=== PATIENT | female | born 1990 | race Caucasian/White ===

== ENCOUNTER 2016-05-24 18:52 | Emergency (ER) | payer MEDICARE, MEDICAID ==
[~2016-05-24 18:52] MED LIST: /QUET10TA OR; ABIL15TA PO; ALLE25CA OR; AUG; AUGMENTIN PO; BUPR100T6 PO; HYDR-3363 PO; IBUP600T PO; KLON0.5T PO; MACR100C3 PO; No Historical Meds; OXCA300T PO; PROP PO; PROZ40CA OR; SAPH5SUB3 SL; SERO200T OR; TRAZ100T2 PO; VICODIN PO; VITAD1000T PO; no home meds
[2016-05-24] MEDS ORDERED: AMOXICILLIN 500 MG CAP As Ordered ONE (19:18)
--- NOTE | 2016-05-24 20:23 | EDDOCDS ---
Nurse's Notes [facility] Name: Sangita Bartlett Age: 26 yrs Sex: Female : 1990 Arrival Date: 05/24/2016 Time: 18:52 Bed PR1 / 25 Private MD: Genie Sylvester Diagnosis: Other and unspecified sprain of wrist-RIGHT;Otitis media, unspecified, left ear Presentation: 05/24 18:55 Presenting complaint: Patient states: left ear "felt plugged" x 1 month. Pt also kc3 reports right wrist pain x 1 week after fall landing on right wrist. Pt is 21 weeks . Adult Sepsis Screening: The patient does not have new or worsening altered mentation. Patient's respiratory rate is less than 22. Systolic blood pressure is greater than 100. Patient has a qSOFA score of 0- Negative Sepsis Screen. Suicide/Homicide risk assessment- the patient denies having any suicidal and/or homicidal ideations and does not present with any other emotional, behavioral or mental health complaints. Status: Patient is not a donor services technician or dependent. Transition of care: patient was not received from another setting of care. 18:55 Acuity: MALENA Level 4 kc3 18:55 Method Of Arrival: Walkin/Carried/Asstd kc3 Triage Assessment: 18:57 General: Appears in no apparent distress, comfortable, Behavior is appropriate for age, kc3 cooperative. Pain: Location: right wrist Pain currently is 6 out of 10 on a pain scale. HIV screening NA for this visit Offered previously. Neurological: Level of Consciousness is awake, alert, obeys commands, Oriented to person, place, time. EENT: Reports pain in left ear Pain is 3 out of 10 on a pain scale. Respiratory: Respiratory effort is even, unlabored. Derm: Skin is pink, warm & dry. Musculoskeletal: Circulation, motion, and sensation intact. 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 Albuterol Inhl as needed 2. albuterol sulfate 90 mcg/actuation Inhl aepb as needed 3. Oral once daily - PMHx: ADHD; Schizophrenia; - PSHx: Tonsillectomy; Appendectomy; Exploratory lap; - Social history: Smoking status: Patient uses tobacco products, light tobacco smoker. No barriers to communication noted, The patient speaks fluent Romanian, Speaks appropriately for age. - Family history: Not pertinent. - : The pt / caregiver states he / she is not on anticoagulants. Home medication list is obtained from the patient. - Exposure Risk Screening:: None identified. Screenin:20 Screening information is obtained from the patient. Fall risk: No risks identified. [facility] Assistance ADL's: requires no assistance with activities of daily living. Abuse/DV Screen: The patient / caregiver reports he/she is: not in a situation that causes fear, pain or injury. Nutritional screening: No deficits noted. Advance Directives: There is no active DNR order. home support is adequate. Assessment: 19:20 General: Appears in no apparent distress, medicated per order. Neurological: Level of ms2 Consciousness is awake, alert, obeys commands. Respiratory: No deficits noted. Airway is patent Respiratory effort is even, unlabored, Respiratory pattern is regular, symmetrical. Derm: Skin is pink, warm & dry. Musculoskeletal: Range of motion intact in all extremities. 20:20 General: no changes from previous assessment, denies needs at present. Reviewed [facility] discharge instructions, encouraged and answered questions, declines offer of further assistance. Vital Signs: 18:53 BP 168 / 82; Pulse 132; Resp 18; Temp 97.7(O); Pulse Ox 98% on R/A; Weight 124.74 kg ct3 (R); Height 5 ft. 11 in. (180.34 cm) (R); Pain 6/10; 20:18 BP 148 / 71 RA Sitting (auto/lg); Pulse 109; Resp 18; Temp 98.8(O); Pulse Ox 98% on rs6 R/A; Pain 5/10; 18:53 Body Mass Index 38.35 (124.74 kg, 180.34 cm) ct3 Vitals: 18:53 Log In Time: May 24, 2016 at 18:50. ct3 ED Course: 18:53 Patient visited by Makenzie Kennedy PCA. ct3 18:53 Genie Sylvester is Private Physician. ct3 18:53 Patient moved to Waiting ct3 18:54 Patient moved to Pre RCE ct3 18:56 Triage Initiated kc3 18:56 Patient moved to Triage 1 rs6 19:06 [facility] dt4 19:06 Daniela Calderon MD is Attending Physician. dt4 19:06 Patient visited by Roxie Ball PA-C. dt4 19:20 [facility] Payment Agreement was scanned into [employer] and attached to record. zo 19:20 Patient moved to TR3 ms2 19:24 The patient / caregiver is instructed regarding the plan of care and ED course. ms2 20:07 Patient moved to PR1 / 25 rs6 20:18 Patient visited by Rain Garcia PCA. rs6 20:19 Patient visited by Rain Garcia PCA. rs6 20:19 Velcro wrist splint applied to right wrist. Patient with positive distal sensation and rs6 brisk distal capillary refill after application. 20:20 No IV's were initiated during this patient's visit. No procedures done that require [facility] assistance. Administered Medications: 19:20 Drug: Amoxicillin 500 mg Route: PO; ms2 Order Results: There are currently no results for this order. Outcome: 20:07 Discharge ordered by Provider. dt4 20:20 Discharge Assessment: Patient awake, alert and oriented x 3. No cognitive and/or [facility] functional deficits noted. Patient verbalized understanding of disposition instructions. patient administered narcotics - no. The following High Risk Discharge criteria are identified: None. Discharged to home ambulatory, with significant other. Condition: good Condition: stable Condition: improved. Discharge instructions given to patient, Instructed on discharge instructions, follow up and referral plans. medication usage, Rest, Ice, Compression and Elevation. Demonstrated understanding of instructions, medications, Pt was receptive of discharge instructions/ teaching. Prescriptions given X 1. No special radiology studies were completed. Property :Personal belongings accompany Pt. 20:22 Patient left the ED. [facility] Signatures: Ricki Hsu RN RN ms2 Maddy Murillo Consuelo, CITRUS PEELER CITRUS PEELER ct3 Joanne Robles RN RN [facility] Roxie Ball PA-C PA-C dt4 Rain Garcia, CITRUS PEELER CITRUS PEELER rs6 Debby Giordano RN RN kc3 Corrections: (The following items were deleted from the chart) 18:59 18:55 Presenting complaint: Patient states: left ear "felt plugged" x 1 month. Pt also kc3 reports right wrist pain x 1 week after fall landing on right wrist. kc3 MTDD
--- NOTE | 2016-05-24 20:23 | EDDOCDS ---
Physician Documentation [facility] Name: Sangita Bartlett Age: 26 yrs Sex: Female : 1990 Arrival Date: 05/24/2016 Time: 18:52 Bed PR Private MD: Genie Sylvester Disposition: 05/24/16 20:07 Discharged to Home/Self Care. Impression: Other and unspecified sprain of wrist - RIGHT, Otitis media, unspecified, left ear. - Condition is Stable. - Discharge Instructions: Otitis Media, Adult, Wrist Splint. - Prescriptions for Amoxicillin 875 mg Oral Tablet - take 1 tablet by ORAL route every 12 hours for 10 days; 20 tablet. - Medication Reconciliation, Local Pharmacy Hours form. - Follow up: Emergency Department; When: As needed; Reason: Worsening of conditions. Follow up: Private Physician; When: 2 - 3 days; Reason: Wound/Symptom Recheck, Recheck today's complaints, Continuance of care. - Problem is new. - Symptoms are unchanged. Historical: - Allergies: GABAPENTIN (Hives); Percocet (Vomit); - Home Meds: 1. Albuterol Inhl as needed 2. albuterol sulfate 90 mcg/actuation Inhl aepb as needed 3. Oral once daily - PMHx: ADHD; Schizophrenia; - PSHx: Tonsillectomy; Appendectomy; Exploratory lap; - Social history: Smoking status: Patient uses tobacco products, light tobacco smoker. No barriers to communication noted, The patient speaks fluent Romanian, Speaks appropriately for age. - Family history: Not pertinent. - : The pt / caregiver states he / she is not on anticoagulants. Home medication list is obtained from the patient. - Exposure Risk Screening:: None identified. 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 11 in. (180.34 cm) (R); Pain 6/10; 20:18 BP 148 / 71 RA Sitting (auto/lg); Pulse 109; Resp 18; Temp 98.8(O); Pulse Ox 98% on rs6 R/A; Pain 5/10; 18:53 Body Mass Index 38.35 (124.74 kg, 180.34 cm) ct3 MDM: 19:14 Financial registration complete. zo 19:17 Amoxicillin 500 mg PO once ordered. dt4 19:18 Wrist, Complete Ordered. EDMS 19:20 [facility] Payment Agreement was scanned into [employer] and attached to record. zo 20:08 Splint Affected Extremity ordered. dt4 Administered Medications: 19:20 Drug: Amoxicillin 500 mg Route: PO; ms2 Signatures: Dispatcher [employer] EDMS Maddy Murillo zo Joanne Robles,RN RN Roxie Cervantes PA-C PACassandra dt4 Debby Giordano RN RN kc3 Ricki Hsu RN ms2 The chart was reviewed and I authenticate all verbal orders and agree with the evaluation and treatment provided.Attachments: 19:20 [facility] Payment Agreement zo MTDD
--- NOTE | 2016-05-24 21:46 | REP ---
Clinical: Trauma. Technique: AP, lateral, bilateral oblique views right wrist . Findings: The carpal bones, surrounding osseous structures, soft tissues, and joint spaces are normal. There is no evidence for acute fracture or dislocation. No subcutaneous emphysema or radiodense foreign body. Impression: No acute fracture or dislocation Signed by Negro Calvillo MD 05/24/2016 09:38 P
--- NOTE | 2016-05-26 21:23 | EDDOCDS ---
Physician Documentation [facility] [place] Name: Sangita Bartlett Age: 26 yrs Sex: Female : 1990 Arrival Date: 05/24/2016 Time: 18:52 Bed PR Private MD: Genie Sylvester Disposition: 05/24/16 20:07 Discharged to Home/Self Care. Impression: Other and unspecified sprain of wrist - RIGHT, Otitis media, unspecified, left ear. - Condition is Stable. - Discharge Instructions: Otitis Media, Adult, Wrist Splint. - Prescriptions for Amoxicillin 875 mg Oral Tablet - take 1 tablet by ORAL route every 12 hours for 10 days; 20 tablet. - Medication Reconciliation, Local Pharmacy Hours form. - Follow up: Emergency Department; When: As needed; Reason: Worsening of conditions. Follow up: Private Physician; When: 2 - 3 days; Reason: Wound/Symptom Recheck, Recheck today's complaints, Continuance of care. - Problem is new. - Symptoms are unchanged. Historical: - Allergies: GABAPENTIN (Hives); Percocet (Vomit); - Home Meds: 1. Albuterol Inhl as needed 2. albuterol sulfate 90 mcg/actuation Inhl aepb as needed 3. Oral once daily - PMHx: ADHD; Schizophrenia; - PSHx: Tonsillectomy; Appendectomy; Exploratory lap; - Social history: Smoking status: Patient uses tobacco products, light tobacco smoker. No barriers to communication noted, The patient speaks fluent Kyrgyz, Speaks appropriately for age. - Family history: Not pertinent. - : The pt / caregiver states he / she is not on anticoagulants. Home medication list is obtained from the patient. - Exposure Risk Screening:: None identified. 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 11 in. (180.34 cm) (R); Pain 6/10; 20:18 BP 148 / 71 RA Sitting (auto/lg); Pulse 109; Resp 18; Temp 98.8(O); Pulse Ox 98% on rs6 R/A; Pain 09/21; 18:53 Body Mass Index 38.35 (124.74 kg, 180.34 cm) ct3 MDM: 19:14 Financial registration complete. zo 19:17 Amoxicillin 500 mg PO once ordered. dt4 19:18 Wrist, Complete Ordered. EDMS 19:20 [facility] Payment Agreement was scanned into [email or web address] and attached to record. zo 20:08 Splint Affected Extremity ordered. dt4 05/25 10:13 T-Sheet-- Draft Copy was scanned into [employer] and attached to record. gb Administered Medications: 05/24 19:20 Drug: Amoxicillin 500 mg Route: PO; ms2 Signatures: Dispatcher [employer] EDMS Joana Galindo, Mateo Reg gb Maddy Murillo zo Joanne Robles,RN RN [facility] Roxie Ball, KAMILA PACassandra dt4 Debby Giordano RN RN kc3 Ricki Hsu RN ms2 The chart was reviewed and I authenticate all verbal orders and agree with the evaluation and treatment provided.Attachments: 19:20 [facility] Payment Agreement zo 05/25 10:13 T-Sheet-- Draft Copy gb Chart Complete MTDD
--- NOTE | 2016-05-26 21:23 | EDDOCDS ---
Physician Documentation [facility] Name: Sangita Bartlett Age: 26 yrs Sex: Female : 1990 Arrival Date: 05/24/2016 Time: 18:52 Bed PR Private MD: Genie Sylvester Disposition: 05/24/16 20:07 Discharged to Home/Self Care. Impression: Other and unspecified sprain of wrist - RIGHT, Otitis media, unspecified, left ear. - Condition is Stable. - Discharge Instructions: Otitis Media, Adult, Wrist Splint. - Prescriptions for Amoxicillin 875 mg Oral Tablet - take 1 tablet by ORAL route every 12 hours for 10 days; 20 tablet. - Medication Reconciliation, Local Pharmacy Hours form. - Follow up: Emergency Department; When: As needed; Reason: Worsening of conditions. Follow up: Private Physician; When: 2 - 3 days; Reason: Wound/Symptom Recheck, Recheck today's complaints, Continuance of care. - Problem is new. - Symptoms are unchanged. Historical: - Allergies: GABAPENTIN (Hives); Percocet (Vomit); - Home Meds: 1. Albuterol Inhl as needed 2. albuterol sulfate 90 mcg/actuation Inhl aepb as needed 3. Oral once daily - PMHx: ADHD; Schizophrenia; - PSHx: Tonsillectomy; Appendectomy; Exploratory lap; - Social history: Smoking status: Patient uses tobacco products, light tobacco smoker. No barriers to communication noted, The patient speaks fluent Arabic, Speaks appropriately for age. - Family history: Not pertinent. - : The pt / caregiver states he / she is not on anticoagulants. Home medication list is obtained from the patient. - Exposure Risk Screening:: None identified. 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 11 in. (180.34 cm) (R); Pain 6/10; 20:18 BP 148 / 71 RA Sitting (auto/lg); Pulse 109; Resp 18; Temp 98.8(O); Pulse Ox 98% on rs6 R/A; Pain 09/21; 18:53 Body Mass Index 38.35 (124.74 kg, 180.34 cm) ct3 MDM: 19:14 Financial registration complete. zo 19:17 Amoxicillin 500 mg PO once ordered. dt4 19:18 Wrist, Complete Ordered. EDMS 19:20 [facility] Payment Agreement was scanned into [employer] and attached to record. zo 20:08 Splint Affected Extremity ordered. dt4 05/25 10:13 T-Sheet-- Draft Copy was scanned into [employer] and attached to record. gb Administered Medications: 05/24 19:20 Drug: Amoxicillin 500 mg Route: PO; ms2 Signatures: Dispatcher [employer] EDMS Joana Galindo, Mateo Reg gb Maddy Murillo zo Joanne Robles,RN RN [facility] Roxie Ball, KAMILA PACassandra dt4 Debby Giordano RN RN kc3 Ricki Hsu RN ms2 The chart was reviewed and I authenticate all verbal orders and agree with the evaluation and treatment provided.Attachments: 19:20 [facility] Payment Agreement zo 05/25 10:13 T-Sheet-- Draft Copy gb Chart Complete MTDD
--- NOTE | 2016-05-26 21:23 | EDDOCDS ---
Nurse's Notes [facility] Name: Sangita Bartlett Age: 26 yrs Sex: Female : 1990 Arrival Date: 05/24/2016 Time: 18:52 Bed PR1 / 25 Private MD: Genie Sylvester Diagnosis: Other and unspecified sprain of wrist-RIGHT;Otitis media, unspecified, left ear Presentation: 05/24 18:55 Presenting complaint: Patient states: left ear "felt plugged" x 1 month. Pt also kc3 reports right wrist pain x 1 week after fall landing on right wrist. Pt is 21 weeks . Adult Sepsis Screening: The patient does not have new or worsening altered mentation. Patient's respiratory rate is less than 22. Systolic blood pressure is greater than 100. Patient has a qSOFA score of 0- Negative Sepsis Screen. Suicide/Homicide risk assessment- the patient denies having any suicidal and/or homicidal ideations and does not present with any other emotional, behavioral or mental health complaints. 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 Transition of care: patient was not received from another setting of care. 18:55 Acuity: MALENA Level 4 kc3 18:55 Method Of Arrival: Walkin/Carried/Asstd kc3 Triage Assessment: 18:57 General: Appears in no apparent distress, comfortable, Behavior is appropriate for age, kc3 cooperative. Pain: Location: right wrist Pain currently is 6 out of 10 on a pain scale. HIV screening NA for this visit Offered previously. Neurological: Level of Consciousness is awake, alert, obeys commands, Oriented to person, place, time. EENT: Reports pain in left ear Pain is 3 out of 10 on a pain scale. Respiratory: Respiratory effort is even, unlabored. Derm: Skin is pink, warm & dry. Musculoskeletal: Circulation, motion, and sensation intact. 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 Albuterol Inhl as needed 2. albuterol sulfate 90 mcg/actuation Inhl aepb as needed 3. Oral once daily - PMHx: ADHD; Schizophrenia; - PSHx: Tonsillectomy; Appendectomy; Exploratory lap; - Social history: Smoking status: Patient uses tobacco products, light tobacco smoker. No barriers to communication noted, The patient speaks fluent German, Speaks appropriately for age. - Family history: Not pertinent. - : The pt / caregiver states he / she is not on anticoagulants. Home medication list is obtained from the patient. - Exposure Risk Screening:: None identified. Screenin:20 Screening information is obtained from the patient. Fall risk: No risks identified. [facility] Assistance ADL's: requires no assistance with activities of daily living. Abuse/DV Screen: The patient / caregiver reports he/she is: not in a situation that causes fear, pain or injury. Nutritional screening: No deficits noted. Advance Directives: There is no active DNR order. home support is adequate. Assessment: 19:20 General: Appears in no apparent distress, medicated per order. Neurological: Level of ms2 Consciousness is awake, alert, obeys commands. Respiratory: No deficits noted. Airway is patent Respiratory effort is even, unlabored, Respiratory pattern is regular, symmetrical. Derm: Skin is pink, warm & dry. Musculoskeletal: Range of motion intact in all extremities. 20:20 General: no changes from previous assessment, denies needs at present. Reviewed [facility] discharge instructions, encouraged and answered questions, declines offer of further assistance. Vital Signs: 18:53 BP 168 / 82; Pulse 132; Resp 18; Temp 97.7(O); Pulse Ox 98% on R/A; Weight 124.74 kg ct3 (R); Height 5 ft. 11 in. (180.34 cm) (R); Pain 6/10; 20:18 BP 148 / 71 RA Sitting (auto/lg); Pulse 109; Resp 18; Temp 98.8(O); Pulse Ox 98% on rs6 R/A; Pain 5/10; 18:53 Body Mass Index 38.35 (124.74 kg, 180.34 cm) ct3 Vitals: 18:53 Log In Time: May 24, 2016 at 18:50. ct3 ED Course: 18:53 Patient visited by Makenzie Kennedy PCA. ct3 18:53 Genie Sylvester is Private Physician. ct3 18:53 Patient moved to Waiting ct3 18:54 Patient moved to Pre RCE ct3 18:56 Triage Initiated kc3 18:56 Patient moved to Triage 1 rs6 19:06 [facility] dt4 19:06 Daniela Calderon MD is Attending Physician. dt4 19:06 Patient visited by Roxie Ball PA-C. dt4 19:20 [facility] Payment Agreement was scanned into [email or web address] and attached to record. zo 19:20 Patient moved to TR3 ms2 19:24 The patient / caregiver is instructed regarding the plan of care and ED course. ms2 20:07 Patient moved to PR1 / 25 rs6 20:18 Patient visited by Rain Garcia, CHEMICAL RADIATION TECHNICIAN. rs6 20:19 Patient visited by Rain Garcia, CHEMICAL RADIATION TECHNICIAN. rs6 20:19 Velcro wrist splint applied to right wrist. Patient with positive distal sensation and rs6 brisk distal capillary refill after application. 20:20 No IV's were initiated during this patient's visit. No procedures done that require [facility] assistance. 22:46 Wrist, Complete Returned. EDMS 05/25 10:13 T-Sheet-- Draft Copy was scanned into [email or web address] and attached to record. gb Administered Medications: 05/24 19:20 Drug: Amoxicillin 500 mg Route: PO; ms2 Order Results: Radiology Order: Wrist, Complete Test: Wrist, Complete REASON FOR EXAMINATION: right wrist injury, pt ; Clinical: Trauma.; ; Technique: AP, lateral, bilateral oblique views right wrist .; ; Findings: The carpal bones, surrounding osseous structures, soft tissues, and; joint spaces are normal. There is no evidence for acute fracture or dislocation.; No subcutaneous emphysema or radiodense foreign body.; ; Impression:; No acute fracture or dislocation; ; ; Signed by; Negro Calvillo MD 05/24/2016 09:38 P; Outcome: 20:07 Discharge ordered by Provider. dt4 20:20 Discharge Assessment: Patient awake, alert and oriented x 3. No cognitive and/or cjh functional deficits noted. Patient verbalized understanding of disposition instructions. patient administered narcotics - no. The following High Risk Discharge criteria are identified: None. Discharged to home ambulatory, with significant other. Condition: good Condition: stable Condition: improved. Discharge instructions given to patient, Instructed on discharge instructions, follow up and referral plans. medication usage, Rest, Ice, Compression and Elevation. Demonstrated understanding of instructions, medications, Pt was receptive of discharge instructions/ teaching. Prescriptions given X 1. No special radiology studies were completed. Property :Personal belongings accompany Pt. 20:22 Patient left the ED. [facility] Signatures: Dispatcher [employer] Ricki Gonzalez,RN RN ms2 Joana Galindo, Reg Reg gb Chidi, Maddy zo Brent, Makenzie, CHEMICAL RADIATION TECHNICIAN CHEMICAL RADIATION TECHNICIAN ct3 Joanne Robles RN RN [facility] Roxie Ball PANasirC PA-C dt4 Rain Garcia, CHEMICAL RADIATION TECHNICIAN CHEMICAL RADIATION TECHNICIAN rs6 Debby Giordano RN RN kc3 Corrections: (The following items were deleted from the chart) 18:59 18:55 Presenting complaint: Patient states: left ear "felt plugged" x 1 month. Pt also kc3 reports right wrist pain x 1 week after fall landing on right wrist. kc3 Chart Complete MTDD
== END 2016-05-24 20:22 | disposition home or self-care (01) ==
LOC: M ED 18:52
DX: O99.89 Other specified diseases and conditions complicating pregnancy, childbirth and the puerperium (principal); H66.92 Otitis media, unspecified, left ear; S63.91XA Sprain of unspecified part of right wrist and hand, initial encounter; W19.XXXA Unspecified fall, initial encounter; Y92.89 Other specified places as the place of occurrence of the external cause; Y93.89 Activity, other specified; Y99.8 Other external cause status; F90.9 Attention-deficit hyperactivity disorder, unspecified type; F20.9 Schizophrenia, unspecified; O99.332 Smoking (tobacco) complicating pregnancy, second trimester; Z79.899 Other long term (current) drug therapy; Z79.51 Long term (current) use of inhaled steroids; Z3A.21 21 weeks gestation of pregnancy; F17.210 Nicotine dependence, cigarettes, uncomplicated; Z88.8 Allergy status to other drugs, medicaments and biological substances

== ENCOUNTER → 2016-05-27 | Outpatient (CLI) | payer MEDICARE, MEDICAID ==
--- NOTE | 2016-05-27 15:26 | REP ---
Obstetric sonography: History: Supervision of followup anatomy. Findings: Scanning through the gravid uterus demonstrates a viable single intrauterine gestation in a cephalic lie. motion is observed and heart rate is recorded at 153 beats per minute. A posterior grade 1 placenta is seen without evidence of previa. Amniotic fluid is subjectively normal. Closed cervical length is 4.2 cm. No extrauterine abnormalities observed. There has been appropriate interval growth. Exam quality was inhibited by maternal body habitus. There is mild bilateral renal pyelectasis within normal limits. No anomaly is seen. Right ventricular cardiac outflow tract view visualization is still less than optimal due to position. The following additional anatomic structures are identified today and felt to be unremarkable: cranium, choroid plexus, cavum, cerebellum and posterior fossa, lungs, four-chamber heart with a left ventricular cardiac outflow tract view, diaphragm, left-sided stomach, urinary bladder, spine, upper and lower extremities. Biometry chart: BPD 4.9 cm = 20 weeks 6 days Head circumference 18.7 cm = 21 weeks 0 days Abdominal circumference 15.9 cm = 21 weeks 0 days Femur length 3.9 cm = 22 weeks 3 days Humeral length 3.5 cm = 22 weeks 1 day Cerebellar diameter 2.0 cm = 19 weeks 2 days HC/AC ratio normal 1.18 cephalic index normal 0.71 estimated weight 437 grams 0 pounds 15 ounces 37th percentile for 21 weeks 6 days. Impression: Viable single intrauterine gestation at 21 weeks 1 day by today's composite sonographic criteria. Expected gestational age estimate based on prior sonography is 21 weeks 6 days GEMA by prior sonography October 01, 2016. right ventricular cardiac outflow tract views visualization remains less than optimal. Otherwise anatomic survey is felt to be complete. There is appropriate interval growth. Signed by Kishor June MD 05/27/2016 03:33 P
== END ==
LOC: M SMT 13:51
PROVIDERS: ATTEND Advanced Practice Midwife
DX: Z34.02 Encounter for supervision of normal first pregnancy, second trimester (principal)

== ENCOUNTER 2016-06-04 11:19 | Emergency (ER) | payer MEDICARE, MEDICAID ==
[2016-06-04] MEDS ORDERED: ACETAMINOPHEN 325 MG TAB As Ordered ONE (12:03)
--- NOTE | 2016-06-04 13:40 | EDDOCDS ---
Physician Documentation [facility] Name: Sangita Bartlett Age: 26 yrs Sex: Female : 1990 Arrival Date: 06/04/2016 Time: 11:19 Bed PR Private MD: Genie Sylvester Disposition: 06/04/16 13:28 Discharged to Home/Self Care. Impression: Sprain of other part of right wrist and hand. - Condition is Stable. - Discharge Instructions: Finger Sprain, [id number]. - Medication Reconciliation, Local Pharmacy Hours form. - Follow up: Genie Sylvester; When: 1 - 2 days; Reason: Recheck today's complaints, Continuance of care. Follow up: Emergency Department; Reason: Worsening of conditions. Follow up: [facility]; When: Call to arrange an appointment; Reason: Further diagnostic work-up, Recheck today's complaints, Continuance of care. - Problem is new. - Symptoms have improved. Historical: - Allergies: GABAPENTIN (Hives); Percocet (Vomit); - Home Meds: 1. Albuterol Inhl as needed 2. albuterol sulfate 90 mcg/actuation Inhl aepb as needed 3. Oral once daily 4. amoxicillin 875 mg Oral tab 1 tab every 12 hours (Last dose: 06/04/2016 08:00) - PMHx: ADHD; Schizophrenia; - PSHx: Tonsillectomy; Appendectomy; Exploratory lap; - Social history: Smoking status: Patient uses tobacco products, light tobacco smoker. No barriers to communication noted. - Family history: Not pertinent. - : The pt / caregiver states he / she is not on anticoagulants. Home medication list is obtained from the patient. - Exposure Risk Screening:: None identified. 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 11 in. (180.34 cm) (R); Pain 6/10; 13:38 BP 132 / 59; Pulse 110; Resp 16; Temp 97.3(TE); Pulse Ox 100% on R/A; Pain 5/10; kr3 11:23 Body Mass Index 36.96 (120.20 kg, 180.34 cm) mt4 Procedures: 13:26 Fracture care/splinting: Splint applied to right hand using Thumb Spica splint applied. ef1 applied by nurse. Examined by me, post splint application: neurovascular intact, 2+ distal pulses palpable, brisk capillary refill noted, Patient tolerated well. MDM: 11:51 Financial registration complete. lg 12:00 Ice Pack ordered. ef1 12:00 Acetaminophen Tablet 975 mg PO once ordered. ef1 12:01 Hand, Complete: Pt is , shield pt please Ordered. EDND 12:25 [facility] Payment Agreement was scanned into [employer] and attached to record. lg 13:25 Splint ordered. ef1 Administered Medications: 12:05 Drug: Acetaminophen 975 mg [acetaminophen 325 mg tablet (3 tabs)] Route: PO; jf3 13:38 Follow up: BP 132 / 59; Pulse 110 bpm; Resp 16 bpm; Temp 97.3 Temporal; Pulse Ox 100% kr3 RA; Pain 5/10 Adult Signatures: Dispatcher Med[employer] EDND Shannon Be Reg Reg lg Margaret Theodore,RN RN kr3 Yamilka Ricks, PA-C PA-C ef1 Joanne Robles RN RN [facility] Kade Pacheco RN jf3 The chart was reviewed and I authenticate all verbal orders and agree with the evaluation and treatment provided.Attachments: 12:25 [facility] Payment Agreement lg MTDD
--- NOTE | 2016-06-04 13:40 | EDDOCDS ---
Nurse's Notes [facility] Name: Sangita Bartlett Age: 26 yrs Sex: Female : 1990 Arrival Date: 06/04/2016 Time: 11:19 Bed PR Private MD: Genie Sylvester Diagnosis: Sprain of other part of right wrist and hand Presentation: 06/04 11:29 Presenting complaint: Patient states: I have a one hundred pound puppy and now having [facility] thumb pain especially with movement after she bolted while I was holding leash. Seen here a week ago and it is getting worse. Adult Sepsis Screening: The patient does not have new or worsening altered mentation. Patient's respiratory rate is less than 22. Systolic blood pressure is greater than 100. Patient has a qSOFA score of 0- Negative Sepsis Screen. Suicide/Homicide risk assessment- The patient reports that he/she has a prior history of suicide attempt and/or organized plan. 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 Transition of care: patient was not received from another setting of care. 11:29 Acuity: MALENA Level 4 [facility] 11:29 Method Of Arrival: Walkin/Carried/Asstd [facility] Triage Assessment: 11:32 General: Appears in no apparent distress, comfortable, Behavior is appropriate for age, [facility] cooperative. Pain: Location: right hand Pain currently is 6 out of 10 on a pain scale. HIV screening NA for this visit Offered previously. Musculoskeletal: Range of motion limited in MCP of right thumb. 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 Albuterol Inhl as needed 2. albuterol sulfate 90 mcg/actuation Inhl aepb as needed 3. Oral once daily 4. amoxicillin 875 mg Oral tab 1 tab every 12 hours (Last dose: 06/04/2016 08:00) - PMHx: ADHD; Schizophrenia; - PSHx: Tonsillectomy; Appendectomy; Exploratory lap; - Social history: Smoking status: Patient uses tobacco products, light tobacco smoker. No barriers to communication noted. - Family history: Not pertinent. - : The pt / caregiver states he / she is not on anticoagulants. Home medication list is obtained from the patient. - Exposure Risk Screening:: None identified. Screenin:33 Screening information is obtained from the patient. Fall risk: No risks identified. kr3 Assistance ADL's: requires no assistance with activities of daily living. Abuse/DV Screen: The patient / caregiver reports he/she is: not in a situation that causes fear, pain or injury. Nutritional screening: No deficits noted. Advance Directives: Currently, there is no health care proxy. home support is adequate. Assessment: 13:38 Reassessment: Patient states feeling better. General: Appears comfortable. Pain: kr3 Location: MCP of right thumb Pain currently is 5 out of 10 on a pain scale. Musculoskeletal: Range of motion intact in all extremities. Vital Signs: 11:23 BP 138 / 69 RA Sitting (auto/reg); Pulse 120 RA; Resp 18 S; Temp 98.2(O); Pulse Ox 98% mt4 on R/A; Weight 120.2 kg (R); Height 5 ft. 11 in. (180.34 cm) (R); Pain 6/10; 13:38 BP 132 / 59; Pulse 110; Resp 16; Temp 97.3(TE); Pulse Ox 100% on R/A; Pain 5/10; kr3 11:23 Body Mass Index 36.96 (120.20 kg, 180.34 cm) mt4 Vitals: 11:23 Log In Time: June 04, 2016 at 11:19. nj4 ED Course: 11:22 Patient visited by Sravani Masters. mt4 11:22 Genie Sylvester is Private Physician. mt4 11:22 Patient moved to Waiting mt4 11:24 Patient moved to Pre RCE mt4 11:31 Triage Initiated cjh 11:33 Patient moved to Triage 3 cj 11:39 Yamil[facility] Ricks PA-C [facility]. ef1 11:39 Oskar Walton MD is Attending Physician. ef1 11:51 Patient visited by Yamilka Ricks PA-C. ef1 12:17 Patient moved to [place] [id number] 12:25 [facility] Payment Agreement was scanned into [employer] and attached to record. lg 12:59 Patient visited by Yamilka Ricks PA-C. ef1 13:24 Patient moved to PR1 / 25 ef1 13:28 Genie Sylvester is Referral Physician. ef1 13:28 [facility] ef1 13:32 No IV's were initiated during this patient's visit. No procedures done that require kr3 assistance. right thumb spica. 13:34 The patient / caregiver is instructed regarding the plan of care and ED course. Patient vickey3 has correct armband on for positive identification. Administered Medications: 12:05 Drug: Acetaminophen 975 mg [acetaminophen 325 mg tablet (3 tabs)] Route: PO; jf3 13:38 Follow up: BP 132 / 59; Pulse 110 bpm; Resp 16 bpm; Temp 97.3 Temporal; Pulse Ox 100% kr3 RA; Pain 5/10 Adult Order Results: There are currently no results for this order. Outcome: 13:28 Discharge ordered by Provider. ef1 13:34 No special radiology studies were completed. Property sent home with patient. kr3 13:38 Discharge Assessment: patient administered narcotics - no. The following High Risk kr3 Discharge criteria are identified: None. Discharged to home ambulatory. Condition: stable. Discharge instructions given to patient, Instructed on discharge instructions, follow up and referral plans. Demonstrated understanding of instructions, Pt was receptive of discharge instructions/ teaching. 13:39 Patient left the ED. kr3 Signatures: Shannon Be Reg Reg lg Robie, Kathleen,RN RN kr3 Sravani Masters nj4 Yamilka Ricks PA-Alok PA-C ef1 Joanne RoblesRN TRISH [facility] Kade Pacheco,RN RN jf3 MTDD
--- NOTE | 2016-06-04 13:55 | REP ---
Right hand series: Four views. History: Trauma. Pain in the base of the right thumb. Findings: Four views of the right hand demonstrate normal bones and joints. No fracture or subluxation is seen. Impression: Negative right hand views. Signed by Kishor Jnue MD 06/04/2016 02:39 P
--- NOTE | 2016-06-06 14:39 | EDDOCDS ---
Nurse's Notes [facility] Name: Sangita Bartlett Age: 26 yrs Sex: Female : 1990 Arrival Date: 06/04/2016 Time: 11:19 Bed PR Private MD: Genie Sylvester Diagnosis: Sprain of other part of right wrist and hand Presentation: 06/04 11:29 Presenting complaint: Patient states: I have a one hundred pound puppy and now having [facility] thumb pain especially with movement after she bolted while I was holding leash. Seen here a week ago and it is getting worse. Adult Sepsis Screening: The patient does not have new or worsening altered mentation. Patient's respiratory rate is less than 22. Systolic blood pressure is greater than 100. Patient has a qSOFA score of 0- Negative Sepsis Screen. Suicide/Homicide risk assessment- The patient reports that he/she has a prior history of suicide attempt and/or organized plan. 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 Transition of care: patient was not received from another setting of care. 11:29 Acuity: MALENA Level 4 [facility] 11:29 Method Of Arrival: Walkin/Carried/Asstd [facility] Triage Assessment: 11:32 General: Appears in no apparent distress, comfortable, Behavior is appropriate for age, [facility] cooperative. Pain: Location: right hand Pain currently is 6 out of 10 on a pain scale. HIV screening NA for this visit Offered previously. Musculoskeletal: Range of motion limited in MCP of right thumb. 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 Albuterol Inhl as needed 2. albuterol sulfate 90 mcg/actuation Inhl aepb as needed 3. Oral once daily 4. amoxicillin 875 mg Oral tab 1 tab every 12 hours (Last dose: 06/04/2016 08:00) - PMHx: ADHD; Schizophrenia; - PSHx: Tonsillectomy; Appendectomy; Exploratory lap; - Social history: Smoking status: Patient uses tobacco products, light tobacco smoker. No barriers to communication noted. - Family history: Not pertinent. - : The pt / caregiver states he / she is not on anticoagulants. Home medication list is obtained from the patient. - Exposure Risk Screening:: None identified. Screenin:33 Screening information is obtained from the patient. Fall risk: No risks identified. kr3 Assistance ADL's: requires no assistance with activities of daily living. Abuse/DV Screen: The patient / caregiver reports he/she is: not in a situation that causes fear, pain or injury. Nutritional screening: No deficits noted. Advance Directives: Currently, there is no health care proxy. home support is adequate. Assessment: 13:38 Reassessment: Patient states feeling better. General: Appears comfortable. Pain: kr3 Location: MCP of right thumb Pain currently is 5 out of 10 on a pain scale. Musculoskeletal: Range of motion intact in all extremities. Vital Signs: 11:23 BP 138 / 69 RA Sitting (auto/reg); Pulse 120 RA; Resp 18 S; Temp 98.2(O); Pulse Ox 98% mt4 on R/A; Weight 120.2 kg (R); Height 5 ft. 11 in. (180.34 cm) (R); Pain 6/10; 13:38 BP 132 / 59; Pulse 110; Resp 16; Temp 97.3(TE); Pulse Ox 100% on R/A; Pain 5/10; kr3 11:23 Body Mass Index 36.96 (120.20 kg, 180.34 cm) mt4 Vitals: 11:23 Log In Time: June 04, 2016 at 11:19. hi4 ED Course: 11:22 Patient visited by Sravani Masters. mt4 11:22 Genie Sylvester is Private Physician. mt4 11:22 Patient moved to Waiting mt4 11:24 Patient moved to Pre RCE mt4 11:31 Triage Initiated cjh 11:33 Patient moved to Triage 3 cj 11:39 [facility]il[facility]icks [facility]C [facility] ef1 11:39 Oskar Walton MD is Attending Physician. ef1 11:51 Patient visited by Yamilka Ricks PA-C. ef1 12:17 Patient moved to [place] [id number] 12:25 [facility] Payment Agreement was scanned into APR and attached to record. lg 12:59 Patient visited by Yamilka Ricks PA-C. ef1 13:24 Patient moved to PR1 / 25 ef1 13:28 Genie Sylvester is Referral Physician. ef1 13:28 [facility] is Referral Physician. ef1 13:32 No IV's were initiated during this patient's visit. No procedures done that require kr3 assistance. right thumb spica. 13:34 The patient / caregiver is instructed regarding the plan of care and ED course. Patient porfirio has correct armband on for positive identification. 14:34 Hand, Complete: Pt is , shield pt please Returned. EDMS 14:39 T-Sheet-- Draft Copy was scanned into APR and attached to record. gb 14:40 Radiology Report was scanned into APR and attached to record. gb Administered Medications: 12:05 Drug: Acetaminophen 975 mg [acetaminophen 325 mg tablet (3 tabs)] Route: PO; jf3 13:38 Follow up: BP 132 / 59; Pulse 110 bpm; Resp 16 bpm; Temp 97.3 Temporal; Pulse Ox 100% kr3 RA; Pain /10 Adult Order Results: Radiology Order: Hand, Complete: Pt is , shield pt please Test: Hand, Complete: Pt is , shield pt please REASON FOR EXAMINATION: Trauma; Right hand series: Four views.; ; History: Trauma. Pain in the base of the right thumb.; ; Findings: Four views of the right hand demonstrate normal bones and joints. No; fracture or subluxation is seen.; ; Impression:; ; Negative right hand views.; ; ; Signed by; Kishor June MD 06/04/2016 02:39 P; Outcome: 13:28 Discharge ordered by Provider. ef1 13:34 No special radiology studies were completed. Property sent home with patient. kr3 13:38 Discharge Assessment: patient administered narcotics - no. The following High Risk kr3 Discharge criteria are identified: None. Discharged to home ambulatory. Condition: stable. Discharge instructions given to patient, Instructed on discharge instructions, follow up and referral plans. Demonstrated understanding of instructions, Pt was receptive of discharge instructions/ teaching. 13:39 Patient left the ED. kr3 Signatures: Dispatcher [employer] EDMS Joana Galindo, Reg Reg gb Shannon Be, Reg Reg lg Margaret Theodore RN RN kr3 Sravani Masters hi4 Yamilka Ricks, PA-C PA-C ef1 Joanne Robles,RN RN cjh Kade Pacheco,RN RN jf3 Chart Complete MTDD
--- NOTE | 2016-06-06 14:39 | EDDOCDS ---
Physician Documentation [facility] Name: Sangita Bartlett Age: 26 yrs Sex: Female : 1990 Arrival Date: 06/04/2016 Time: 11:19 Bed PR Private MD: Genie Sylvester Disposition: 06/04/16 13:28 Discharged to Home/Self Care. Impression: Sprain of other part of right wrist and hand. - Condition is Stable. - Discharge Instructions: Finger Sprain, [id number]. - Medication Reconciliation, Local Pharmacy Hours form. - Follow up: Genie Sylvester; When: 1 - 2 days; Reason: Recheck today's complaints, Continuance of care. Follow up: Emergency Department; Reason: Worsening of conditions. Follow up: [facility]; When: Call to arrange an appointment; Reason: Further diagnostic work-up, Recheck today's complaints, Continuance of care. - Problem is new. - Symptoms have improved. Historical: - Allergies: GABAPENTIN (Hives); Percocet (Vomit); - Home Meds: 1. Albuterol Inhl as needed 2. albuterol sulfate 90 mcg/actuation Inhl aepb as needed 3. Oral once daily 4. amoxicillin 875 mg Oral tab 1 tab every 12 hours (Last dose: 06/04/2016 08:00) - PMHx: ADHD; Schizophrenia; - PSHx: Tonsillectomy; Appendectomy; Exploratory lap; - Social history: Smoking status: Patient uses tobacco products, light tobacco smoker. No barriers to communication noted. - Family history: Not pertinent. - : The pt / caregiver states he / she is not on anticoagulants. Home medication list is obtained from the patient. - Exposure Risk Screening:: None identified. 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 11 in. (180.34 cm) (R); Pain 6/10; 13:38 BP 132 / 59; Pulse 110; Resp 16; Temp 97.3(TE); Pulse Ox 100% on R/A; Pain 5/10; kr3 11:23 Body Mass Index 36.96 (120.20 kg, 180.34 cm) mt4 Procedures: 13:26 Fracture care/splinting: Splint applied to right hand using Thumb Spica splint applied. ef1 applied by nurse. Examined by me, post splint application: neurovascular intact, 2+ distal pulses palpable, brisk capillary refill noted, Patient tolerated well. MDM: 11:51 Financial registration complete. lg 12:00 Ice Pack ordered. ef1 12:00 Acetaminophen Tablet 975 mg PO once ordered. ef1 12:01 Hand, Complete: Pt is , shield pt please Ordered. EDMS 12:25 [facility] Payment Agreement was scanned into [employer] and attached to record. lg 13:25 Splint ordered. ef1 14:39 T-Sheet-- Draft Copy was scanned into [employer] and attached to record. gb 14:40 Radiology Report was scanned into [employer] and attached to record. gb Administered Medications: 12:05 Drug: Acetaminophen 975 mg [acetaminophen 325 mg tablet (3 tabs)] Route: PO; jf3 13:38 Follow up: BP 132 / 59; Pulse 110 bpm; Resp 16 bpm; Temp 97.3 Temporal; Pulse Ox 100% kr3 RA; Pain 5/10 Adult Signatures: Dispatcher [employer] EDMA Joana Galindo, Reg Reg gb Shannon Be, Reg Reg lg Margaret TheodoreRN RN kr3 Yamilka Ricks PA-C PACassandra ef1 Joanne Robles RN RN [facility] Kade Pacheco RN jf3 The chart was reviewed and I authenticate all verbal orders and agree with the evaluation and treatment provided.Attachments: 12:25 [facility] Payment Agreement lg 14:39 T-Sheet-- Draft Copy gb Chart Complete MTDD
--- NOTE | 2016-06-06 14:39 | EDDOCDS ---
Physician Documentation [facility] Name: Sangita Bartlett Age: 26 yrs Sex: Female : 1990 Arrival Date: 06/04/2016 Time: 11:19 Bed PR Private MD: Genie Sylvester Disposition: 06/04/16 13:28 Discharged to Home/Self Care. Impression: Sprain of other part of right wrist and hand. - Condition is Stable. - Discharge Instructions: Finger Sprain, [id number]. - Medication Reconciliation, Local Pharmacy Hours form. - Follow up: Genie Sylvester; When: 1 - 2 days; Reason: Recheck today's complaints, Continuance of care. Follow up: Emergency Department; Reason: Worsening of conditions. Follow up: [facility]; When: Call to arrange an appointment; Reason: Further diagnostic work-up, Recheck today's complaints, Continuance of care. - Problem is new. - Symptoms have improved. Historical: - Allergies: GABAPENTIN (Hives); Percocet (Vomit); - Home Meds: 1. Albuterol Inhl as needed 2. albuterol sulfate 90 mcg/actuation Inhl aepb as needed 3. Oral once daily 4. amoxicillin 875 mg Oral tab 1 tab every 12 hours (Last dose: 06/04/2016 08:00) - PMHx: ADHD; Schizophrenia; - PSHx: Tonsillectomy; Appendectomy; Exploratory lap; - Social history: Smoking status: Patient uses tobacco products, light tobacco smoker. No barriers to communication noted. - Family history: Not pertinent. - : The pt / caregiver states he / she is not on anticoagulants. Home medication list is obtained from the patient. - Exposure Risk Screening:: None identified. 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 11 in. (180.34 cm) (R); Pain 6/10; 13:38 BP 132 / 59; Pulse 110; Resp 16; Temp 97.3(TE); Pulse Ox 100% on R/A; Pain 5/10; kr3 11:23 Body Mass Index 36.96 (120.20 kg, 180.34 cm) mt4 Procedures: 13:26 Fracture care/splinting: Splint applied to right hand using Thumb Spica splint applied. ef1 applied by nurse. Examined by me, post splint application: neurovascular intact, 2+ distal pulses palpable, brisk capillary refill noted, Patient tolerated well. MDM: 11:51 Financial registration complete. lg 12:00 Ice Pack ordered. ef1 12:00 Acetaminophen Tablet 975 mg PO once ordered. ef1 12:01 Hand, Complete: Pt is , shield pt please Ordered. EDMS 12:25 [facility] Payment Agreement was scanned into [employer] and attached to record. lg 13:25 Splint ordered. ef1 14:39 T-Sheet-- Draft Copy was scanned into [employer] and attached to record. gb 14:40 Radiology Report was scanned into [employer] and attached to record. gb Administered Medications: 12:05 Drug: Acetaminophen 975 mg [acetaminophen 325 mg tablet (3 tabs)] Route: PO; jf3 13:38 Follow up: BP 132 / 59; Pulse 110 bpm; Resp 16 bpm; Temp 97.3 Temporal; Pulse Ox 100% kr3 RA; Pain 5/10 Adult Signatures: Dispatcher [employer] EDNH Joana Galindo, Reg Reg gb Shannon Be, Reg Reg lg Margaret TheodoreRN RN kr3 Yamilka Ricks PA-C PACassandra ef1 Joanne Robles RN RN [facility] Kade Pacheco RN jf3 The chart was reviewed and I authenticate all verbal orders and agree with the evaluation and treatment provided.Attachments: 12:25 [facility] Payment Agreement lg 14:39 T-Sheet-- Draft Copy gb Chart Complete MTDD
== END 2016-06-04 13:39 | disposition home or self-care (01) ==
LOC: M ED 11:19
DX: O9A.212 Injury, poisoning and certain other consequences of external causes complicating pregnancy, second trimester (principal); S63.91XD Sprain of unspecified part of right wrist and hand, subsequent encounter; X58.XXXD Exposure to other specified factors, subsequent encounter; Y92.410 Unspecified street and highway as the place of occurrence of the external cause; O99.342 Other mental disorders complicating pregnancy, second trimester; F20.9 Schizophrenia, unspecified; F90.9 Attention-deficit hyperactivity disorder, unspecified type; Z79.2 Long term (current) use of antibiotics; Z3A.24 24 weeks gestation of pregnancy; O99.332 Smoking (tobacco) complicating pregnancy, second trimester; F17.210 Nicotine dependence, cigarettes, uncomplicated; Z88.5 Allergy status to narcotic agent; Z88.8 Allergy status to other drugs, medicaments and biological substances

== ENCOUNTER → 2016-06-11 | Outpatient (REF) | payer MEDICARE, MEDICAID | LOC: M LAB REF 19:22 | PROVIDERS: ATTEND Physician Assistant | DX: R30.0 Dysuria (principal) ==

== ENCOUNTER → 2016-06-23 | Outpatient (CLI) | payer MEDICARE, MEDICAID ==
--- NOTE | 2016-06-23 09:43 | REP ---
Obstetric ultrasound for follow-up of anatomy. Prior study for anatomy dated 05/27/2016 did not adequately demonstrate the right ventricular cardiac outflow tract. The remainder of the anatomy previously was unremarkable. On the study today there is a single intrauterine gestation in a vertex presentation. There is movement and cardiac activity, the heart rate is 147 beats per minute. The placenta is posterior. There is no placenta previa or abruptio. Placenta is grade 1 maturity. Subjectively amniotic fluid volume is normal. The cervix measures 3.7 cm length. By today's ultrasound the gestational age is 25 weeks 1 day with an GEMA of 10/05/2016. Gestational age by the first ultrasound this gestation is 25 weeks 5 days. weight is 833 grams (1 pound, 13 ounces). This is the 40th percentile for 25 weeks 5 days. The cardiac right ventricular outflow tract is again not optimally demonstrated because of position and maternal body habitus. The remainder of the anatomy was previously evaluated and unremarkable. Impression: The cardiac right ventricular outflow tract is again unable to be satisfactorily demonstrated Signed by Jarrod Garg MD 06/23/2016 09:35 A
== END ==
LOC: M SMT 08:00
PROVIDERS: ATTEND Obstetrics & Gynecology
DX: Z34.02 Encounter for supervision of normal first pregnancy, second trimester (principal)

== ENCOUNTER → 2016-07-04 | Outpatient (CLI) | payer MEDICARE, MEDICAID ==
[~2016-07-04] MED LIST changes: +ALBU17IN INH; +LORA10TA2 PO; +MONT10TA2 PO; +OSEL75CA PO; +PRENTAB16 PO
[2016-07-04 14:05] LABS: MEAN CORPUSCULAR HEMOGLOBIN 32.4 pg (27.0-33.0); MEAN CORPUSCULAR VOLUME 95.1 fl (80.0-96.0); RED CELL DISTRIBUTION WIDTH 12.7 % (11.5-14.5); WHITE BLOOD COUNT 15.3 K/mm3 (4.0-10.0)
== END ==
LOC: M SMT 10:14
PROVIDERS: ATTEND Obstetrics & Gynecology
DX: Z34.02 Encounter for supervision of normal first pregnancy, second trimester (principal)

== ENCOUNTER 2016-07-06 16:07 | Inpatient (IN) | payer MEDICARE, MEDICAID ==
[~2016-07-06] VITALS: Ht 180.3 cm; Wt 124.7 kg
[~2016-07-06 16:07] MED LIST changes: -ALBU17IN INH; -LORA10TA2 PO; -MONT10TA2 PO; -OSEL75CA PO; -PRENTAB16 PO
[2016-07-06] MEDS ORDERED: IPRATROPIUM 0.5MG/ALBUTEROL 2.5MG INH SOL UD 3ML (DUONEB)(J7620) As Ordered ONE (16:33)
[2016-07-06 17:02] LABS: BASO % 0.1 % (0.0-1.0); EOS # 0.1 K/mm3 (0.0-0.50); EOS % 0.5 % (0.0-3.0); LARGE UNSTAINED CELL # 0.1 K/mm3 (0.0-0.4); LARGE UNSTAINED CELL % 0.9 % (0.0-4.0); LYMPH # 0.6 K/mm3 (1.5-6.5); LYMPH % 3.8 % (24.0-44.0); MEAN CORPUSCULAR HEMOGLOBIN 31.7 pg (27.0-33.0); MEAN CORPUSCULAR HGB CONC 34.2 g/dl (32.0-36.5); MEAN CORPUSCULAR VOLUME 92.6 fl (80.0-96.0); MONO # 0.9 K/mm3 (0.0-0.8); MONO % 7.8 % (0.0-5.0); NEUTROPHILS # 10.5 K/mm3 (1.8-7.7); PLATELET COUNT, AUTOMATED 273 k/mm3 (150-450); RED CELL DISTRIBUTION WIDTH 12.6 % (11.5-14.5); WHITE BLOOD COUNT 12.1 K/mm3 (4.0-10.0)
[2016-07-06 17:27] LABS: ANION GAP 12 MEQ/L (8-16); BLOOD UREA NITROGEN 9 MG/DL (7-18); CALCIUM LEVEL 9.4 MG/DL (8.5-10.1); CARBON DIOXIDE LEVEL 20 MEQ/L (21-32); CHLORIDE LEVEL 107 MEQ/L (98-107); CREATININE FOR GFR 0.56 MG/DL (0.55-1.02); GLOMERULAR FILTRATION RATE > 60.0 (>60); GLUCOSE, FASTING 79 MG/DL (70-105); POTASSIUM SERUM 3.6 MEQ/L (3.5-5.1); SODIUM LEVEL 139 MEQ/L (136-145)
[2016-07-06] MEDS ORDERED: guaiFENesin DM LIQ 10ML UD As Ordered ONE (18:05)
[2016-07-06] MEDS ORDERED: ACETAMINOPHEN 325 MG TAB As Ordered ONE (19:08)
[2016-07-06] MEDS ORDERED: ALBU17IN INH (19:09)
[2016-07-06] MEDS ORDERED: OSEL75CA PO (19:09)
[2016-07-06] MEDS ORDERED: PRENTAB16 PO (19:09)
[2016-07-06] MEDS ORDERED: LORA10TA2 PO (19:11)
[2016-07-06] MEDS ORDERED: MONT10TA2 PO (19:11)
[2016-07-06 19:14] LABS: ALBUMIN 3.1 GM/DL (3.2-5.2); ALBUMIN/GLOBULIN RATIO 0.78 (1.00-1.93); ALKALINE PHOSPHATASE 99 U/L (45-117); ALT/SGPT 26 U/L (12-78); AST/SGOT 55 U/L (15-37); BILIRUBIN,DIRECT < 0.1 MG/DL (0.0-0.2); BILIRUBIN,TOTAL 0.3 MG/DL (0.2-1.0); TOTAL PROTEIN 7.1 GM/DL (6.4-8.2)
[2016-07-06] MEDS ORDERED: ONDANSETRON 4MG/2ML VIAL (J2405) IV PRN (19:30)
[2016-07-06] MEDS ORDERED: LEVALBUTEROL 1.25 MG/0.5 ML CONCENTRATE NEB INH PRN (19:30)
[2016-07-06] MEDS ORDERED: IPRATROPIUM 0.02% SOLN 0.5MG/2.5 ML NEB INH PRN (19:30)
[2016-07-06 19:40] LABS: T UPTAKE 22 % (30-39); THYROXINE (T4) 11.6 UG/DL (4.5-12.0)
[2016-07-06 19:44] LABS: ABG BASE EXCESS -5.4 (-2.0-2.0); ABG DEVICE NASAL CANN; ABG HCO3 16.8 MEQ/L (22.0-26.0); ABG PARTIAL PRESSURE CO2 23.7 mmHg (35.0-45.0); ABG PARTIAL PRESSURE O2 74.5 mmHg (75.0-100.0); ABG TOTAL CO2 17.5 MEQ/L (22.0-29.0); ABG pH (ARTERIAL) 7.468 UNITS (7.350-7.450)
[2016-07-06] MEDS: IPRATROPIUM 0.02% SOLN 0.5MG/2.5 ML NEB INH SCH (20:00)
[2016-07-06] MEDS: LEVALBUTEROL 1.25 MG/0.5 ML CONCENTRATE NEB INH SCH (20:00)
[2016-07-06] MEDS ORDERED: NS 1,000 ML IV SCH (20:00)
--- NOTE | 2016-07-06 20:37 | REP ---
CHEST X-RAY, PA: 07/06/2016. Comparison: Portable chest 04/07/2016, two-view chest 02/01/2015. Clinical history: Dyspnea. 28 weeks . Single view requested. Study shows the lungs adequately inflated. Some minor patchy basilar atelectasis or early infiltrates infrahilar right medial base and lingula. No effusion or dense consolidation with air bronchograms. The heart, mediastinal and hilar contours are normal. Airway intact. No free air. Bones intact. Impression: 1. Minor right infrahilar patchy infiltrate or atelectasis with subtle lingular patchy densities as well. No air bronchograms with dense consolidation nor effusion. Signed by Fortunato Lincoln MD 07/07/2016 12:47 P
[2016-07-06 20:40] VITALS: BP 142/63
--- NOTE | 2016-07-06 21:12 | EDDOCDS ---
Nurse's Notes [facility] Name: Sangita Bartlett Age: 26 yrs Sex: Female : 1990 Arrival Date: 07/06/2016 Time: 16:07 Bed 13 Private MD: Genie Sylvester M. Diagnosis: Influenza due to other identified influenza virus;Asthma Presentation: 07/06 16:11 Presenting complaint: Patient states: Went to , diagnosed with flu. Unable to ck1 tolerate food, fluids, reports nausea and vomiting after taking one dose of Tamiflu. Patient is 28 weeks . Adult Sepsis Screening: The patient does not have new or worsening altered mentation. Patient's respiratory rate is less than 22. Systolic blood pressure is greater than 100. Patient has a qSOFA score of 0- Negative Sepsis Screen. Suicide/Homicide risk assessment- the patient denies having any suicidal and/or homicidal ideations and does not present with any other emotional, behavioral or mental health complaints. Status: Patient is not a automotive service consultant or dependent. Transition of care: patient was not received from another setting of care. 16:11 Method Of Arrival: Walkin/Carried/Asstd ck1 16:11 Acuity: MALENA Level 3 ck1 Triage Assessment: 16:14 General: Appears in no apparent distress, comfortable, Behavior is appropriate for age, ck1 cooperative. Pain: Location: back Pain currently is 5 out of 10 on a pain scale. HIV screening NA for this visit Offered previously. Neurological: Level of Consciousness is awake, alert, obeys commands, Oriented to person, place, time. Respiratory: Respiratory effort is unlabored, Respiratory pattern is regular, symmetrical. GI: Reports nausea, vomiting. Derm: Skin is pink, warm & dry. 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 Albuterol Inhl as needed 2. albuterol sulfate 90 mcg/actuation Inhl aepb as needed 3. Oral once daily 4. Tamiflu 75 mg Oral cap 2 times per day - PMHx: ADHD; Schizophrenia; Asthma; - PSHx: Tonsillectomy; Appendectomy; Exploratory lap; - Social history: Smoking status: Patient uses tobacco products, light tobacco smoker. No barriers to communication noted, The patient speaks fluent Samoan, Speaks appropriately for age. - Family history: No immediate family members are acutely ill. - : The pt / caregiver states he / she is not on anticoagulants. Home medication list is obtained from the patient. - Exposure Risk Screening:: None identified. Screenin:57 Screening information is obtained from the patient. Fall risk: No risks identified. ja5 Assistance ADL's: requires no assistance with activities of daily living. Abuse/DV Screen: The patient / caregiver reports he/she is: not in a situation that causes fear, pain or injury. Nutritional screening: On no prescribed diet. Advance Directives: Currently, there is no health care proxy. There is no active DNR order. There is no living will. 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 home support is adequate. Assessment: 16:55 General: Appears uncomfortable, Behavior is appropriate for age, cooperative. Pain: ja5 Location: back and bilateral lateral abdomen Pain currently is 5 out of 10 on a pain scale. Neurological: Level of Consciousness is awake, alert, Oriented to person, place, time. Cardiovascular: Capillary refill < 3 seconds Heart tones S1 S2 present. Respiratory: Airway is patent Respiratory effort is even, unlabored, Breath sounds are clear bilaterally. GI: Bowel sounds present X 4 quads. Reports nausea. Derm: Skin is pink, warm & dry. 19:18 General: Appears uncomfortable, Behavior is cooperative. Neurological: Level of mv5 Consciousness is awake, alert, Oriented to person, place, time. Cardiovascular: Capillary refill < 3 seconds. Respiratory: Airway is patent Respiratory effort is even, unlabored. Derm: Skin is pink, warm & dry. 20:04 General: Hospitalist in to assess pt.. mv5 20:20 General: Appears uncomfortable, Behavior is cooperative, Pt ambulated to restroom mv5 independently with steady gait. Unable to collect urine sample at this time.. Neurological: No deficits noted. Cardiovascular: Rhythm is sinus tachycardia No ectopy. Respiratory: Airway is patent Respiratory effort is even, unlabored, Occasional dry coughing spells. Breath sounds are clear bilaterally. Derm: Skin is pink, warm & dry. 21:08 General: Appears uncomfortable, Coughing.. Neurological: No deficits noted. mv5 Respiratory: Airway is patent Respiratory effort is even, unlabored. Derm: Skin is pink, warm & dry. Vital Signs: 16:09 BP 153 / 81; Pulse 143; Resp 18 S; Temp 99.6(O); Pulse Ox 97% on R/A; Weight 124.74 kg gr2 (R); Height 5 ft. 11 in. (180.34 cm) (R); Pain 5/10; 18:15 Pulse 130; ja5 19:06 BP 123 / 64; Pulse 140; Resp 32; Temp 99.5(O); Pulse Ox 95% on R/A; Pain 6/10; ja5 20:17 BP 126 / 59 (auto/); mv5 20:19 Pulse 138 MON; Pulse Ox 96% ; mv5 20:30 BP 129 / 64 (auto/); mv5 20:31 BP 129 / 64; Pulse 136 MON; Resp 18; Temp 99.0(O); Pulse Ox 95% on R/A; mv5 21:05 Pulse 134 MON; Pulse Ox 93% ; mv5 16:09 Body Mass Index 38.35 (124.74 kg, 180.34 cm) gr2 Vitals: 16:09 Log In Time: July 06, 2016 at 16:09. gr2 17:14 Heart Tones 156BPM. ja5 ED Course: 16:09 Patient visited by Avelino Hendricks. gr2 16:09 Genie Sylvester is Private Physician. gr2 16:09 Patient moved to Waiting gr2 16:10 Patient visited by Avelino Hendricks. gr2 16:11 Patient moved to Pre RCE gr2 16:12 Triage Initiated ck1 16:19 Patient moved to Triage 3 mcp 16:21 Erika Mccartney,TRISH is Primary Nurse. mcp 16:21 Daniela Calderon MD is Attending Physician. sd1 16:21 Patient visited by Daniela Calderon MD. sd1 16:21 Patient moved to 13 mcp 16:58 MED Profile Sent. ja5 16:58 CBC with Diff Sent. ja5 16:58 Lactic Acid (Aguirre tube on ice) Sent. ja5 16:59 Patient visited by Erika Mccartney,TRISH. ja5 17:09 Dorothy Coombs RN is Primary Nurse. jc4 18:07 Patient visited by Erika Mccartney,TRISH. ja5 18:17 [facility] Payment Agreement was scanned into [employer] and attached to record. zo 19:03 Primary Nurse role handed off by Dorothy Coombs RN jc4 19:03 Primary Nurse role handed off by Erika Mccartney,TRISH jc4 19:06 Myranda Goodson,RN is Primary Nurse. mv5 19:06 Patient visited by Erika Mccartney,TRISH. ja5 19:17 Patient visited by Gurdeep Collier PCA. jmv 19:17 Nilda Medrano is Hospitalizing Provider. sd1 19:17 EKG done. (by ED staff). Reviewed by Daniela Calderon MD. jmv 19:26 -Arterial Blood Gas Sent. dk 21:09 The patient / caregiver is instructed regarding the plan of care and ED course. mv5 21:09 Inserted saline lock: 18 gauge in right antecubital area and blood collected. No mv5 procedures done that require assistance. Administered Medications: 16:25 Drug: Albuterol-Ipratropium 3 ml [ipratropium-albuterol 0.5 mg-3 mg(2.5 mg base)/3 mL ac1 nebulization soln (3 mL)] Route: Inhalation; 16:31 Follow up: bs coarse bilat before and after tx. ac1 16:48 Drug: NS 0.9% 1000 ml [sodium chloride 0.9 % intravenous solution] Route: IV; Rate: ja5 bolus; Site: right antecubital; 18:15 Follow up: Pulse 130 bpm; IV Status: Completed infusion ja5 18:12 Drug: Dextromethorphan-Guaifenesin 5 ml [dextromethorphan-guaifenesin 10 mg-100 mg/5 mL ja5 oral liquid (5 mL)] Route: PO; 19:41 Follow up: Response: No Adverse Reaction mv5 18:15 Drug: NS 0.9% 1000 ml [sodium chloride 0.9 % intravenous solution] Route: IV; Rate: ja5 bolus; Site: right antecubital; 19:17 Drug: Acetaminophen 650 mg [acetaminophen 325 mg tablet (2 tabs)] Route: PO; mv5 19:41 Follow up: Response: No Adverse Reaction mv5 Intake: RT: 19:26 ABG's drawn from right radial artery allens test done and positive pressure held for 5 dk minutes no bleeding noted pressure bandage applied specimen sent pt. tolerated well. Order Results: Lab Order: MED Profile; SPEC'M 07/06/16 16:49 Test: GLUCOSE, FASTING; Value: 79; Range: 70-105; Units: MG/DL; Status: F Test: BLOOD UREA NITROGEN; Value: 9; Range: 7-18; Units: MG/DL; Status: F Test: CREATININE FOR GFR; Value: 0.56; Range: 0.55-1.02; Units: MG/DL; Status: F Test: GLOMERULAR FILTRATION RATE; Value: > 60.0; Range: >60; Status: F Test: SODIUM LEVEL; Value: 139; Range: 136-145; Units: MEQ/L; Status: F Test: POTASSIUM SERUM; Value: 3.6; Range: 3.5-5.1; Units: MEQ/L; Status: F Test: CHLORIDE LEVEL; Value: 107; Range: 98-107; Units: MEQ/L; Status: F Test: CARBON DIOXIDE LEVEL; Value: 20; Range: 21-32; Abnormal: Below low normal; Units: MEQ/L; Status: F Test: ANION GAP; Value: 12; Range: 8-16; Units: MEQ/L; Status: F Test: CALCIUM LEVEL; Value: 9.4; Range: 8.5-10.1; Units: MG/DL; Status: F Test Note: ; Units are mL/min/1.73 m2 Chronic Kidney Disease Staging per NKF: Stage I & II GFR >=60 Normal to Mildly Decreased Stage III GFR 30-59 Moderately Decreased Stage IV GFR 15-29 Severely Decreased Stage V GFR <15 Very Little GFR Left ESRD 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 Lab Order: CBC with Diff; SPEC'M 07/06/16 16:49 Test: WHITE BLOOD COUNT; Value: 12.1; Range: 4.0-10.0; Abnormal: Above high normal; Units: K/mm3; Status: F Test: RED BLOOD COUNT; Value: 3.67; Range: 4.00-5.40; Abnormal: Below low normal; Units: M/mm3; Status: F Test: HEMOGLOBIN; Value: 11.6; Range: 12.0-16.0; Abnormal: Below low normal; Units: g/dl; Status: F Test: HEMATOCRIT; Value: 34.0; Range: 36.0-47.0; Abnormal: Below low normal; Units: %; Status: F Test: MEAN CORPUSCULAR VOLUME; Value: 92.6; Range: 80.0-96.0; Units: fl; Status: F Test: MEAN CORPUSCULAR HEMOGLOBIN; Value: 31.7; Range: 27.0-33.0; Units: pg; Status: F Test: MEAN CORPUSCULAR HGB CONC; Value: 34.2; Range: 32.0-36.5; Units: g/dl; Status: F Test: RED CELL DISTRIBUTION WIDTH; Value: 12.6; Range: 11.5-14.5; Units: %; Status: F Test: PLATELET COUNT, AUTOMATED; Value: 273; Range: 150-450; Units: k/mm3; Status: F Test: NEUTROPHILS %; Value: 87.0; Range: 36.0-66.0; Abnormal: Above high normal; Units: %; Status: F Test: LYMPH %; Value: 3.8; Range: 24.0-44.0; Abnormal: Below low normal; Units: %; Status: F Test: MONO %; Value: 7.8; Range: 0.0-5.0; Abnormal: Above high normal; Units: %; Status: F Test: EOS %; Value: 0.5; Range: 0.0-3.0; Units: %; Status: F Test: BASO %; Value: 0.1; Range: 0.0-1.0; Units: %; Status: F Test: LARGE UNSTAINED CELL %; Value: 0.9; Range: 0.0-4.0; Units: %; Status: F Test: NEUTROPHILS #; Value: 10.5; Range: 1.8-7.7; Abnormal: Above high normal; Units: K/mm3; Status: F Test: LYMPH #; Value: 0.6; Range: 1.5-6.5; Abnormal: Below low normal; Units: K/mm3; Status: F Test: MONO #; Value: 0.9; Range: 0.0-0.8; Abnormal: Above high normal; Units: K/mm3; Status: F Test: EOS #; Value: 0.1; Range: 0.0-0.50; Units: K/mm3; Status: F Test: BASO #; Value: 0.0; Range: 0.0-0.2; Units: K/mm3; Status: F Test: LARGE UNSTAINED CELL #; Value: 0.1; Range: 0.0-0.4; Units: K/mm3; Status: F Lab Order: Lactic Acid (Aguirre tube on ice); [facility] 07/06/16 16:49 Test: LACTIC ACID SEPSIS PROTOCOL; Value: 0.9; Range: 0.4-2.0; Units: MMOL/L; Status: F Lab Order: LIVER PROFILE; [facility] 07/06/16 16:49 Test: AST/SGOT; Value: 55; Range: 15-37; Abnormal: Above high normal; Units: U/L; Status: F Test: ALT/SGPT; Value: 26; Range: 12-78; Units: U/L; Status: F Test: ALKALINE PHOSPHATASE; Value: 99; Range: 45-117; Units: U/L; Status: F Test: BILIRUBIN,TOTAL; Value: 0.3; Range: 0.2-1.0; Units: MG/DL; Status: F Test: BILIRUBIN,DIRECT; Value: < 0.1; Range: 0.0-0.2; Units: MG/DL; Status: F Test: TOTAL PROTEIN; Value: 7.1; Range: 6.4-8.2; Units: GM/DL; Status: F Test: ALBUMIN; Value: 3.1; Range: 3.2-5.2; Abnormal: Below low normal; Units: GM/DL; Status: F Test: ALBUMIN/GLOBULIN RATIO; Value: 0.78; Range: 1.00-1.93; Abnormal: Below low normal; Status: F Lab Order: -Arterial Blood Gas; [facility] 07/06/16 19:24 Test: ABG pH (ARTERIAL); Value: 7.468; Range: 7.350-7.450; Abnormal: Above high normal; Units: UNITS; Status: F Test: ABG PARTIAL PRESSURE CO2; Value: 23.7; Range: 35.0-45.0; Abnormal: Below low normal; Units: mmHg; Status: F Test: ABG PARTIAL PRESSURE O2; Value: 74.5; Range: 75.0-100.0; Abnormal: Below low normal; Units: mmHg; Status: F Test: ABG TOTAL CO2; Value: 17.5; Range: 22.0-29.0; Abnormal: Below low normal; Units: MEQ/L; Status: F Test: ABG HCO3; Value: 16.8; Range: 22.0-26.0; Abnormal: Below low normal; Units: MEQ/L; Status: F Test: ABG BASE EXCESS; Value: -5.4; Range: -2.0-2.0; Abnormal: Below low normal; Status: F Test: ABG STANDARD HCO3; Value: 20.0; Range: 22.0-26.0; Abnormal: Below low normal; Units: MEQ/L; Status: F Test: ABG O2 SATURATION; Value: 95.0; Range: 95.0-99.0; Units: %; Status: F Test: ABG DEVICE; Value: NASAL ALLI; Status: F Lab Order: THYROID PROFILE; SPEC'M 07/06/16 16:49 Test: T UPTAKE; Value: 22; Range: 30-39; Abnormal: Below low normal; Units: %; Status: F Test: THYROXINE (T4); Value: 11.6; Range: 4.5-12.0; Units: UG/DL; Status: F Test: FREE THYROXINE INDEX; Value: 2.6; Range: 1.3-4.8; Units: %; Status: F Test: THYROID STIMULATING HORMONE; Value: 0.907; Range: 0.358-3.740; Units: uIU/ML; Status: F Outcome: 19:18 Decision to Hospitalize by Provider. sd1 21:09 Discharge Assessment: Patient awake, alert and oriented x 3. No cognitive and/or mv5 functional deficits noted. Patient verbalized understanding of disposition instructions. patient administered narcotics - no. The following High Risk Discharge criteria are identified: None. Admitted to PCU. Condition: stable. No special radiology studies were completed. Property :Personal belongings accompany Pt. 21:11 Patient left the ED. mv5 Signatures: Daniela Calderon MD MD sd1 Vivi Livingston RN RN mcp Cowles, Amy,RT RT ac1 Flory Gallegos RN RN samir1 Elizabeth Henriquez,RT RT Maddy Lord Jennifer, TRISH RN jc4 Avelino Hendricks gr2 Gurdeep Collier, LIEUTENANT/DEPUTY LIEUTENANT/DEPUTY Erika MorenoRN RN ja5 Myranda Goodson,RN RN mv5 Corrections: (The following items were deleted from the chart) 16:15 16:11 Presenting complaint: Patient states: Went to UC, diagnosed with flu. Unable to ck1 tolerate food, fluids, reports nausea and vomiting after taking one dose of Tamiflu ck1 16:15 16:11 Acuity: MALENA Level 4 ck1 ck1 MTDD
--- NOTE | 2016-07-06 21:12 | EDDOCDS ---
Physician Documentation [facility] Name: Sangita Bartlett Age: 26 yrs Sex: Female : 1990 Arrival Date: 07/06/2016 Time: 16:07 Bed 13 Private MD: Genie Sylvester M. Disposition: 07/06/16 19:18 Hospitalization ordered by Nilda Medrano for Inpatient Admission. Preliminary diagnosis are Influenza due to other identified influenza virus, Asthma. - Bed requested for PCU. - Status is Inpatient Admission. mv5 - Condition is Stable. - Problem is an acute exacerbation. - Symptoms have improved. Historical: - Allergies: GABAPENTIN (Hives); Percocet (Vomit); - Home Meds: 1. Albuterol Inhl as needed 2. albuterol sulfate 90 mcg/actuation Inhl aepb as needed 3. Oral once daily 4. Tamiflu 75 mg Oral cap 2 times per day - PMHx: ADHD; Schizophrenia; Asthma; - PSHx: Tonsillectomy; Appendectomy; Exploratory lap; - Social history: Smoking status: Patient uses tobacco products, light tobacco smoker. No barriers to communication noted, The patient speaks fluent Canadian, Speaks appropriately for age. - Family history: No immediate family members are acutely ill. - : The pt / caregiver states he / she is not on anticoagulants. Home medication list is obtained from the patient. - Exposure Risk Screening:: None identified. 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 11 in. (180.34 cm) (R); Pain 5/10; 18:15 Pulse 130; ja5 19:06 BP 123 / 64; Pulse 140; Resp 32; Temp 99.5(O); Pulse Ox 95% on R/A; Pain 6/10; ja5 20:17 BP 126 / 59 (auto/); mv5 20:19 Pulse 138 MON; Pulse Ox 96% ; mv5 20:30 BP 129 / 64 (auto/); mv5 20:31 BP 129 / 64; Pulse 136 MON; Resp 18; Temp 99.0(O); Pulse Ox 95% on R/A; mv5 21:05 Pulse 134 MON; Pulse Ox 93% ; mv5 16:09 Body Mass Index 38.35 (124.74 kg, 180.34 cm) gr2 MDM: 16:24 NS 0.9% 1000 ml IV at bolus once ordered. sd1 16:24 NS 0.9% 1000 ml IV at bolus once ordered. sd1 16:24 IV Saline Lock ordered. sd1 16:24 Heart Tones ordered. sd1 16:25 Albuterol-Ipratropium 3 ml Inhalation once ordered. sd1 16:25 Call Respiratory ordered. sd1 16:25 MED Profile Ordered. EDMS 16:25 CBC with Diff Ordered. EDMS 16:25 Lactic Acid (Aguirre tube on ice) Ordered. EDMS 16:26 Call Respiratory complete. jc4 17:12 Financial registration complete. zo 17:34 MED Profile Reviewed. sd1 17:34 CBC with Diff Reviewed. sd1 17:35 CLEAR LIQUID+DIET ordered. EDMS 17:35 Lactic Acid (Aguirre tube on ice) Reviewed. sd1 17:53 Dextromethorphan-Guaifenesin Liquid 10 mg-100 mg/5 mL 5 ml PO once ordered. sd1 18:17 [facility] Payment Agreement was scanned into [employer] and attached to record. zo 18:31 ECG WITH READING ER PHYS+CARDIAG ordered. EDMS 18:46 Chest, 1 View Ordered. EDMS 18:48 Misc Tiler'S Assistant Order ordered. sd1 18:51 BED REQUEST+ADM ordered. EDMS 18:51 Misc Tiler'S Assistant Order complete. lbd 18:54 RESPIRATORY PANEL Ordered. EDMS 18:55 UA Ordered. EDMS 18:59 LIVER PROFILE Ordered. EDMS 19:04 Acetaminophen Tablet 650 mg PO once ordered. sd1 19:06 MED Profile Reviewed. sd1 19:07 Call Respiratory ordered. sd1 19:08 -Arterial Blood Gas Ordered. EDMS 19:12 THYROID PROFILE Ordered. EDMS 19:23 Admission / Observation Status ordered. EDMS 19:23 REGULAR DIET ordered. EDMS 19:31 BASIC METABOLIC PROFILE Ordered. EDMS 19:31 CBC WITH DIFFERENTIAL Ordered. EDMS 19:54 Call Respiratory complete. kb5 Administered Medications: 16:25 Drug: Albuterol-Ipratropium 3 ml [ipratropium-albuterol 0.5 mg-3 mg(2.5 mg base)/3 mL ac1 nebulization soln (3 mL)] Route: Inhalation; 16:31 Follow up: bs coarse bilat before and after tx. ac1 16:48 Drug: NS 0.9% 1000 ml [sodium chloride 0.9 % intravenous solution] Route: IV; Rate: ja5 bolus; Site: right antecubital; 18:15 Follow up: Pulse 130 bpm; IV Status: Completed infusion ja5 18:12 Drug: Dextromethorphan-Guaifenesin 5 ml [dextromethorphan-guaifenesin 10 mg-100 mg/5 mL ja5 oral liquid (5 mL)] Route: PO; 19:41 Follow up: Response: No Adverse Reaction mv5 18:15 Drug: NS 0.9% 1000 ml [sodium chloride 0.9 % intravenous solution] Route: IV; Rate: ja5 bolus; Site: right antecubital; 19:17 Drug: Acetaminophen 650 mg [acetaminophen 325 mg tablet (2 tabs)] Route: PO; mv5 19:41 Follow up: Response: No Adverse Reaction mv5 Signatures: Dispatcher [employer] EDMS Daniela Calderon MD MD sdPrincess Matute, Property Insurance Agent [facility] Flory Gallegos RN RN ck1 Maddy Murillo Kristopher, STUDENT OUTREACH COORDINATOR STUDENT OUTREACH COORDINATOR kb5 Dorothy Coombs RN RN jc4 Myranda Goodson RN RN mv5 Cristina Curiel RT ac1 Erika Mccartney RN ja5 The chart was reviewed and I authenticate all verbal orders and agree with the evaluation and treatment provided.Corrections: (The following items were deleted from the chart) 18:58 18:55 LIVER PROFILE+LAB ordered. EDMS EDMS 19:13 19:08 THYROID PROFILE+LAB ordered. EDMS EDMS Attachments: 18:17 [facility] Payment Agreement zo MTDD
[2016-07-06] MEDS: OSELTAMIVIR PHOSPHATE 75 MG CAP (TAMIFLU) PO SCH (22:26)
[2016-07-06] MEDS ORDERED: DEXTROMETHORPHAN 5 ML SYRUP (ROBITUSSIN PEDIATRIC COUGH) PO PRN ×2 (23:00→23:15)
[2016-07-06] MEDS: guaiFENesin DM LIQ 10ML UD PO PRN (23:38)
[2016-07-06 23:59] VITALS: BP 138/62
[2016-07-07] MEDS: IPRATROPIUM 0.02% SOLN 0.5MG/2.5 ML NEB INH SCH ×4 (00:17→10:55)
[2016-07-07] MEDS: LEVALBUTEROL 1.25 MG/0.5 ML CONCENTRATE NEB INH SCH ×4 (00:17→10:55)
[2016-07-07] MEDS ORDERED: ACETAMINOPHEN TAB 650MG DOSE (2X325MG) PO PRN (00:30)
--- NOTE | 2016-07-07 03:36 | HPE ---
DATE OF ADMISSION: 07/06/2016 PRIMARY CARE PROVIDER: Genie Sylvester. ATTENDING PHYSICIAN: Nilda Medrano MD. CHIEF COMPLAINT: Flu, cough, nausea and vomiting. HISTORY OF PRESENT ILLNESS: This is a 26-year-old female with a past medical history of asthma, schizophrenia, and attention deficit hyperactivity disorder (ADHD), who presents to the emergency department complaining of recent flu diagnosis. She is currently 28 weeks , sees Dr. Dhruv Ordaz for obstetrics/gynecology ([facility]). She reports that her symptoms started yesterday in the morning with a dry cough. She also admits to having fevers, sweats, nausea and had some body aches in her sides and legs. Today, she presented to an urgent care where she was diagnosed with the flu. She has not been able to tolerate food or fluids today. She was given Tamiflu at the urgent care. The patient took the Tamiflu earlier today, and vomited afterwards, she did see the pills come out. She also has had diarrhea for the last 2 days, with a total of 5-6 bowel movements. Of note, she does report having a history of paroxysmal tachycardia, which was diagnosed last year. She saw cardiology and had a 1 week Holter monitor. She said that she was diagnosed with supraventricular tachycardia (SVT). She also has a past medical history of asthma. She typically uses her albuterol inhaler two times a week at most. In the last several days she has been using it more often because of the worsening symptoms. During her course of , she was started on labetalol because of her tachycardia. She reported having body aches on the medication, and discontinued its use. She wishes not to continue on the medication. She denies having hypertension. PAST MEDICAL HISTORY: 1. ADHD. 2. Schizophrenia. 3. Asthma. PAST SURGICAL HISTORY: 1. Tonsillectomy. 2. Appendectomy. 3. Exploratory laparotomy. 4. Breast sebaceous cyst removal. GYNECOLOGICAL HISTORY: Reportedly uncomplicated. (G) 1, para (P) 0. Her due date is 09/28/2016. She is currently at 28 weeks . SOCIAL HISTORY: Patient is a smoker. Has not smoked in the last week. Typically smokes about 5-6 cigarettes a day. She has been doing this since the age of 17. Denies any alcohol or illicit drug use. She currently lives with her boyfriend and another friend. She has one poodle and two cats. Recent contact with a sick friend. That friend has unknown status of the flu. HOME MEDICATIONS: - albuterol inhaler as needed - vitamins daily - Tamiflu 75 mg twice a day FAMILY HISTORY: Mother has diabetes. Sister has history of asthma. No other respiratory diseases. ALLERGIES: GABAPENTIN, PERCOCET. REVIEW OF SYSTEMS: CONSTITUTIONAL SYMPTOMS: Positive for sweats, fevers. HEENT: Denies headaches, visual changes, nasal congestion. CARDIOVASCULAR: Denies chest pain, shortness of breath, palpitations. Admits to history of SVT. RESPIRATORY: Positive for dry cough. Denies dyspnea, shortness of breath. GASTROINTESTINAL: Denies abdominal pain, constipation, hematemesis, hematochezia, melena. Admits to diarrhea, nausea, vomiting. GENITOURINARY: Denies dysuria, blood in the urine. MUSCULOSKELETAL: Admits to pains in the sides and legs. Denies any joint swelling, edema. INTEGUMENTARY: Denies any rashes, no changes in skin color. NEUROLOGICAL: Denies any sensory loss, numbness, tingling. PSYCHIATRIC: Admits to history of schizophrenia and ADHD. Denies any depression, anxiety. ENDOCRINE: Denies any polyuria, polydipsia. HEMATOLOGIC: No abnormal bleeding or bruising. PHYSICAL EXAMINATION: VITAL SIGNS: Blood pressure 123/64, pulse is 140, respirations 32, temperature is 99.5, oxygen saturation is 95% on room air. heart rate is 156. Weight is 124 kg. Height is 180.34 cm. GENERAL: The patient is in no acute distress. She is calm and cooperative. HEENT: Head is normocephalic, atraumatic. Extraocular movements are intact bilaterally. Her pupils are equally round and reactive to light and accommodation. Her throat is nonerythematous, no exudates. Her mucous membranes are moist. Her tympanic membranes are mead and flat bilaterally. No lymphadenopathy appreciated in the neck. CARDIOVASCULAR: Tachycardic. Regular rhythm. No murmurs appreciated. RESPIRATORY: Clear to auscultation bilaterally. She has good breath sounds at the moment. No wheezes appreciated. ABDOMEN: It is soft, nontender, nondistended. Normoactive bowel sounds are heard throughout. EXTREMITIES: +2 pulses radial, pedal. No edema in the lower extremities. NEUROLOGIC: No sensory deficits throughout. SKIN: Warm, dry, pink. PSYCHIATRIC: She is alert and oriented to person, place, time and situation. She is calm and cooperative. LABORATORY STUDIES: Fasting glucose 79, BUN 9, creatinine 0.56, sodium 139, potassium 3.6, chloride 107. WBCs 12.1, RBCs 3.67, hemoglobin 11.6, hematocrit 34.0, platelet count 273. Lactic acid 0.9. AST 55, ALT 26. IMAGING STUDIES: A portable chest x-ray was taken on 07/06/2016, which showed minor right infrahilar patchy infiltrate or atelectasis with subtle lingular patchy densities. No dense consolidation or effusions. ASSESSMENT AND PLAN: This is a 26-year-old, 28 weeks female with influenza, nausea and vomiting. At this time, we are admitting the patient to the medical unit for observation. She will be monitored on telemetry for her tachycardia. She has been started on intravenous (IV) fluids in the emergency department, and we will continue upstairs. For her cough, we will continue her on cough suppressant. She has a history of asthma, currently no wheezing, but we will continue her breathing treatment with Xopenex. We will start her on acetaminophen for her fevers. At this time, NST was negative, her heart rate is around 156. The patient was tested positive for influenza B in the emergency department. For the patient's nausea and vomiting, we will start her on Zofran. We will continue her on the Tamiflu for influenza infection. As for deep venous thrombosis (DVT) prophylaxis, we are giving her antiembolitic stockings, as the patient is we will not be giving her anticoagulants. The plan was discussed with the patient, and she was agreeable to the plan. She had no further concerns or questions. My preceptor for this patient encounter was Dr. Nilda Medrano. The preceptor was physically present in the building during the encounter and was fully available as needed. All aspects of the patient interview, examination, medical decision making process, and medical care plan development were reviewed and approved by the preceptor. The preceptor is aware and concurs with the plan as stated in the body of this note and will attest to such by his/her co-signature. DAVID
[2016-07-07 04:10] VITALS: BP 126/58
[2016-07-07 05:40] LABS: BASO % 0.1 % (0.0-1.0); EOS % 0.3 % (0.0-3.0); LARGE UNSTAINED CELL # 0.1 K/mm3 (0.0-0.4); LARGE UNSTAINED CELL % 1.1 % (0.0-4.0); LYMPH # 0.7 K/mm3 (1.5-6.5); LYMPH % 5.4 % (24.0-44.0); MEAN CORPUSCULAR HEMOGLOBIN 31.9 pg (27.0-33.0); MEAN CORPUSCULAR VOLUME 93.8 fl (80.0-96.0); MONO # 0.7 K/mm3 (0.0-0.8); MONO % 6.5 % (0.0-5.0); NEUTROPHILS # 9.6 K/mm3 (1.8-7.7); NEUTROPHILS % 86.5 % (36.0-66.0); PLATELET COUNT, AUTOMATED 238 k/mm3 (150-450); RED CELL DISTRIBUTION WIDTH 12.8 % (11.5-14.5); WHITE BLOOD COUNT 11.1 K/mm3 (4.0-10.0)
[2016-07-07 06:03] LABS: ANION GAP 12 MEQ/L (8-16); BLOOD UREA NITROGEN 6 MG/DL (7-18); CALCIUM LEVEL 8.4 MG/DL (8.5-10.1); CARBON DIOXIDE LEVEL 18 MEQ/L (21-32); CHLORIDE LEVEL 110 MEQ/L (98-107); CREATININE FOR GFR 0.45 MG/DL (0.55-1.02); GLOMERULAR FILTRATION RATE > 60.0 (>60); GLUCOSE, FASTING 89 MG/DL (70-105); POTASSIUM SERUM 3.5 MEQ/L (3.5-5.1); SODIUM LEVEL 140 MEQ/L (136-145)
[2016-07-07 08:00] VITALS: BP 136/58
[2016-07-07] MEDS: guaiFENesin DM LIQ 10ML UD PO PRN (09:43)
[2016-07-07] MEDS: OSELTAMIVIR PHOSPHATE 75 MG CAP (TAMIFLU) PO SCH (09:43)
[2016-07-07 12:00] VITALS: BP 146/69
--- NOTE | 2016-07-07 15:10 | DS.PDOC ---
Discharge Summary General Date of Admission Jul 06, 2016 at 19:17 Date of Discharge Jul 07, 2016 at 14:15 Discharge Summary PROCEDURES PERFORMED DURING STAY: None. COMPLICATIONS/CHIEF COMPLAINT: Influenza ADMISSION DIAGNOSES: 1. .Influenza positive 2. .Persistent Sinus Tachycardia 3. .Hx of SVT 4. 28 weeks gestation DISCHARGE DIAGNOSES: 1. .Influenza Positive 2. .Persistent Sinus Tachycardia 3. .Hx of SVT 4. 28 weeks of gestation HISTORY OF PRESENT ILLNESS: 26-year-old female with past medical history of asthma, schizophrenia, ADHD, and supraventricular tachycardia, who is currently 28 weeks presented to ER with a chief complaint of flu, cough, nausea with vomiting. The patient follows with Dr. Dhruv Ordaz of [facility]. The patient states that her symptoms started approximately 24 hours ago. She went to the urgent care center, where she was diagnosed with the flu. She did receive a prescription for Tamiflu at the urgent care center, but vomited after taking the medication. She subsequently presents to the ER for further evaluation and management. During the patient's stay here at the hospital, she received IV fluid hydration , and [id number] nebulizer therapy. This morning the patient states that she feels significantly better and she is ready to go home. However, upon monitoring the patient on telemetry, she was noted to be tachycardic with a heart rate persistently in the 120s (sinus tachycardia) at rest, and reaching as high as the 150s to 160s upon movement. The patient states that she has been having the symptoms since February of last year. 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 Apparently she notes, that no further treatment options were recommended to her. I expressed to her the need for us to further evaluate the etiology of her tachycardia here in the hospital. However, the patient has decided to sign out AGAINST MEDICAL ADVICE. I did explain to her the risks associated with making such a decision including , , demise, congestive heart failure, and syncopal episodes. The patient acknowledged the risks aforementioned. She notes that she will follow up with her primary care provider, and obtain a referral to follow-up with a cement boat and barge loader as an outpatient. In addition, I did explain to the patient the category C risk associated with taking Tamiflu. She acknowledges the risks that are adherent. DISCHARGE MEDICATIONS: Please see below. ALLERGIES: Please see below. PHYSICAL EXAMINATION ON DISCHARGE: VITAL SIGNS: Please see below. GENERAL: Awake, alert, oriented 4 HEENT: Normocephalic, atraumatic NECK: No JVD CARDIOVASCULAR EXAMINATION: Tachycardic, normal S1, S2 RESPIRATORY EXAMINATION: Clear to auscultation bilaterally ABDOMINAL EXAMINATION: Soft, nontender. Consistent with 28 weeks gestation EXTREMITIES: No swelling, no tenderness LABORATORY DATA: Please see below. IMAGING: CHEST X-RAY, PA: 07/06/2016. Comparison: Portable chest 04/07/2016, two-view chest 02/01/2015. Clinical history: Dyspnea. 28 weeks . Single view requested. Study shows the lungs adequately inflated. Some minor patchy basilar atelectasis or early infiltrates infrahilar right medial base and lingula. No effusion or dense consolidation with air bronchograms. The heart, mediastinal and hilar contours are normal. Airway intact. No free air. Bones intact. Impression: 1. Minor right infrahilar patchy infiltrate or atelectasis with subtle lingular patchy densities as well. No air bronchograms with dense consolidation nor effusion. VTE Prophylaxis ordered?: SCDs DISCHARGE CONDITION: Medical workup incomplete, patient with cardiac risk given her persistent tachycardia DISPOSITION: . Patient left AGAINST MEDICAL ADVICE ACTIVITY: . As tolerated DIET: . 2 g low sodium diet DISCHARGE PLAN AND INSTRUCTIONS: 1. . Advised patient to follow-up with her primary care physician as soon as possible, ideally within the next 3-5 days TIME SPENT ON DISCHARGE: Greater than 30 minutes. Vital Signs/I&Os Vital Signs Date Time Temp Pulse Resp B/P Pulse Ox O2 Delivery O2 Flow Rate FiO2 07/07/16 12:00 97.7 126 22 146/69 96 Room Air I&O- Last 24 Hours up to 6 AM 07/07/16 06:00 Intake Total 750 ml Output Total 150 ml Balance 600 ml Laboratory Data Labs 24H Laboratory Tests 2 07/06/16 16:49: Aspartate Amino Transf (AST/SGOT) 55H, Alanine Aminotransferase (ALT/SGPT) 26, Alkaline Phosphatase 99, Total Bilirubin 0.3, Direct Bilirubin < 0.1, Albumin 3.1L, Albumin/Globulin Ratio 0.78L, Anion Gap 12, White Blood Count 12.1H, Red Blood Count 3.67L, Hemoglobin 11.6L, Hematocrit 34.0L, Mean Corpuscular Volume 92.6, Mean Corpuscular Hemoglobin 31.7, Mean Corpuscular Hemoglobin Concent 34.2 , Red Cell Distribution Width 12.6, Platelet Count 273, Neutrophils (%) (Auto) 87.0H, Lymphocytes (%) (Auto) 3.8L, Monocytes (%) (Auto) 7.8H, Eosinophils (%) ( Auto) 0.5, Basophils (%) (Auto) 0.1, Neutrophils # (Auto) 10.5H, Lymphocytes # ( Auto) 0.6L, Monocytes # (Auto) 0.9H, Eosinophils # (Auto) 0.1, Basophils # (Auto ) 0.0, Calcium Level 9.4, Free Thyroxine Index 2.6, Glomerular Filtration Rate > 60.0, Lactic Acid (Sepsis) 0.9, Large Unclassified Cells # 0.1, Large Unclassified Cells % 0.9, Thyroid Stimulating Hormone (TSH) 0.907, Thyroxine (T4 ) 11.6, Total Protein 7.1, Triiodothyronine (T3) Uptake 22L 07/06/16 19:24: Arterial Blood pH 7.468H, Arterial Blood Partial Pressure CO2 23.7L, Arterial Blood Partial Pressure O2 74.5L, Arterial Blood Total CO2 17.5L, Arterial Blood HCO3 16.8L, Arterial Blood Base Excess -5.4L, Arterial Blood Oxygen Saturation 95.0, Blood Gas Bicarbonate Standard 20.0L, Oxygen Delivery Device NASAL ALLI 07/06/16 22:48: Urine Amorphous Sediment , Urine Appearance CLOUDYH, Urine Color ARNAV, Urine pH 5.0, Urine Specific [place] 1.029, Urine Protein 1+H, Urine Glucose (UA) NEGATIVE, Urine Ketones 2+H, Urine Urobilinogen 2.0H, Urine Bilirubin NEGATIVE, Urine Leukocyte Esterase 2+H, Urine Bacteria (Auto) 1+H, Urine Blood NEGATIVE, Urine Calcium Carbonate Cryst(Auto) , Urine Calcium Oxalate Cryst (Auto) , Urine Calcium Phosphate Robyn (Auto) , Urine Cellular Casts , Urine Cystine Crystals , Urine Granular Casts (Auto) , Urine Hyaline Casts (Auto) 0, Urine Leucine Crystals , Urine Mucus (Auto) SMALL, Urine Nitrite NEGATIVE, Urine Oval Fat Bodies (Auto) , Urine RBC (Auto) 7H, Urine Renal Epithelial Cells , Urine Sperm (Auto) , Urine Squamous Epithelial Cells 11, Urine Transitional Epithelial Cells , Urine Trichomonas (Auto) , Urine Triple Phosphate Cryst (Auto ) , Urine Tyrosine Crystals , Urine Uric Acid Crystals (Auto) , Urine WBC (Auto ) 11H, Urine Waxy Casts (Auto) , Urine Yeast-Like Cells (Auto) 07/07/16 05:13: Anion Gap 12, White Blood Count 11.1H, Red Blood Count 3.30L, Hemoglobin 10.5L, Hematocrit 31.0L, Mean Corpuscular Volume 93.8, Mean Corpuscular Hemoglobin 31.9 , Mean Corpuscular Hemoglobin Concent 34.0, Red Cell Distribution Width 12.8, Platelet Count 238, Neutrophils (%) (Auto) 86.5H, Lymphocytes (%) (Auto) 5.4L, Monocytes (%) (Auto) 6.5H, Eosinophils (%) (Auto) 0.3, Basophils (%) (Auto) 0.1 , Neutrophils # (Auto) 9.6H, Lymphocytes # (Auto) 0.7L, Monocytes # (Auto) 0.7, Eosinophils # (Auto) 0.0, Basophils # (Auto) 0.0, Calcium Level 8.4L, Glomerular Filtration Rate > 60.0, Large Unclassified Cells # 0.1, Large Unclassified Cells % 1.1, Blood Urea Nitrogen 6L, Creatinine 0.45L, Sodium Level 140, Potassium Level 3.5, Chloride Level 110H, Carbon Dioxide Level 18L CBC/BMP Laboratory Tests 07/06/16 16:49 Red Blood Count 3.67 L, Mean Corpuscular Volume 92.6, Mean Corpuscular Hemoglobin 31.7, Mean Corpuscular Hemoglobin Concent 34.2, Red Cell Distribution Width 12.6, Neutrophils (%) (Auto) 87.0 H, Lymphocytes (%) (Auto) 3.8 L, Monocytes (%) (Auto) 7.8 H, Eosinophils (%) (Auto) 0.5, Basophils (%) ( Auto) 0.1, Neutrophils # (Auto) 10.5 H, Lymphocytes # (Auto) 0.6 L, Monocytes # (Auto) 0.9 H, Eosinophils # (Auto) 0.1, Basophils # (Auto) 0.0 07/07/16 05:13 Red Blood Count 3.30 L, Mean Corpuscular Volume 93.8, Mean Corpuscular Hemoglobin 31.9, Mean Corpuscular Hemoglobin Concent 34.0, Red Cell Distribution Width 12.8, Neutrophils (%) (Auto) 86.5 H, Lymphocytes (%) (Auto) 5.4 L, Monocytes (%) (Auto) 6.5 H, Eosinophils (%) (Auto) 0.3, Basophils (%) ( Auto) 0.1, Neutrophils # (Auto) 9.6 H, Lymphocytes # (Auto) 0.7 L, Monocytes # ( Auto) 0.7, Eosinophils # (Auto) 0.0, Basophils # (Auto) 0.0, Calcium Level 8.4 L Microbiology Microbiology 07/06/16 Respiratory Virus Panel (PCR) (EMA) - Final, Complete Influenza B Medications Scheduled Montelukast Sodium (Montelukast Sodium) 10 Mg Tab 10 MG PO DAILY Multivitamins/ ( Complete 14-0.4 mg) 1 Tab Tab 1 TAB PO DAILY Oseltamivir Phosphate (Tamiflu) 75 Mg Cap 75 MG PO BID Scheduled PRN Albuterol Sulfate (Ventolin Hfa) 200 Puff/8 Gm Aers 2 PUFF INH QID PRN PRN SHORTNESS OF BREATH Loratadine (Loratadine) 10 Mg Tab 10 MG PO DAILY PRN PRN ALLERGIES Allergies Coded Allergies: No Known Drug Allergy (Verified Allergy, Unknown, 08/14/12) ALEKSANDR JONES MD Jul 07, 2016 15:10
--- NOTE | 2016-07-08 15:04 | ECGEPIP ---
Stationary ECG Study [facility] - ED Test Date: 2016-07-06 Pat Name: SIMONE HIGGINS Department: Room: [place] [address] Gender: F Mysql Developer: neeraj : 1990 Requested By: Daniela Calderon Order Number: [id number] Reading MD: Daniela Calderon Measurements Intervals [place] Rate: 126 P: 45 UT: 104 QRS: 52 QRSD: 94 T: -27 QT: 335 QTc: 486 Interpretive Statements SINUS TACHYCARDIA WITH SHORT UT INTERVAL NONSPECIFIC ST & T-WAVE ABNORMALITY INCREASED RATE 04/06/16 Electronically Signed On 07-08-2016 15:04:52 EST by Daniela Calderon
--- NOTE | 2016-07-08 22:12 | EDDOCDS ---
Physician Documentation [facility] Name: Sangita Bartlett Age: 26 yrs Sex: Female : 1990 Arrival Date: 07/06/2016 Time: 16:07 Bed 13 Private MD: Genie Sylvester M. Disposition: 07/06/16 19:18 Hospitalization ordered by Nilda Medrano for Inpatient Admission. Preliminary diagnosis are Influenza due to other identified influenza virus, Asthma. - Bed requested for PCU. - Status is Inpatient Admission. mv5 - Condition is Stable. - Problem is an acute exacerbation. - Symptoms have improved. Historical: - Allergies: GABAPENTIN (Hives); Percocet (Vomit); - Home Meds: 1. Albuterol Inhl as needed 2. albuterol sulfate 90 mcg/actuation Inhl aepb as needed 3. Oral once daily 4. Tamiflu 75 mg Oral cap 2 times per day - PMHx: ADHD; Schizophrenia; Asthma; - PSHx: Tonsillectomy; Appendectomy; Exploratory lap; - Social history: Smoking status: Patient uses tobacco products, light tobacco smoker. No barriers to communication noted, The patient speaks fluent [place], Speaks appropriately for age. - Family history: No immediate family members are acutely ill. - : The pt / caregiver states he / she is not on anticoagulants. Home medication list is obtained from the patient. - Exposure Risk Screening:: None identified. DESIGN CHECKER: 07/06 16:14 LMP 12/17/2015 ck1 Vital Signs: 16:09 BP 153 / 81; Pulse 143; Resp 18 S; Temp 99.6(O); Pulse Ox 97% on R/A; Weight 124.74 kg gr2 / 275 lbs (R); Height 5 ft. 11 in. (180.34 cm) (R); Pain 5/10; 18:15 Pulse 130; ja5 19:06 BP 123 / 64; Pulse 140; Resp 32; Temp 99.5(O); Pulse Ox 95% on R/A; Pain 6/10; ja5 20:17 BP 126 / 59 (auto/); mv5 20:19 Pulse 138 MON; Pulse Ox 96% ; mv5 20:30 BP 129 / 64 (auto/); mv5 20:31 BP 129 / 64; Pulse 136 MON; Resp 18; Temp 99.0(O); Pulse Ox 95% on R/A; mv5 21:05 Pulse 134 MON; Pulse Ox 93% ; mv5 16:09 Body Mass Index 38.35 (124.74 kg, 180.34 cm) gr2 MDM: 16:24 NS 0.9% 1000 ml IV at bolus once ordered. sd1 16:24 NS 0.9% 1000 ml IV at bolus once ordered. sd1 16:24 IV Saline Lock ordered. sd1 16:24 Heart Tones ordered. sd1 16:25 Albuterol-Ipratropium 3 ml Inhalation once ordered. sd1 16:25 Call Respiratory ordered. sd1 16:25 MED Profile Ordered. EDMS 16:25 CBC with Diff Ordered. EDMS 16:25 Lactic Acid (Aguirre tube on ice) Ordered. EDMS 16:26 Call Respiratory complete. jc4 17:12 Financial registration complete. zo 17:34 MED Profile Reviewed. sd1 17:34 CBC with Diff Reviewed. sd1 17:35 CLEAR LIQUID+DIET ordered. EDMS 17:35 Lactic Acid (Aguirre tube on ice) Reviewed. sd1 17:53 Dextromethorphan-Guaifenesin Liquid 10 mg-100 mg/5 mL 5 ml PO once ordered. sd1 18:17 [facility] Payment Agreement was scanned into [employer] and attached to record. zo 18:31 ECG WITH READING ER PHYS+CARDIAG ordered. EDMS 18:46 Chest, 1 View Ordered. EDMS 18:48 Misc Pipe Bending Machine Operator Order ordered. sd1 18:51 BED REQUEST+ADM ordered. EDMS 18:51 Misc Pipe Bending Machine Operator Order complete. lbd 18:54 RESPIRATORY PANEL Ordered. EDMS 18:55 UA Ordered. EDMS 18:59 LIVER PROFILE Ordered. EDMS 19:04 Acetaminophen Tablet 650 mg PO once ordered. sd1 19:06 MED Profile Reviewed. sd1 19:07 Call Respiratory ordered. sd1 19:08 -Arterial Blood Gas Ordered. EDMS 19:12 THYROID PROFILE Ordered. EDMS 19:23 Admission / Observation Status ordered. EDMS 19:23 REGULAR DIET ordered. EDMS 19:31 BASIC METABOLIC PROFILE Ordered. EDMS 19:31 CBC WITH DIFFERENTIAL Ordered. EDMS 19:54 Call Respiratory complete. kb5 07/07 18:25 T-Sheet-- Draft Copy was scanned into [employer] and attached to record. klr Administered Medications: 07/06 16:25 Drug: Albuterol-Ipratropium 3 ml [ipratropium-albuterol 0.5 mg-3 mg(2.5 mg base)/3 mL ac1 nebulization soln (3 mL)] Route: Inhalation; 16:31 Follow up: bs coarse bilat before and after tx. ac1 16:48 Drug: NS 0.9% 1000 ml [sodium chloride 0.9 % intravenous solution] Route: IV; Rate: ja5 bolus; Site: right antecubital; 18:15 Follow up: Pulse 130 bpm; IV Status: Completed infusion ja5 18:12 Drug: Dextromethorphan-Guaifenesin 5 ml [dextromethorphan-guaifenesin 10 mg-100 mg/5 mL ja5 oral liquid (5 mL)] Route: PO; 19:41 Follow up: Response: No Adverse Reaction mv5 18:15 Drug: NS 0.9% 1000 ml [sodium chloride 0.9 % intravenous solution] Route: IV; Rate: ja5 bolus; Site: right antecubital; 19:17 Drug: Acetaminophen 650 mg [acetaminophen 325 mg tablet (2 tabs)] Route: PO; mv5 19:41 Follow up: Response: No Adverse Reaction mv5 Signatures: Dispatcher [employer] EDMS Daniela Calderon MD MD sd1 Princess Sheridan, Community Development Officer Unit lbd Flory GallegosRN RN ck1 Maddy Murillo Kristopher, PROGRESS WORKER PROGRESS WORKER kb5 Dorothy Coombs RN RN devin4 Silva Valle Megan, RN RN mv5 Cristina Curiel RT ac1 Erika Mccartney RN ja5 The chart was reviewed and I authenticate all verbal orders and agree with the evaluation and treatment provided.Corrections: (The following items were deleted from the chart) 18:58 18:55 LIVER PROFILE+LAB ordered. EDMS EDMS 19:13 19:08 THYROID PROFILE+LAB ordered. EDMS EDMS Attachments: 18:17 [facility] Payment Agreement zo 07/07 18:25 T-Sheet-- Draft Copy klr Chart Complete MTDD
--- NOTE | 2016-07-08 22:12 | EDDOCDS ---
Nurse's Notes [facility] Name: Sangita Bartlett Age: 26 yrs Sex: Female : 1990 Arrival Date: 07/06/2016 Time: 16:07 Bed 13 Private MD: Genie Sylvester M. Diagnosis: Influenza due to other identified influenza virus;Asthma Presentation: 07/06 16:11 Presenting complaint: Patient states: Went to , diagnosed with flu. Unable to ck1 tolerate food, fluids, reports nausea and vomiting after taking one dose of Tamiflu. Patient is 28 weeks . Adult Sepsis Screening: The patient does not have new or worsening altered mentation. Patient's respiratory rate is less than 22. Systolic blood pressure is greater than 100. Patient has a qSOFA score of 0- Negative Sepsis Screen. Suicide/Homicide risk assessment- the patient denies having any suicidal and/or homicidal ideations and does not present with any other emotional, behavioral or mental health complaints. Status: Patient is not a automatic teller machine servicer or dependent. Transition of care: patient was not received from another setting of care. 16:11 Method Of Arrival: Walkin/Carried/Asstd ck1 16:11 Acuity: MALENA Level 3 ck1 Triage Assessment: 16:14 General: Appears in no apparent distress, comfortable, Behavior is appropriate for age, ck1 cooperative. Pain: Location: back Pain currently is 5 out of 10 on a pain scale. HIV screening NA for this visit Offered previously. Neurological: Level of Consciousness is awake, alert, obeys commands, Oriented to person, place, time. Respiratory: Respiratory effort is unlabored, Respiratory pattern is regular, symmetrical. GI: Reports nausea, vomiting. Derm: Skin is pink, warm & dry. 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 Albuterol Inhl as needed 2. albuterol sulfate 90 mcg/actuation Inhl aepb as needed 3. Oral once daily 4. Tamiflu 75 mg Oral cap 2 times per day - PMHx: ADHD; Schizophrenia; Asthma; - PSHx: Tonsillectomy; Appendectomy; Exploratory lap; - Social history: Smoking status: Patient uses tobacco products, light tobacco smoker. No barriers to communication noted, The patient speaks fluent Guinean, Speaks appropriately for age. - Family history: No immediate family members are acutely ill. - : The pt / caregiver states he / she is not on anticoagulants. Home medication list is obtained from the patient. - Exposure Risk Screening:: None identified. Screenin:57 Screening information is obtained from the patient. Fall risk: No risks identified. ja5 Assistance ADL's: requires no assistance with activities of daily living. Abuse/DV Screen: The patient / caregiver reports he/she is: not in a situation that causes fear, pain or injury. Nutritional screening: On no prescribed diet. Advance Directives: Currently, there is no health care proxy. There is no active DNR order. There is no living will. There is no Power of Enterprise Systems Manager. home support is adequate. Assessment: 16:55 General: Appears uncomfortable, Behavior is appropriate for age, cooperative. Pain: ja5 Location: back and bilateral lateral abdomen Pain currently is 5 out of 10 on a pain scale. Neurological: Level of Consciousness is awake, alert, Oriented to person, place, time. Cardiovascular: Capillary refill < 3 seconds Heart tones S1 S2 present. Respiratory: Airway is patent Respiratory effort is even, unlabored, Breath sounds are clear bilaterally. GI: Bowel sounds present X 4 quads. Reports nausea. Derm: Skin is pink, warm & dry. 19:18 General: Appears uncomfortable, Behavior is cooperative. Neurological: Level of mv5 Consciousness is awake, alert, Oriented to person, place, time. Cardiovascular: Capillary refill < 3 seconds. Respiratory: Airway is patent Respiratory effort is even, unlabored. Derm: Skin is pink, warm & dry. 20:04 General: Hospitalist in to assess pt.. mv5 20:20 General: Appears uncomfortable, Behavior is cooperative, Pt ambulated to restroom mv5 independently with steady gait. Unable to collect urine sample at this time.. Neurological: No deficits noted. Cardiovascular: Rhythm is sinus tachycardia No ectopy. Respiratory: Airway is patent Respiratory effort is even, unlabored, Occasional dry coughing spells. Breath sounds are clear bilaterally. Derm: Skin is pink, warm & dry. 21:08 General: Appears uncomfortable, Coughing.. Neurological: No deficits noted. mv5 Respiratory: Airway is patent Respiratory effort is even, unlabored. Derm: Skin is pink, warm & dry. Vital Signs: 16:09 BP 153 / 81; Pulse 143; Resp 18 S; Temp 99.6(O); Pulse Ox 97% on R/A; Weight 124.74 kg gr2 (R); Height 5 ft. 11 in. (180.34 cm) (R); Pain 5/10; 18:15 Pulse 130; ja5 19:06 BP 123 / 64; Pulse 140; Resp 32; Temp 99.5(O); Pulse Ox 95% on R/A; Pain 6/10; ja5 20:17 BP 126 / 59 (auto/); mv5 20:19 Pulse 138 MON; Pulse Ox 96% ; mv5 20:30 BP 129 / 64 (auto/); mv5 20:31 BP 129 / 64; Pulse 136 MON; Resp 18; Temp 99.0(O); Pulse Ox 95% on R/A; mv5 21:05 Pulse 134 MON; Pulse Ox 93% ; mv5 16:09 Body Mass Index 38.35 (124.74 kg, 180.34 cm) gr2 Vitals: 16:09 Log In Time: July 06, 2016 at 16:09. gr2 17:14 Heart Tones 156BPM. ja5 ED Course: 16:09 Patient visited by Avelino Hendricks. gr2 16:09 Genie Sylvester is Private Physician. gr2 16:09 Patient moved to Waiting gr2 16:10 Patient visited by Avelino Hendricks. gr2 16:11 Patient moved to Pre RCE gr2 16:12 Triage Initiated ck1 16:19 Patient moved to Triage 3 mcp 16:21 Erika Mccartney,TRISH is Primary Nurse. mcp 16:21 Daniela Calderon MD is Attending Physician. sd1 16:21 Patient visited by Daniela Calderon MD. sd1 16:21 Patient moved to 13 mcp 16:58 MED Profile Sent. ja5 16:58 CBC with Diff Sent. ja5 16:58 Lactic Acid (Aguirre tube on ice) Sent. ja5 16:59 Patient visited by Erika Mccartney,TRISH. ja5 17:09 Dorothy Coombs RN is Primary Nurse. jc4 18:07 Patient visited by Erika Mccartney,TRISH. ja5 18:17 [facility] Payment Agreement was scanned into [employer] and attached to record. zo 19:03 Primary Nurse role handed off by Dorothy Coombs RN jc4 19:03 Primary Nurse role handed off by Erika Mccartney,TRISH jc4 19:06 Myranda Goodson,RN is Primary Nurse. mv5 19:06 Patient visited by Erika Mccartney,TRISH. ja5 19:17 Patient visited by Gurdeep Collier PCA. jmv 19:17 Nilda Medrano is Hospitalizing Provider. sd1 19:17 EKG done. (by ED staff). Reviewed by Daniela Calderon MD. jmv 19:26 -Arterial Blood Gas Sent. dk 21:09 The patient / caregiver is instructed regarding the plan of care and ED course. mv5 21:09 Inserted saline lock: 18 gauge in right antecubital area and blood collected. No mv5 procedures done that require assistance. 21:17 Chest, 1 View Returned. EDMS 07/07 18:25 T-Sheet-- Draft Copy was scanned into [employer] and attached to record. klr Administered Medications: 07/06 16:25 Drug: Albuterol-Ipratropium 3 ml [ipratropium-albuterol 0.5 mg-3 mg(2.5 mg base)/3 mL ac1 nebulization soln (3 mL)] Route: Inhalation; 16:31 Follow up: bs coarse bilat before and after tx. ac1 16:48 Drug: NS 0.9% 1000 ml [sodium chloride 0.9 % intravenous solution] Route: IV; Rate: ja5 bolus; Site: right antecubital; 18:15 Follow up: Pulse 130 bpm; IV Status: Completed infusion ja5 18:12 Drug: Dextromethorphan-Guaifenesin 5 ml [dextromethorphan-guaifenesin 10 mg-100 mg/5 mL ja5 oral liquid (5 mL)] Route: PO; 19:41 Follow up: Response: No Adverse Reaction mv5 18:15 Drug: NS 0.9% 1000 ml [sodium chloride 0.9 % intravenous solution] Route: IV; Rate: ja5 bolus; Site: right antecubital; 19:17 Drug: Acetaminophen 650 mg [acetaminophen 325 mg tablet (2 tabs)] Route: PO; mv5 19:41 Follow up: Response: No Adverse Reaction mv5 Intake: RT: 19:26 ABG's drawn from right radial artery allens test done and positive pressure held for 5 dk minutes no bleeding noted pressure bandage applied specimen sent pt. tolerated well. Order Results: Lab Order: MED Profile; SPEC'M 07/06/16 16:49 Test: GLUCOSE, FASTING; Value: 79; Range: 70-105; Units: MG/DL; Status: F Test: BLOOD UREA NITROGEN; Value: 9; Range: 7-18; Units: MG/DL; Status: F Test: CREATININE FOR GFR; Value: 0.56; Range: 0.55-1.02; Units: MG/DL; Status: F Test: GLOMERULAR FILTRATION RATE; Value: > 60.0; Range: >60; Status: F Test: SODIUM LEVEL; Value: 139; Range: 136-145; Units: MEQ/L; Status: F Test: POTASSIUM SERUM; Value: 3.6; Range: 3.5-5.1; Units: MEQ/L; Status: F Test: CHLORIDE LEVEL; Value: 107; Range: 98-107; Units: MEQ/L; Status: F Test: CARBON DIOXIDE LEVEL; Value: 20; Range: 21-32; Abnormal: Below low normal; Units: MEQ/L; Status: F Test: ANION GAP; Value: 12; Range: 8-16; Units: MEQ/L; Status: F Test: CALCIUM LEVEL; Value: 9.4; Range: 8.5-10.1; Units: MG/DL; Status: F Test Note: ; Units are mL/min/1.73 m2 Chronic Kidney Disease Staging per NKF: Stage I & II GFR >=60 Normal to Mildly Decreased Stage III GFR 30-59 Moderately Decreased Stage IV GFR 15-29 Severely Decreased Stage V GFR <15 Very Little GFR Left ESRD GFR <15 on CARDROOM PLASTIC CARD GRADER Lab Order: CBC with Diff; SPEC'07/06/16 16:49 Test: WHITE BLOOD COUNT; Value: 12.1; Range: 4.0-10.0; Abnormal: Above high normal; Units: K/mm3; Status: F Test: RED BLOOD COUNT; Value: 3.67; Range: 4.00-5.40; Abnormal: Below low normal; Units: M/mm3; Status: F Test: HEMOGLOBIN; Value: 11.6; Range: 12.0-16.0; Abnormal: Below low normal; Units: g/dl; Status: F Test: HEMATOCRIT; Value: 34.0; Range: 36.0-47.0; Abnormal: Below low normal; Units: %; Status: F Test: MEAN CORPUSCULAR VOLUME; Value: 92.6; Range: 80.0-96.0; Units: fl; Status: F Test: MEAN CORPUSCULAR HEMOGLOBIN; Value: 31.7; Range: 27.0-33.0; Units: pg; Status: F Test: MEAN CORPUSCULAR HGB CONC; Value: 34.2; Range: 32.0-36.5; Units: g/dl; Status: F Test: RED CELL DISTRIBUTION WIDTH; Value: 12.6; Range: 11.5-14.5; Units: %; Status: F Test: PLATELET COUNT, AUTOMATED; Value: 273; Range: 150-450; Units: k/mm3; Status: F Test: NEUTROPHILS %; Value: 87.0; Range: 36.0-66.0; Abnormal: Above high normal; Units: %; Status: F Test: LYMPH %; Value: 3.8; Range: 24.0-44.0; Abnormal: Below low normal; Units: %; Status: F Test: MONO %; Value: 7.8; Range: 0.0-5.0; Abnormal: Above high normal; Units: %; Status: F Test: EOS %; Value: 0.5; Range: 0.0-3.0; Units: %; Status: F Test: BASO %; Value: 0.1; Range: 0.0-1.0; Units: %; Status: F Test: LARGE UNSTAINED CELL %; Value: 0.9; Range: 0.0-4.0; Units: %; Status: F Test: NEUTROPHILS #; Value: 10.5; Range: 1.8-7.7; Abnormal: Above high normal; Units: K/mm3; Status: F Test: LYMPH #; Value: 0.6; Range: 1.5-6.5; Abnormal: Below low normal; Units: K/mm3; Status: F Test: MONO #; Value: 0.9; Range: 0.0-0.8; Abnormal: Above high normal; Units: K/mm3; Status: F Test: EOS #; Value: 0.1; Range: 0.0-0.50; Units: K/mm3; Status: F Test: BASO #; Value: 0.0; Range: 0.0-0.2; Units: K/mm3; Status: F Test: LARGE UNSTAINED CELL #; Value: 0.1; Range: 0.0-0.4; Units: K/mm3; Status: F Lab Order: Lactic Acid (Aguirre tube on ice); [facility] 07/06/16 16:49 Test: LACTIC ACID SEPSIS PROTOCOL; Value: 0.9; Range: 0.4-2.0; Units: MMOL/L; Status: F Lab Order: LIVER PROFILE; [facility] 07/06/16 16:49 Test: AST/SGOT; Value: 55; Range: 15-37; Abnormal: Above high normal; Units: U/L; Status: F Test: ALT/SGPT; Value: 26; Range: 12-78; Units: U/L; Status: F Test: ALKALINE PHOSPHATASE; Value: 99; Range: 45-117; Units: U/L; Status: F Test: BILIRUBIN,TOTAL; Value: 0.3; Range: 0.2-1.0; Units: MG/DL; Status: F Test: BILIRUBIN,DIRECT; Value: < 0.1; Range: 0.0-0.2; Units: MG/DL; Status: F Test: TOTAL PROTEIN; Value: 7.1; Range: 6.4-8.2; Units: GM/DL; Status: F Test: ALBUMIN; Value: 3.1; Range: 3.2-5.2; Abnormal: Below low normal; Units: GM/DL; Status: F Test: ALBUMIN/GLOBULIN RATIO; Value: 0.78; Range: 1.00-1.93; Abnormal: Below low normal; Status: F Lab Order: -Arterial Blood Gas; [facility] 07/06/16 19:24 Test: ABG pH (ARTERIAL); Value: 7.468; Range: 7.350-7.450; Abnormal: Above high normal; Units: UNITS; Status: F Test: ABG PARTIAL PRESSURE CO2; Value: 23.7; Range: 35.0-45.0; Abnormal: Below low normal; Units: mmHg; Status: F Test: ABG PARTIAL PRESSURE O2; Value: 74.5; Range: 75.0-100.0; Abnormal: Below low normal; Units: mmHg; Status: F Test: ABG TOTAL CO2; Value: 17.5; Range: 22.0-29.0; Abnormal: Below low normal; Units: MEQ/L; Status: F Test: ABG HCO3; Value: 16.8; Range: 22.0-26.0; Abnormal: Below low normal; Units: MEQ/L; Status: F Test: ABG BASE EXCESS; Value: -5.4; Range: -2.0-2.0; Abnormal: Below low normal; Status: F Test: ABG STANDARD HCO3; Value: 20.0; Range: 22.0-26.0; Abnormal: Below low normal; Units: MEQ/L; Status: F Test: ABG O2 SATURATION; Value: 95.0; Range: 95.0-99.0; Units: %; Status: F Test: ABG DEVICE; Value: NASAL ALLI; Status: F Lab Order: THYROID PROFILE; SPEC'M 07/06/16 16:49 Test: T UPTAKE; Value: 22; Range: 30-39; Abnormal: Below low normal; Units: %; Status: F Test: THYROXINE (T4); Value: 11.6; Range: 4.5-12.0; Units: UG/DL; Status: F Test: FREE THYROXINE INDEX; Value: 2.6; Range: 1.3-4.8; Units: %; Status: F Test: THYROID STIMULATING HORMONE; Value: 0.907; Range: 0.358-3.740; Units: uIU/ML; Status: F Radiology Order: Chest, 1 View Test: Chest, 1 View REASON FOR EXAMINATION: sob please shield patient is 28 weeks ; CHEST X-RAY, PA: 07/06/2016.; ; Comparison: Portable chest 04/07/2016, two-view chest 02/01/2015.; ; Clinical history: Dyspnea. 28 weeks . Single view requested.; ; Study shows the lungs adequately inflated. Some minor patchy basilar atelectasis; or early infiltrates infrahilar right medial base and lingula. No effusion or; dense consolidation with air bronchograms. The heart, mediastinal and hilar; contours are normal. Airway intact. No free air. Bones intact.; ; Impression:; Minor right infrahilar patchy infiltrate or atelectasis with subtle lingular; patchy densities as well. No air bronchograms with dense consolidation nor; effusion.; ; ; ; ; Unreviewed; Outcome: 19:18 Decision to Hospitalize by Provider. sd1 21:09 Discharge Assessment: Patient awake, alert and oriented x 3. No cognitive and/or mv5 functional deficits noted. Patient verbalized understanding of disposition instructions. patient administered narcotics - no. The following High Risk Discharge criteria are identified: None. Admitted to PCU. Condition: stable. No special radiology studies were completed. Property :Personal belongings accompany Pt. 21:11 Patient left the ED. mv5 Signatures: Dispatcher [employer] EDMS Daniela Calderon MD MD sd1 Vivi Livingston RN RN Cristina Mendoza,RT RT acFlory Azevedo RN RN ck1 Elizabeth Henriquez,RT RT Maddy Lord Jennifer RN RN jc4 Avelino Hendricks grSilva Rivers Jose, Erika MoraRN RN Myranda Camarena,RN RN mv5 Corrections: (The following items were deleted from the chart) 16:15 16:11 Presenting complaint: Patient states: Went to UC, diagnosed with flu. Unable to ck1 tolerate food, fluids, reports nausea and vomiting after taking one dose of Tamiflu ck1 16:15 16:11 Acuity: MALENA Level 4 ck1 ck1 Chart Complete MTDD
--- NOTE | 2016-07-08 22:12 | EDDOCDS ---
Physician Documentation [facility] Name: Sangita Bartlett Age: 26 yrs Sex: Female : 1990 Arrival Date: 07/06/2016 Time: 16:07 Bed 13 Private MD: Genie Sylvester M. Disposition: 07/06/16 19:18 Hospitalization ordered by Nilda Medrano for Inpatient Admission. Preliminary diagnosis are Influenza due to other identified influenza virus, Asthma. - Bed requested for PCU. - Status is Inpatient Admission. mv5 - Condition is Stable. - Problem is an acute exacerbation. - Symptoms have improved. Historical: - Allergies: GABAPENTIN (Hives); Percocet (Vomit); - Home Meds: 1. Albuterol Inhl as needed 2. albuterol sulfate 90 mcg/actuation Inhl aepb as needed 3. Oral once daily 4. Tamiflu 75 mg Oral cap 2 times per day - PMHx: ADHD; Schizophrenia; Asthma; - PSHx: Tonsillectomy; Appendectomy; Exploratory lap; - Social history: Smoking status: Patient uses tobacco products, light tobacco smoker. No barriers to communication noted, The patient speaks fluent Irish, Speaks appropriately for age. - Family history: No immediate family members are acutely ill. - : The pt / caregiver states he / she is not on anticoagulants. Home medication list is obtained from the patient. - Exposure Risk Screening:: None identified. 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 11 in. (180.34 cm) (R); Pain 5/10; 18:15 Pulse 130; ja5 19:06 BP 123 / 64; Pulse 140; Resp 32; Temp 99.5(O); Pulse Ox 95% on R/A; Pain 6/10; ja5 20:17 BP 126 / 59 (auto/); mv5 20:19 Pulse 138 MON; Pulse Ox 96% ; mv5 20:30 BP 129 / 64 (auto/); mv5 20:31 BP 129 / 64; Pulse 136 MON; Resp 18; Temp 99.0(O); Pulse Ox 95% on R/A; mv5 21:05 Pulse 134 MON; Pulse Ox 93% ; mv5 16:09 Body Mass Index 38.35 (124.74 kg, 180.34 cm) gr2 MDM: 16:24 NS 0.9% 1000 ml IV at bolus once ordered. sd1 16:24 NS 0.9% 1000 ml IV at bolus once ordered. sd1 16:24 IV Saline Lock ordered. sd1 16:24 Heart Tones ordered. sd1 16:25 Albuterol-Ipratropium 3 ml Inhalation once ordered. sd1 16:25 Call Respiratory ordered. sd1 16:25 MED Profile Ordered. EDMS 16:25 CBC with Diff Ordered. EDMS 16:25 Lactic Acid (Aguirre tube on ice) Ordered. EDMS 16:26 Call Respiratory complete. jc4 17:12 Financial registration complete. zo 17:34 MED Profile Reviewed. sd1 17:34 CBC with Diff Reviewed. sd1 17:35 CLEAR LIQUID+DIET ordered. EDMS 17:35 Lactic Acid (Aguirre tube on ice) Reviewed. sd1 17:53 Dextromethorphan-Guaifenesin Liquid 10 mg-100 mg/5 mL 5 ml PO once ordered. sd1 18:17 [facility] Payment Agreement was scanned into [employer] and attached to record. zo 18:31 ECG WITH READING ER PHYS+CARDIAG ordered. EDMS 18:46 Chest, 1 View Ordered. EDMS 18:48 Misc Auto Service Mechanic Order ordered. sd1 18:51 BED REQUEST+ADM ordered. EDMS 18:51 Misc Auto Service Mechanic Order complete. lbd 18:54 RESPIRATORY PANEL Ordered. EDMS 18:55 UA Ordered. EDMS 18:59 LIVER PROFILE Ordered. EDMS 19:04 Acetaminophen Tablet 650 mg PO once ordered. sd1 19:06 MED Profile Reviewed. sd1 19:07 Call Respiratory ordered. sd1 19:08 -Arterial Blood Gas Ordered. EDMS 19:12 THYROID PROFILE Ordered. EDMS 19:23 Admission / Observation Status ordered. EDMS 19:23 REGULAR DIET ordered. EDMS 19:31 BASIC METABOLIC PROFILE Ordered. EDMS 19:31 CBC WITH DIFFERENTIAL Ordered. EDMS 19:54 Call Respiratory complete. kb5 07/07 18:25 T-Sheet-- Draft Copy was scanned into [employer] and attached to record. klr Administered Medications: 07/06 16:25 Drug: Albuterol-Ipratropium 3 ml [ipratropium-albuterol 0.5 mg-3 mg(2.5 mg base)/3 mL ac1 nebulization soln (3 mL)] Route: Inhalation; 16:31 Follow up: bs coarse bilat before and after tx. ac1 16:48 Drug: NS 0.9% 1000 ml [sodium chloride 0.9 % intravenous solution] Route: IV; Rate: ja5 bolus; Site: right antecubital; 18:15 Follow up: Pulse 130 bpm; IV Status: Completed infusion ja5 18:12 Drug: Dextromethorphan-Guaifenesin 5 ml [dextromethorphan-guaifenesin 10 mg-100 mg/5 mL ja5 oral liquid (5 mL)] Route: PO; 19:41 Follow up: Response: No Adverse Reaction mv5 18:15 Drug: NS 0.9% 1000 ml [sodium chloride 0.9 % intravenous solution] Route: IV; Rate: ja5 bolus; Site: right antecubital; 19:17 Drug: Acetaminophen 650 mg [acetaminophen 325 mg tablet (2 tabs)] Route: PO; mv5 19:41 Follow up: Response: No Adverse Reaction mv5 Signatures: Dispatcher [employer] EDMS Daniela Calderon MD MD sd1 Princess Sheridan, Rectifying Attendant Unit lbd Flory GallegosRN RN ck1 Maddy Murillo Kristopher, NITROGLYCERIN SEPARATOR OPERATOR NITROGLYCERIN SEPARATOR OPERATOR kb5 Dorothy Coombs RN RN devin4 Silva Valle Megan, RN RN mv5 Cristina Curiel RT ac1 Erika Mccartney RN ja5 The chart was reviewed and I authenticate all verbal orders and agree with the evaluation and treatment provided.Corrections: (The following items were deleted from the chart) 18:58 18:55 LIVER PROFILE+LAB ordered. EDMS EDMS 19:13 19:08 THYROID PROFILE+LAB ordered. EDMS EDMS Attachments: 18:17 [facility] Payment Agreement zo 07/07 18:25 T-Sheet-- Draft Copy klr Chart Complete MTDD
== END 2016-07-07 14:15 | disposition left against medical advice (07) | DRG 781 ==
LOC: M ED 16:07 → M ED INP 19:17 → M PCU 21:38
PROVIDERS: ADMIT General Practice; ATTEND Internal Medicine
DX: O99.513 Diseases of the respiratory system complicating pregnancy, third trimester (principal); I47.1 Supraventricular tachycardia; J11.1 Influenza due to unidentified influenza virus with other respiratory manifestations; J45.909 Unspecified asthma, uncomplicated; O99.333 Smoking (tobacco) complicating pregnancy, third trimester; F17.210 Nicotine dependence, cigarettes, uncomplicated; Z3A.28 28 weeks gestation of pregnancy; O99.413 Diseases of the circulatory system complicating pregnancy, third trimester

== ENCOUNTER 2016-07-08 10:26 | Inpatient (IN) | payer MEDICARE, MEDICAID ==
[~2016-07-08] VITALS: Ht 180.3 cm; Wt 123.6 kg
[~2016-07-08 10:26] MED LIST changes: +ALBU17IN INH; +LORA10TA2 PO; +MONT10TA2 PO; +OSEL75CA PO; +PRENTAB16 PO
[2016-07-08] MEDS ORDERED: ACETAMINOPHEN 500 MG TAB PO PRN (10:45)
[2016-07-08] MEDS ORDERED: ONDANSETRON 4MG/2ML VIAL (J2405) IV PRN (10:45)
[2016-07-08] MEDS ORDERED: guaiFENesin DM LIQ 10ML UD PO PRN (11:00)
[2016-07-08 12:05] VITALS: BP 130/69
[2016-07-08 12:14] LABS: BASO % 0.3 % (0.0-1.0); LARGE UNSTAINED CELL % 1.4 % (0.0-4.0); LYMPH % 7.4 % (24.0-44.0); MEAN CORPUSCULAR HEMOGLOBIN 31.5 pg (27.0-33.0); MEAN CORPUSCULAR HGB CONC 33.9 g/dl (32.0-36.5); MEAN CORPUSCULAR VOLUME 92.9 fl (80.0-96.0); MONO # 0.8 K/mm3 (0.0-0.8); MONO % 7.2 % (0.0-5.0); NEUTROPHILS # 9.2 K/mm3 (1.8-7.7); NEUTROPHILS % 82.7 % (36.0-66.0); PLATELET COUNT, AUTOMATED 261 k/mm3 (150-450); RED CELL DISTRIBUTION WIDTH 12.7 % (11.5-14.5); WHITE BLOOD COUNT 11.1 K/mm3 (4.0-10.0)
[2016-07-08 12:15] LABS: EOS # 0.1 K/mm3 (0.0-0.50); LARGE UNSTAINED CELL # 0.2 K/mm3 (0.0-0.4)
[2016-07-08 12:49] LABS: ALBUMIN 3.1 GM/DL (3.2-5.2); ALBUMIN/GLOBULIN RATIO 0.94 (1.00-1.93); ALKALINE PHOSPHATASE 105 U/L (45-117); ALT/SGPT 26 U/L (12-78); ANION GAP 10 MEQ/L (8-16); AST/SGOT 66 U/L (15-37); BILIRUBIN,TOTAL 0.3 MG/DL (0.2-1.0); BLOOD UREA NITROGEN 5 MG/DL (7-18); CALCIUM LEVEL 8.8 MG/DL (8.5-10.1); CARBON DIOXIDE LEVEL 23 MEQ/L (21-32); CHLORIDE LEVEL 109 MEQ/L (98-107); CREATININE FOR GFR 0.57 MG/DL (0.55-1.02); GLOMERULAR FILTRATION RATE > 60.0 (>60); GLUCOSE, FASTING 88 MG/DL (70-105); POTASSIUM SERUM 4.2 MEQ/L (3.5-5.1); SODIUM LEVEL 142 MEQ/L (136-145); TOTAL PROTEIN 6.4 GM/DL (6.4-8.2)
--- NOTE | 2016-07-08 13:50 | HPE ---
DATE OF ADMISSION: 07/08/2016 CHIEF COMPLAINT: Productive cough and nausea. HISTORY OF PRESENT ILLNESS: 26-year-old 1 female at 28 and 2/7 weeks gestation by last menstrual period and consistent with 6-week ultrasound, estimated date of confinement (EDC) of 09/28/2016, who presents with four days of cough, which has become productive of greenish sputum. She has had worsening congestion. She admits to fevers intermittently and body aches. She has had nausea, but rare episodes of vomiting. She has also had diarrhea for the last several days. Her nausea prevents her from eating. She has no appetite. She was diagnosed with influenza virus at an urgent care and started on Tamiflu. She was admitted to the hospital from 07/06/2016 to 07/07/2016 with influenza complicating and was noted to have tachycardia at that time. She signed out against medical advice yesterday because she was feeling better and had personal leave to attend to. However, today, she has worsening symptoms, including congestion, breathing and appetite problems. MEDICAL HISTORY: 1. Attention deficit hyperactivity disorder (ADHD). 2. Schizophrenia. 3. Asthma. 4. Chronic hypertension. 5. Supraventricular tachycardia (SVT). SURGICAL HISTORY: 1. Tonsillectomy. 2. Appendectomy. 3. Exploratory laparoscopy. 4. Removal of a cyst from the breast. ALLERGIES: PERCOCET and GABAPENTIN SOCIAL HISTORY: The patient smokes occasional cigarettes, approximately five to six per day. Denies alcohol or drug use. She lives with her boyfriend, as well as a dog and two cats at home. FAMILY HISTORY: Noncontributory. MEDICATIONS: - Tamiflu - vitamins - albuterol inhaler PHYSICAL EXAMINATION: VITAL SIGNS: Blood pressure 130/69, pulse 124, temperature 96.3, oxygen saturation 98% on room air, respiratory rate 20. She appears moderately uncomfortable. HEAD AND NECK EXAM: Normal. LUNGS: Clear to auscultation. HEART: Regular rhythm and tachycardic. ABDOMEN: Nontender, gravid. heart tones 130s. EXTREMITIES: Nontender. There is trace edema. ASSESSMENT: 26-year-old 1 at 28 and 2/7 weeks gestation with complication of influenza infection during . The patient desires readmission for failure to thrive at home after signing against medical advice. Thus, we will admit the patient for IV fluid support, as well as breathing treatments. There will be monitoring during hospitalization. Repeat laboratories to be sure that she is stable.
[2016-07-08] MEDS: LEVALBUTEROL 1.25 MG/0.5 ML CONCENTRATE NEB INH SCH ×2 (13:57→20:15)
[2016-07-08] MEDS: PRENATAL VITAMIN TAB PO SCH (14:03)
[2016-07-08] MEDS: KCL 20MEQ IN D5/0.45NS 1000ML 1,000 ML IV SCH ×2 (14:03→21:36)
[2016-07-08 15:50] VITALS: BP 136/70
--- NOTE | 2016-07-08 17:16 | CR.PDOC ---
[facility] Consultation Consultation DATE OF CONSULTATION: 07/08/16 PRIMARY CARE PHYSICIAN: Genie Sylvester REFERRING PROVIDER: Aleksandr Jones M.D. ATTENDING PHYSICIAN: Dr. Dhruv Ordaz REASON FOR CONSULTATION/CHIEF COMPLAINT: . Influenza positive, asthma exacerbation HISTORY OF PRESENT ILLNESS: . 26-year-old female with past medical history of asthma, schizophrenia, ADHD, and supraventricular tachycardia, who is currently 28 weeks presented to ER with a chief complaint of flu, cough, nausea with vomiting. The patient follows with Dr. Dhruv Ordaz of [facility] [employer]. The patient was recently [facility] the evening of 07/06 for cough, shortness of breath, wheezing secondary to influenza. However, the patient did sign out AGAINST MEDICAL ADVICE the following day (yesterday). At this time, the patient returned to [facility] after she states that her symptoms of cough , shortness of breath, and wheezing progressively worsened when she went home. At this time, the hospitalist service has been consulted to further assist with the management of influenza positive symptoms, and underlying tachycardia. ALLERGIES: Please see below. HOME MEDICATIONS: Please see below. PAST MEDICAL HISTORY: As noted above PAST SURGICAL HISTORY: Tonsillectomy, appendectomy, exploratory laparotomy, sebaceous cyst removal SOCIAL HISTORY: Typically smokes a quarter pack a day, states that she has not done so over the last 1 week. Has been smoking since age of 17. Denies any alcohol or illicit drug use. REVIEW OF SYSTEMS: 10 point review of systems negative unless otherwise specified in HPI PHYSICAL EXAMINATION: VITAL SIGNS: Please see below. GENERAL: Awake, alert, oriented 4 HEENT: Normocephalic, atraumatic NECK: No JVD CARDIOVASCULAR EXAMINATION: Tachycardic, normal S1, S2 RESPIRATORY EXAMINATION: Diffuse expiratory wheezing noted in the lung erickson bilaterally. Rhonchi noted in the upper lung zones bilaterally. No rales noted. ABDOMINAL EXAMINATION: Soft, nontender. Consistent with 28 weeks gestation EXTREMITIES: No swelling, no tenderness LABORATORY DATA: Please see below. ASSESSMENT/PLAN: Shortness of breath, wheezing, cough secondary to influenza Continue the patient on Tamiflu Continue supportive treatment with IV fluid hydration, guaifenesin Nebulizer treatment ordered We will continue to monitor her respiratory status Persistent sinus tachycardia The patient has been noted to be tachycardic with a heart rate of 120s at rest, which appears to go as high as 150-160 upon ambulation Although I do believe that some of this is attributed to the patient's viral respiratory tract infection, the patient states that she has had palpitations for the past 4+ months, and reports having a heart rate noted to be in the 140s as an outpatient as well. She states that she has had a Holter monitor recording done in the past, and has followed with the physician printing bindery assistant with the local regional engagement consultant's office She was apparently prescribed labetalol in the past to control her heart rate, however she had an adverse reaction to this I will give Dr. Quiñonez of cardiology a call regarding her workup in the past, and ask if he can comment on any further recommendations Will hold off on ordering a 2-D echocardiogram for now, as this may have been done as an outpatient already 1 at 28 weeks gestation We'll defer to Dr. Ordaz for further management of the patient's obstetric care DVT prophylaxis-SCDs Vital Signs/I&O Vital Signs Date Time Temp Pulse Resp B/P Pulse Ox O2 Delivery O2 Flow Rate FiO2 07/08/16 16:07 Room Air 07/08/16 15:50 96.2 114 22 136/70 96 Laboratory Data Labs 24H Laboratory Tests 2 07/08/16 12:04: Blood Urea Nitrogen 5L, Creatinine 0.57, Sodium Level 142, Potassium Level 4.2, Chloride Level 109H, Carbon Dioxide Level 23, Calcium Level 8.8, Aspartate Amino Transf (AST/SGOT) 66H, Alanine Aminotransferase (ALT/SGPT) 26, Alkaline Phosphatase 105, Total Bilirubin 0.3, Total Protein 6.4, Albumin 3.1L, Albumin/ Globulin Ratio 0.94L, Anion Gap 10, White Blood Count 11.1H, Red Blood Count 3.66L, Hemoglobin 11.5L, Hematocrit 34.0L, Mean Corpuscular Volume 92.9, Mean Corpuscular Hemoglobin 31.5, Mean Corpuscular Hemoglobin Concent 33.9, Red Cell Distribution Width 12.7, Platelet Count 261, Neutrophils (%) (Auto) 82.7H, Lymphocytes (%) (Auto) 7.4L, Monocytes (%) (Auto) 7.2H, Eosinophils (%) (Auto) 1.0, Basophils (%) (Auto) 0.3, Neutrophils # (Auto) 9.2H, Lymphocytes # (Auto) 1.0L, Monocytes # (Auto) 0.8, Eosinophils # (Auto) 0.1, Basophils # (Auto) 0.0, Glomerular Filtration Rate > 60.0, Large Unclassified Cells # 0.2, Large Unclassified Cells % 1.4 CBC/BMP Laboratory Tests 07/08/16 12:04 Calcium Level 8.8, Aspartate Amino Transf (AST/SGOT) 66 H, Alanine Aminotransferase (ALT/SGPT) 26, Alkaline Phosphatase 105, Total Bilirubin 0.3, Total Protein 6.4, Albumin 3.1 L, Red Blood Count 3.66 L, Mean Corpuscular Volume 92.9, Mean Corpuscular Hemoglobin 31.5, Mean Corpuscular Hemoglobin Concent 33.9, Red Cell Distribution Width 12.7, Neutrophils (%) (Auto) 82.7 H, Lymphocytes (%) (Auto) 7.4 L, Monocytes (%) (Auto) 7.2 H, Eosinophils (%) (Auto ) 1.0, Basophils (%) (Auto) 0.3, Neutrophils # (Auto) 9.2 H, Lymphocytes # (Auto ) 1.0 L, Monocytes # (Auto) 0.8, Eosinophils # (Auto) 0.1, Basophils # (Auto) 0.0 Allergies Coded Allergies: Gabapentin (Unverified Allergy, Unknown, HIVES, 07/08/16) Oxycodone (Unverified Adverse Reaction, Unknown, NAUSEA, 07/08/16) Home Medications Scheduled Montelukast Sodium (Montelukast Sodium) 10 Mg Tab 10 MG PO DAILY (Reported) Multivitamins/ ( Complete 14-0.4 mg) 1 Tab Tab 1 TAB PO DAILY ( Reported) Oseltamivir Phosphate (Tamiflu) 75 Mg Cap 75 MG PO BID (Reported) Scheduled PRN Albuterol Sulfate (Ventolin Hfa) 200 Puff/8 Gm Aers 2 PUFF INH QID PRN PRN SHORTNESS OF BREATH (Reported) Loratadine (Loratadine) 10 Mg Tab 10 MG PO DAILY PRN PRN ALLERGIES (Reported) ALEKSANDR JONES MD Jul 08, 2016 17:16
[2016-07-08 20:45] VITALS: BP 133/61
[2016-07-08] MEDS: OSELTAMIVIR PHOSPHATE 75 MG CAP (TAMIFLU) PO SCH (21:35)
[2016-07-09 00:11] VITALS: BP 142/63
[2016-07-09] MEDS: LEVALBUTEROL 1.25 MG/0.5 ML CONCENTRATE NEB INH SCH ×4 (01:26→20:52)
[2016-07-09 04:38] VITALS: BP 119/58
[2016-07-09] MEDS: KCL 20MEQ IN D5/0.45NS 1000ML 1,000 ML IV SCH ×2 (04:46→12:32)
[2016-07-09 05:28] LABS: MAGNESIUM LEVEL 1.7 MG/DL (1.8-2.4)
[2016-07-09 07:50] VITALS: BP 119/56
[2016-07-09 08:22] LABS: ANION GAP 10 MEQ/L (8-16); BLOOD UREA NITROGEN 6 MG/DL (7-18); CALCIUM LEVEL 8.4 MG/DL (8.5-10.1); CARBON DIOXIDE LEVEL 21 MEQ/L (21-32); CHLORIDE LEVEL 110 MEQ/L (98-107); CREATININE FOR GFR 0.54 MG/DL (0.55-1.02); GLOMERULAR FILTRATION RATE > 60.0 (>60); GLUCOSE, FASTING 118 MG/DL (70-105); POTASSIUM SERUM 3.8 MEQ/L (3.5-5.1); SODIUM LEVEL 141 MEQ/L (136-145)
[2016-07-09 08:25] LABS: MEAN CORPUSCULAR HGB CONC 33.4 g/dl (32.0-36.5); RED CELL DISTRIBUTION WIDTH 12.6 % (11.5-14.5); WHITE BLOOD COUNT 7.4 K/mm3 (4.0-10.0)
[2016-07-09] MEDS: OSELTAMIVIR PHOSPHATE 75 MG CAP (TAMIFLU) PO SCH ×2 (08:54→20:37)
[2016-07-09] MEDS: PRENATAL VITAMIN TAB PO SCH (08:54)
[2016-07-09] MEDS: MAGNESIUM OXIDE 400 MG TAB (MAG-OX) PO SCH ×3 (08:54→20:37)
--- NOTE | 2016-07-09 11:39 | IPNPDOC ---
Subjective Date Seen The patient was seen on 07/09/16. Subjective Chief Complaint/HPI The patient is a 26-year-old female admitted with a reason for visit of Influenza, . General: Denies: Chills, Night Sweats Constitutional: Denies: Chills, Fever Eyes: Denies: Pain, Vision change ENT: Denies: Ear Pain, Head Aches Skin: Denies: Lesions, Rash Pulmonary: Reports: Cough, Dyspnea Cardiovascular: Denies: Chest Pain, Palpitations Gastrointestinal: Denies: Nausea, Vomiting Genitourinary: Denies: Dysuria, Frequency, Incontinence Hematologic: Denies: Bleeding Excessively, Bruising Objective Physical Examination General Exam: Positive: Alert, Cooperative, No Acute Distress ENT Exam: Positive: Atraumatic, Mucous membr. moist/pink Neck Exam: Negative: JVD Chest Exam: Positive: Diminished, Rhonchi, Wheezing, Negative: Rales Heart Exam: Positive: Normal S1, Normal S2, Tachycardic Telemetry: Positive: Sinus, Tachycardia Abdomen Exam: Positive: Other (consistent with 28 weeks of gestation), Soft, Negative: Tenderness Extremity Exam: Negative: Swelling, Tenderness Assessment /Plan Plan/VTE VTE Prophylaxis Ordered?: Yes (SCDs) Plan Shortness of breath, wheezing, cough secondary to influenza Continue the patient on Tamiflu Continue supportive treatment with IV fluid hydration, guaifenesin Nebulizer treatment ordered Patient states that her respiratory status has improved since admission We will continue to monitor her respiratory status Persistent sinus tachycardia Heart Rate better controlled this AM, with Sinus Tachycardia in the low 100s continue to monitor on Telemtry Will await further recommendations from Cardiology 1 at 28 weeks gestation We'll defer to Dr. Ordaz for further management of the patient's obstetric care DVT prophylaxis-SCDs Disposition: Will continue to monitor the patient's respiratory status, anticipate D/C in the next 24-48 hrs VS, I&O, [facility], [facility] Vital Signs/I&O Vital Signs Date Time Temp Pulse Resp B/P Pulse Ox O2 Delivery O2 Flow Rate FiO2 07/09/16 08:42 Room Air 07/09/16 07:50 96.8 100 20 119/56 97 I&O- Last 24 Hours up to 6 AM 07/09/16 06:00 Intake Total 2580 ml Output Total 1600 ml Balance 980 ml Laboratory Data 24H LABS Laboratory Tests 2 07/08/16 12:04: Blood Urea Nitrogen 5L, Creatinine 0.57, Sodium Level 142, Potassium Level 4.2, Chloride Level 109H, Carbon Dioxide Level 23, Calcium Level 8.8, Aspartate Amino Transf (AST/SGOT) 66H, Alanine Aminotransferase (ALT/SGPT) 26, Alkaline Phosphatase 105, Total Bilirubin 0.3, Total Protein 6.4, Albumin 3.1L, Albumin/ Globulin Ratio 0.94L, Anion Gap 10, White Blood Count 11.1H, Red Blood Count 3.66L, Hemoglobin 11.5L, Hematocrit 34.0L, Mean Corpuscular Volume 92.9, Mean Corpuscular Hemoglobin 31.5, Mean Corpuscular Hemoglobin Concent 33.9, Red Cell Distribution Width 12.7, Platelet Count 261, Neutrophils (%) (Auto) 82.7H, Lymphocytes (%) (Auto) 7.4L, Monocytes (%) (Auto) 7.2H, Eosinophils (%) (Auto) 1.0, Basophils (%) (Auto) 0.3, Neutrophils # (Auto) 9.2H, Lymphocytes # (Auto) 1.0L, Monocytes # (Auto) 0.8, Eosinophils # (Auto) 0.1, Basophils # (Auto) 0.0, Glomerular Filtration Rate > 60.0, Large Unclassified Cells # 0.2, Large Unclassified Cells % 1.4 07/09/16 04:35: Blood Urea Nitrogen 6L, Creatinine 0.54L, Sodium Level 141, Potassium Level 3.8 , Chloride Level 110H, Carbon Dioxide Level 21, Calcium Level 8.4L, Anion Gap 10 , Glomerular Filtration Rate > 60.0, Magnesium Level 1.7L CBC/BMP Laboratory Tests 07/08/16 12:04 Calcium Level 8.8, Aspartate Amino Transf (AST/SGOT) 66 H, Alanine Aminotransferase (ALT/SGPT) 26, Alkaline Phosphatase 105, Total Bilirubin 0.3, Total Protein 6.4, Albumin 3.1 L, Red Blood Count 3.66 L, Mean Corpuscular Volume 92.9, Mean Corpuscular Hemoglobin 31.5, Mean Corpuscular Hemoglobin Concent 33.9, Red Cell Distribution Width 12.7, Neutrophils (%) (Auto) 82.7 H, Lymphocytes (%) (Auto) 7.4 L, Monocytes (%) (Auto) 7.2 H, Eosinophils (%) (Auto ) 1.0, Basophils (%) (Auto) 0.3, Neutrophils # (Auto) 9.2 H, Lymphocytes # (Auto ) 1.0 L, Monocytes # (Auto) 0.8, Eosinophils # (Auto) 0.1, Basophils # (Auto) 0.0 07/09/16 04:35 Calcium Level 8.4 L, Red Blood Count 3.18 L, Mean Corpuscular Volume 93.0, Mean Corpuscular Hemoglobin 31.0, Mean Corpuscular Hemoglobin Concent 33.4, Red Cell Distribution Width 12.6 ALEKSANDR JONES MD Jul 09, 2016 11:39
[2016-07-09 12:00] VITALS: BP 128/70
[2016-07-09 16:00] VITALS: BP 142/65
[2016-07-09 20:00] VITALS: BP 145/72
--- NOTE | 2016-07-28 08:31 | DSES ---
DATE OF ADMISSION: 07/08/2016 DATE OF DISCHARGE: 07/09/2016 26-year-old G1 female, 28-2/7 weeks gestation presents with four days of cough which has become productive of greenish sputum. She has worsening congestion. She has fevers and body aches. She has a decreased appetite and nausea. She was recently diagnosed with influenza and started on Tamiflu. She was hospitalized previously from 07/06/2016 to 07/07/2016 with influenza complicating her and was noted to be tachycardic. She signed out AGAINST MEDICAL ADVICE to attend to personal matters; however, her symptoms became worse and she desired readmission. HOSPITAL COURSE: On 07/08/2016 the patient was readmitted. She has received intravenous (IV) fluids, antinausea medicine and Tamiflu. She also received breathing treatments. Her symptoms improved overnight. On the next day she felt dramatically better. She desired discharge from the hospital as she stated she was feeling depressed. On 07/09/2016 later in the evening she was deemed stable for discharge. ADMISSION DIAGNOSIS: 1. 28 weeks gestation. 2. Influenza complicating . DISCHARGE DIAGNOSES: 1. 28 weeks gestation. 2. Influenza complicating . DISPOSITION: The patient will finish the course of Tamiflu. She will rest as ordered, followup in the office in one week.
== END 2016-07-09 23:58 | disposition home or self-care (01) | DRG 781 ==
LOC: M PCU 11:42
PROVIDERS: ADMIT Specialist; ATTEND Specialist
DX: O99.513 Diseases of the respiratory system complicating pregnancy, third trimester (principal); J45.901 Unspecified asthma with (acute) exacerbation; I47.2 Ventricular tachycardia; O99.333 Smoking (tobacco) complicating pregnancy, third trimester; O10.913 Unspecified pre-existing hypertension complicating pregnancy, third trimester; J11.1 Influenza due to unidentified influenza virus with other respiratory manifestations; Z3A.28 28 weeks gestation of pregnancy; F17.210 Nicotine dependence, cigarettes, uncomplicated; O99.413 Diseases of the circulatory system complicating pregnancy, third trimester; O21.0 Mild hyperemesis gravidarum; O99.89 Other specified diseases and conditions complicating pregnancy, childbirth and the puerperium; R19.7 Diarrhea, unspecified

== ENCOUNTER → 2016-07-17 | Outpatient (REF) | payer MEDICARE, MEDICAID | LOC: M LAB REF 10:00 | PROVIDERS: ATTEND Physician Assistant | DX: J02.9 Acute pharyngitis, unspecified (principal) ==

== ENCOUNTER → 2016-08-03 | Outpatient (CLI) | payer MEDICARE, MEDICAID | LOC: M LAB 13:09 | PROVIDERS: ATTEND Internal Medicine Cardiovascular Disease | DX: I47.1 Supraventricular tachycardia (principal) ==

== ENCOUNTER 2016-08-05 19:14 | Outpatient (CLI) | payer MEDICARE, MEDICAID ==
[~2016-08-05] VITALS: Ht 180.3 cm; Wt 122.0 kg
[2016-08-05 19:35] VITALS: BP 130/70
== END 2016-08-05 20:35 | disposition home or self-care (01) ==
LOC: M LDO 19:14
PROVIDERS: ATTEND Advanced Practice Midwife
DX: O99.513 Diseases of the respiratory system complicating pregnancy, third trimester (principal); J40 Bronchitis, not specified as acute or chronic; Z3A.32 32 weeks gestation of pregnancy

== ENCOUNTER → 2016-08-30 | Outpatient (CLI) | payer MEDICARE, MEDICAID ==
--- NOTE | 2016-08-30 13:43 | REP ---
Limited obstetric sonography: History: Hypertension 35 weeks 3 days. Findings: Scanning demonstrates a viable single intrauterine gestation in a cephalic lie. A posterior fundal placenta is seen without evidence of previa, grade 1. heart rate is recorded at 150 beats per minute. Closed cervical length, viewed transabdominally is 3.5 cm. Biophysical profile score is eight out of a possible eight. Amniotic fluid is subjectively normal. DONA is normal at 11.0 cm. The SD ratio umbilical cord artery by Doppler is normal at 2.12. Signed by Kishor June MD 08/30/2016 01:34 P
== END ==
LOC: M RAD 12:44
PROVIDERS: ATTEND Advanced Practice Midwife
DX: O10.011 Pre-existing essential hypertension complicating pregnancy, first trimester (principal)

== ENCOUNTER → 2016-09-02 | Outpatient (CLI) | payer MEDICARE, MEDICAID ==
--- NOTE | 2016-09-02 13:32 | REP ---
Obstetric ultrasound, third trimester, for preeclampsia: Studies performed for growth. There is a single intrauterine gestation in a vertex presentation. Iliac chain activity is observed by the ticker wirer. heart rate is not recorded. The placenta is posterior. There is no placenta previa. Amniotic fluid volume subjectively is normal. Amniotic fluid index is 11.2, 0.717 - 24.9). Gestational age by today's measurements is 35 weeks 1 day with an GEMA of 10/06/2016. Gestational age according to the first ultrasound during this gestation is 35-week 6 days and by LMP 37 weeks 1 day. weight is 2770 grams (5 pounds 15 ounces). This is the 45th percentile for 35 6 weeks and 30 percentile for 37 weeks 1 day. Umbilical artery Doppler assessment: SD ratio 2.54 (2.00 - 3.00). Resistive index 0.61 (0.51 - 0.75). Diastolic flow velocity is 19.3 cm/sec. This is in the normal range. I note than on prior studies anatomy is normal with the exception that the cardiac right ventricular outflow tract was never adequately demonstrated. However, on the current study there is no request for evaluation of anatomy. No further assessment is requested or performed at this time. Signed by Jarrod Garg MD 09/02/2016 01:23 P
== END ==
LOC: M SMT 11:04
PROVIDERS: ATTEND Advanced Practice Midwife
DX: O11.3 Pre-existing hypertension with pre-eclampsia, third trimester (principal); O10.913 Unspecified pre-existing hypertension complicating pregnancy, third trimester

== ENCOUNTER → 2016-09-05 | Outpatient (REF) | payer MEDICARE, MEDICAID | LOC: M LAB REF 16:54 | PROVIDERS: ATTEND Advanced Practice Midwife | DX: Z34.83 Encounter for supervision of other normal pregnancy, third trimester (principal) ==

== ENCOUNTER → 2016-09-12 | Outpatient (CLI) | payer MEDICARE, MEDICAID ==
[~2016-09-12] MED LIST changes: +ACET30TAB PO; +AMOX875T2 PO; +IBUP800T23 PO
--- NOTE | 2016-09-12 16:07 | REP ---
BIOPHYSICAL PROFILE: HISTORY: Biophysical profile. COMPARISON: 08/30/2016. A single intrauterine is present in vertex presentation. heart rate is 178 beats per minute. Amniotic fluid index is 18.9. Biophysical profile is 8 out of 8. The placenta is posterior. There is no placenta previa or abruption. The amniotic fluid volume appears normal. S/D ratio is 1.85. PSV is 36.1 cm/s. Cervix length is 3.1 cm. IMPRESSION: The biophysical profile is 8 out of 8. Signed by Dhruv Piña MD 09/12/2016 04:09 P
== END ==
LOC: M RAD 13:28
PROVIDERS: ATTEND Advanced Practice Midwife
DX: O10.011 Pre-existing essential hypertension complicating pregnancy, first trimester (principal)

== ENCOUNTER 2016-09-14 07:46 | Inpatient (IN) | payer MEDICARE, MEDICAID ==
[2016-09-14] VITALS (30 sets, daily range): BP systolic 100–152; BP diastolic 52–90
[~2016-09-14] VITALS: Ht 180.3 cm; Wt 127.0 kg
[~2016-09-14 07:46] MED LIST changes: -ACET30TAB PO; -AMOX875T2 PO; -IBUP800T23 PO
[2016-09-14] MEDS ORDERED: AMOX875T2 PO (08:00)
--- NOTE | 2016-09-14 08:25 | HPE ---
DATE OF ADMISSION: 09/14/2016 HISTORY: 26-year-old, 1, para 0 female at 38 and 0/7 weeks gestation by last menstrual period and consistent with 6-week ultrasound. Estimated date of confinement (EDC) 09/28/2016, who presents for labor induction. Indication for induction is chronic hypertension and maternal supraventricular tachycardia. COURSE: The patient initiated care at 8-weeks gestation on 02/19/2016. Her first trimester blood pressure was 138/74. Weight is 270 pounds. Early care was significant for a severe bout of influenza, which required hospitalization. She was seeing Dr. Swartz for tachycardia with resting pulse rates between 120 and 140 beats per minute. She was initially tried on beta elaina; however, had side effects and had to stop them. She had normal antepartum testing for growth and surveillance for hypertension, as well as maternal tachycardia. MEDICAL HISTORY: 1. Supraventricular tachycardia. 2. Chronic hypertension. 3. Bipolar disorder with schizophrenic features. SURGICAL HISTORY: 1. Tonsillectomy. 2. Appendectomy. 3. Diagnostic laparoscopy for endometriosis. 4. Excision of breast cyst. ALLERGIES: 1. PERCOCET 2. GABAPENTIN SOCIAL HISTORY: Father of the baby is involved with the patient. Smokes occasional cigarettes during . She denies alcohol or drug use during . FAMILY HISTORY: Noncontributory. PHYSICAL EXAMINATION: Blood pressure 132/80, weight 289. She is in no apparent distress. HEAD AND NECK EXAM: Normal. LUNGS: Clear. HEART: Regular rate and rhythm. ABDOMEN: Nontender. Gravid. heart tones category 1. EXTREMITIES: Nontender. Contractions irregular. LABORATORY DATA: Blood type 0 positive, Rubella immune, RPR nonreactive, hepatitis B and C negative. HIV negative. Diabetes screening 124. ASSESSMENT: 26-year-old 1 at 38 and 0/7 weeks gestation by last menstrual period and 6-week ultrasound who presents for labor induction with the indication of chronic hypertension and supraventricular tachycardia. The patient was admitted on 09/14/2016. The risks of induction were discussed.
[2016-09-14] MEDS: miSOPROStol 50 MCG 1/2 TAB (S0191) PO SCH ×3 (08:52→17:04)
[2016-09-14 08:54] LABS: MEAN CORPUSCULAR HEMOGLOBIN 30.9 pg (27.0-33.0); MEAN CORPUSCULAR HGB CONC 33.5 g/dl (32.0-36.5); MEAN CORPUSCULAR VOLUME 92.2 fl (80.0-96.0); RED CELL DISTRIBUTION WIDTH 13.8 % (11.5-14.5); WHITE BLOOD COUNT 15.6 K/mm3 (4.0-10.0)
[2016-09-14] MEDS ORDERED: PENICILLIN G POTASSIUM IV 5 MU in D5W MINI-BAG PLUS 100 ML IV STA (17:01)
[2016-09-14] MEDS: LR 1,000 ML IV SCH (21:13)
[2016-09-14] MEDS: PENICILLIN G POTASSIUM IV 2.5 MU in D5W 100 ML IV SCH (21:13)
[2016-09-14] MEDS ORDERED: OXYTOCIN DRIP 30 UNITS in APPROPRIATE DILUENT 1 EA IV SCH (21:15)
[2016-09-14] MEDS ORDERED: FENTANYL 2MCG/ML ROPIVACAINE 0.2% IN 0.9% NACL 200ML IVBAG As Ordered ONE (22:37)
[2016-09-15] VITALS (23 sets, daily range): BP systolic 119–148; BP diastolic 56–81
[2016-09-15] MEDS: PENICILLIN G POTASSIUM IV 2.5 MU in D5W 100 ML IV SCH ×5 (00:15→13:02)
[2016-09-15] MEDS ORDERED: guaiFENesin DM LIQ 10ML UD PO PRN ×2 (07:30→19:15)
[2016-09-15] MEDS: ALBUTEROL 90 MCG/ACT 8GM HFA INHALER INH PRN ×3 (07:30→16:03)
[2016-09-15] MEDS: LR 1,000 ML IV SCH (08:41)
[2016-09-15] MEDS: PRENATAL VITAMIN TAB PO SCH (09:00)
[2016-09-15] MEDS ORDERED: FENTANYL/ROPIVACAINE/NACL BAG 200 ML EPIDURAL SCH (13:30)
[2016-09-15] MEDS ORDERED: diphenhydrAMINE INJ 50MG/ML VIAL (J1200) IV PRN ×3 (13:30→20:30)
[2016-09-15] MEDS ORDERED: EPIDURAL/PCA KEYS XX PRN (13:30)
[2016-09-15] MEDS ORDERED: REFRIGERATOR IV KEYS XX PRN (13:30)
[2016-09-15] MEDS ORDERED: IBUPROFEN 600 MG TAB PO PRN (13:30)
[2016-09-15] MEDS ORDERED: LR 1,000 ML IV SCH ×3 (13:30→17:49)
[2016-09-15] MEDS ORDERED: NALOXONE INJ 0.4 MG/1 ML VIAL (J2310) IV PRN ×3 (13:30→16:27)
[2016-09-15] MEDS ORDERED: ePHEDrine SULFATE 25 MG/5 ML(5MG/ML) SYRINGE IV PRN (13:30)
[2016-09-15] MEDS ORDERED: EPIDURAL COMMENT XX SCH (13:30)
[2016-09-15] MEDS ORDERED: LACTATED RINGER'S 1000 ML IV PRN (13:30)
[2016-09-15] MEDS ORDERED: ONDANSETRON 4MG/2ML VIAL (J2405) IV PRN ×3 (13:30→17:45)
[2016-09-15] MEDS ORDERED: PENICILLIN G POTASSIUM IV 2.5 MU in D5W 100 ML IV SCH ×2 (15:29→17:00)
[2016-09-15] MEDS ORDERED: BICITRA 30ML SOLN UDC PO ONE (15:30)
[2016-09-15] MEDS ORDERED: MORPHINE PRES-FREE INJ 10 MG/10 ML VIAL (J2274) As Ordered ONE (16:07)
[2016-09-15] MEDS ORDERED: OXYTOCIN INJ 10 UNITS/ML VIAL (J2590) As Ordered ONE ×2 (16:09→16:56)
[2016-09-15] MEDS ORDERED: IBUP800T23 PO (16:25)
[2016-09-15] MEDS ORDERED: METOCLOPRAMIDE INJ 10MG/2ML VIAL (J2765) IV PRN ×2 (16:27→17:45)
[2016-09-15] MEDS ORDERED: ACET30TAB PO (16:27)
[2016-09-15] MEDS ORDERED: NALBUPHINE HCL 10 MG/ML AMP (J2300) IV PRN ×2 (16:27→17:45)
[2016-09-15] MEDS ORDERED: PHENYLephrine HCL 500 MCG/5 ML (100MCG/ML) SYRINGE (J2370) As Ordered ONE ×2 (16:40→17:09)
[2016-09-15] MEDS ORDERED: ONDANSETRON 4MG/2ML VIAL (J2405) As Ordered ONE (17:09)
[2016-09-15] MEDS ORDERED: KETOROLAC 60 MG/2 ML VIAL (J1885) As Ordered ONE (17:09)
[2016-09-15] MEDS ORDERED: fentaNYL 100 MCG/2 ML INJECTION (J3010) IV PRN (17:45)
[2016-09-15] MEDS ORDERED: MEPERIDINE INJ 25 MG/ML VIAL (J2175) IV PRN (17:45)
[2016-09-15] MEDS ORDERED: HYDROmorphone HCL 1 MG/ML SYRINGE (J1170) IV PRN (17:45)
[2016-09-15] MEDS ORDERED: NORCO, ANEXSIA 5/325MG TABLET (HYDROcodone/ACETAMINOPHEN) PO PRN ×2 (17:45→18:00)
[2016-09-15] MEDS ORDERED: MEASLES,MUMPS,RUBELLA VACCINE INJ (MMR-II) (90707) SC SCH (18:00)
[2016-09-15] MEDS ORDERED: OXYTOCIN DRIP 30 UNITS in APPROPRIATE DILUENT 1 EA IV ONE (18:00)
[2016-09-15] MEDS ORDERED: MOM 30ML SUSPENSION UDC PO PRN (18:00)
[2016-09-15] MEDS ORDERED: RHOGAM 300 MCG (1500 IU) INJ (J2790) IM SCH (18:00)
[2016-09-15] MEDS ORDERED: DOCUSATE SODIUM 100 MG CAP PO PRN (18:00)
--- NOTE | 2016-09-15 18:22 | RO ---
DATE OF PROCEDURE: 09/15/2016 PREOPERATIVE DIAGNOSES: Arrest of dilation. POSTOPERATIVE DIAGNOSES: Arrest of dilation. PROCEDURE: Primary lower transverse section. SURGEON: Brittnee Briggs MD ASSISTANTS: Adore Awad CNM and Mick Danielson, Third Year Medical Student ANESTHESIA: Spinal. ESTIMATED BLOOD LOSS: 350 mL. INTRAVENOUS FLUIDS: 1800 mL of lactated Ringer's solution. URINE OUTPUT: 400 mL. OPERATIVE FINDINGS: Live born female . scores 8 and 8. Weight was 5 pounds 15 ounces, 2696 grams. PREOPERATIVE ANTIBIOTICS: 2 grams of Ancef. DESCRIPTION OF PROCEDURE: After informed consent was obtained and written consent was reviewed, the patient was brought to the operating room where her epidural was pulled and spinal anesthesia was placed. She was then placed in the lithotomy position with a left lateral tilt. She was then prepped and draped in a normal sterile fashion. A time-out in the operating room was then performed, identifying the patient, procedure to be performed as well as drug allergies. Anesthesia was tested and deemed to be adequate. A Pfannenstiel skin incision was then made and carried down to the underlying rectus fascia. The fascia was scored, and this incision was extended bilaterally. The fascia was then dissected off the underlying rectus muscles both superiorly and inferiorly. The rectus muscles were in the midline. The peritoneum was then entered. The vesicouterine peritoneum was then identified and was tented and excised to create a bladder flap. The bladder blade was then placed to retract back the bladder. A curvilinear incision was then made in the lower uterine segment. The uterine cavity was then entered. The head was brought to the level of the incision and delivered atraumatically, followed by delivery of shoulders and corpus. Cord was clamped times two and was cut. The was taken over to the warmer with a good cry. Cord blood was obtained. The placenta was then drained and delivered grossly intact. The uterus was then exteriorized and cleared of all clots and debris. The uterine incision was then closed in two layers using #0 Vicryl, first layer in a running locking fashion, followed by a second layer for imbrication in a running nonlocking fashion. The abdomen was then suctioned. The uterus was then returned in the patient's abdomen, uterine incision was inspected and was noted to be hemostatic. The anterior peritoneum was then reapproximated with #3-0 Vicryl, the rectus muscles were reapproximated with #3-0 Vicryl. The fascia was then closed with #0 Vicryl in a running nonlocking fashion. The subcutaneous tissue was then irrigated and suctioned. The subcutaneous tissue was then reapproximated using #3-0 Vicryl. Several subdermal stitches were placed with #3-0 Vicryl and the skin was closed with #4-0 Monocryl in a subcuticular fashion. The incision was then cleaned and dry. Mastisol was applied above and below the incision. Steri-Strips were applied over the incision, and the incision was dressed. The patient was then taken to recovery in stable condition. Counts were correct. The couple has decided to name their daughter
[2016-09-15] MEDS ORDERED: ALBUTEROL 90 MCG/ACT 8GM HFA INHALER INH PRN (19:15)
[2016-09-15] MEDS ORDERED: diphenhydrAMINE 25 MG CAP PO PRN (20:30)
[2016-09-15] MEDS: KETOROLAC 30 MG/ML VIAL (J1885) IV SCH (23:33)
[2016-09-16 01:48] VITALS: BP 139/76
[2016-09-16 05:41] VITALS: BP 134/74
[2016-09-16] MEDS: KETOROLAC 30 MG/ML VIAL (J1885) IV SCH ×2 (07:16→12:11)
[2016-09-16] MEDS: PRENATAL VITAMIN TAB PO SCH (08:10)
[2016-09-16 08:33] LABS: MEAN CORPUSCULAR HEMOGLOBIN 31.2 pg (27.0-33.0); MEAN CORPUSCULAR HGB CONC 34.3 g/dl (32.0-36.5); MEAN CORPUSCULAR VOLUME 90.9 fl (80.0-96.0); RED CELL DISTRIBUTION WIDTH 13.7 % (11.5-14.5); WHITE BLOOD COUNT 12.5 K/mm3 (4.0-10.0)
[2016-09-16] MEDS ORDERED: ADACEL/BOOSTRIX VACCINE (DIPHTH/PERTUSS/ACELL/TETANUS)0.5ML SYR (90715) IM ONE (09:00)
[2016-09-16 10:10] VITALS: BP 138/82
[2016-09-16] MEDS: NORCO, ANEXSIA 5/325MG TABLET (HYDROcodone/ACETAMINOPHEN) PO PRN ×2 (13:54→21:03)
[2016-09-16 14:15] VITALS: BP 141/76
[2016-09-16] MEDS: IBUPROFEN 800 MG TAB PO SCH ×2 (15:18→23:32)
[2016-09-16 17:50] VITALS: BP 137/76
[2016-09-16 21:43] VITALS: BP 156/83
[2016-09-16] MEDS: busPIRone 5 MG TAB PO SCH (23:32)
[2016-09-17 05:52] VITALS: BP 138/69
[2016-09-17] MEDS: IBUPROFEN 800 MG TAB PO SCH (07:00)
[2016-09-17] MEDS: busPIRone 5 MG TAB PO SCH (08:02)
[2016-09-17] MEDS: PRENATAL VITAMIN TAB PO SCH (08:02)
[2016-09-17] MEDS ORDERED: COLA100C3 PO (10:19)
[2016-09-17] MEDS ORDERED: BENA25CA4 PO (10:19)
[2016-09-17] MEDS ORDERED: ALBU17IN2 INH (10:19)
[2016-09-17] MEDS ORDERED: MILKSUS PO (10:19)
[2016-09-17] MEDS ORDERED: BUSP1TAB PO (10:19)
--- NOTE | 2016-09-18 06:00 | DSES ---
DATE OF ADMISSION: 09/14/2016 DATE OF DISCHARGE: 09/17/2016 DISCHARGE DIAGNOSIS: Primary lower transverse section for arrested dilation. DISCHARGE CONDITION: Stable. PROCEDURES PERFORMED WHILE IN THE HOSPITAL: 1. Epidural. 2. Spinal anesthesia. 3. Primary section. HISTORY AND HOSPITAL COURSE: This patient is a 26-year-old 1, who presented at 38 weeks 0 days estimated gestational age by last menstrual period confirmed by 6-week ultrasound for induction of labor secondary to chronic hypertension. Induction was initiated. She progressed to approximately 5 cm, remained there for several hours without any further progression in her labor and was consented for primary lower transverse section. Her section was unremarkable, uncomplicated, productive of a liveborn female , scores 8 and 8, weight 5 pounds 15 ounces or 2696 grams. Patient did well postoperatively. By postoperative day number 2 had met all discharge criteria and was discharged home in stable condition. PHYSICAL EXAMINATION: On date of discharge. VITAL SIGNS: Stable. She was afebrile. GENERAL APPEARANCE: Well appearing, no acute distress. ABDOMEN: Soft, nondistended, nontender. Her fundus was below umbilicus. Her incision was clean and dry and intact, well approximated, not erythemic. EXTREMITIES: Negative for calf tenderness. DISCHARGE MEDICATIONS: - Tylenol No. 3 - ibuprofen DISCHARGE INSTRUCTIONS: 1. She was instructed to followup in 2 weeks for incision check. 2. To remain on pelvic rest for 6 weeks. 3. Report severe pain, heavy vaginal bleeding, fever, incision issues.
== END 2016-09-17 13:25 | disposition home or self-care (01) | DRG 765 ==
LOC: M LDI 07:46 → M OBS 09-15 19:00
PROVIDERS: ADMIT Specialist; ATTEND Specialist
PROC: 3E0D7GC Introduction of Other Therapeutic Substance into Mouth and Pharynx, Via Natural or Artificial Opening (ICD-10-PCS; 2016-09-14)
PROC: 10D00Z1 Extraction of Products of Conception, Low, Open Approach (ICD-10-PCS; principal; 2016-09-15 16:48)
DX: O10.02 Pre-existing essential hypertension complicating childbirth (principal); O99.42 Diseases of the circulatory system complicating childbirth; I47.1 Supraventricular tachycardia; Z37.0 Single live birth; O62.0 Primary inadequate contractions; Z3A.38 38 weeks gestation of pregnancy; Z88.5 Allergy status to narcotic agent; Z88.8 Allergy status to other drugs, medicaments and biological substances; Z72.0 Tobacco use; Z79.899 Other long term (current) drug therapy

== ENCOUNTER → 2016-10-26 | Outpatient (CLI) | payer MEDICARE, MEDICAID ==
[~2016-10-26] MED LIST changes: +ACET30TAB PO; +ALBU17IN2 INH; +AMOX875T2 PO; +BENA25CA4 PO; +BUSP1TAB PO; +COLA100C3 PO; +IBUP800T23 PO; +MILKSUS PO
--- NOTE | 2016-10-26 12:32 | REP ---
RIGHT WRIST, FOUR VIEWS: HISTORY: Pain. There is no acute fracture or dislocation. The joint spaces are normal in appearance. IMPRESSION: There is no acute fracture or dislocation. Signed by Dhruv Piña MD 10/26/2016 12:33 P
== END ==
LOC: M WUC 11:30
PROVIDERS: ATTEND Physician Assistant
DX: M79.641 Pain in right hand (principal)

== ENCOUNTER → 2016-11-25 | Outpatient (REF) | payer MEDICARE, MEDICAID ==
[~2016-11-25] MED LIST changes: +ALPR1TAB3; -COLA100C3 PO; +COLA100C5 PO; +DEXE1TAB2; +IBUP1TAB7 PO; -IBUP800T23 PO; +LATU120T; +OXCA300T; +RISP3TAB3; +ZOFR4TAB3 PO
== END ==
LOC: M LAB REF 17:21
PROVIDERS: ATTEND Advanced Practice Midwife
DX: Z11.3 Encounter for screening for infections with a predominantly sexual mode of transmission (principal); Z12.4 Encounter for screening for malignant neoplasm of cervix

== ENCOUNTER → 2017-01-04 | Outpatient (REF) | payer MEDICARE, MEDICAID | LOC: M LAB REF 11:07 | PROVIDERS: ATTEND Advanced Practice Midwife | DX: R10.30 Lower abdominal pain, unspecified (principal) ==

== ENCOUNTER 2017-01-10 13:31 | Emergency (ER) | payer MEDICARE, MEDICAID ==
[~2017-01-10] VITALS: Ht 180.3 cm; Wt 104.5 kg
[~2017-01-10 13:31] MED LIST changes: -ALPR1TAB3; -DEXE1TAB2; -LATU120T; -OXCA300T; -RISP3TAB3; -ZOFR4TAB3 PO
[2017-01-10] MEDS ORDERED: ALPR1TAB3 (13:50)
[2017-01-10] MEDS ORDERED: DEXE1TAB2 (13:50)
[2017-01-10] MEDS ORDERED: OXCA300T (13:50)
[2017-01-10] MEDS ORDERED: RISP3TAB3 (13:50)
[2017-01-10] MEDS ORDERED: LATU120T (13:50)
[2017-01-10] MEDS ORDERED: ONDANSETRON 4 MG ORAL DISINTEGRATING TAB (S0181) PO ONE (15:15)
[2017-01-10] MEDS ORDERED: NORCO, ANEXSIA 5/325MG TABLET (HYDROcodone/ACETAMINOPHEN) PO ONE (15:15)
[2017-01-10 15:37] LABS: CONTROL LINE UCG INT CTR LINE PRESENT
[2017-01-10 15:39] LABS: BASO % 0.4 % (0.0-1.0); EOS # 0.4 K/mm3 (0.0-0.50); EOS % 3.7 % (0.0-3.0); LARGE UNSTAINED CELL # 0.2 K/mm3 (0.0-0.4); LARGE UNSTAINED CELL % 2.2 % (0.0-4.0); LYMPH # 2.4 K/mm3 (1.5-6.5); LYMPH % 24.6 % (24.0-44.0); MEAN CORPUSCULAR HEMOGLOBIN 31.7 pg (27.0-33.0); MEAN CORPUSCULAR HGB CONC 35.1 g/dl (32.0-36.5); MEAN CORPUSCULAR VOLUME 90.4 fl (80.0-96.0); MONO # 0.6 K/mm3 (0.0-0.8); MONO % 6.6 % (0.0-5.0); NEUTROPHILS % 62.5 % (36.0-66.0); PLATELET COUNT, AUTOMATED 350 k/mm3 (150-450); RED CELL DISTRIBUTION WIDTH 13.4 % (11.5-14.5); WHITE BLOOD COUNT 9.7 K/mm3 (4.0-10.0)
[2017-01-10 15:49] LABS: ALBUMIN 3.8 GM/DL (3.2-5.2); ALKALINE PHOSPHATASE 97 U/L (45-117); ALT/SGPT 36 U/L (12-78); AMYLASE 33 U/L (25-115); ANION GAP 10 MEQ/L (8-16); AST/SGOT 22 U/L (15-37); BILIRUBIN,DIRECT < 0.1 MG/DL (0.0-0.2); BILIRUBIN,TOTAL 0.2 MG/DL (0.2-1.0); BLOOD UREA NITROGEN 13 MG/DL (7-18); CARBON DIOXIDE LEVEL 23 MEQ/L (21-32); CHLORIDE LEVEL 110 MEQ/L (98-107); CREATININE FOR GFR 0.68 MG/DL (0.55-1.02); GLOMERULAR FILTRATION RATE > 60.0 (>60); GLUCOSE, FASTING 83 MG/DL (70-105); POTASSIUM SERUM 4.2 MEQ/L (3.5-5.1); SODIUM LEVEL 143 MEQ/L (136-145); TOTAL PROTEIN 7.6 GM/DL (6.4-8.2)
--- NOTE | 2017-01-10 15:51 | REP ---
Right upper quadrant sonography: History: Right upper quadrant pain. No comparison imaging. Findings: Scanning through the right upper quadrant of the abdomen demonstrates a normal sized thin-walled gallbladder without evidence of stone or polyp. Common bile duct is normal measuring 0.7 cm in diameter. There is evidence of fatty infiltration. No focal liver lesion is seen. The pancreas is obscured by abdominal gas. There is no evidence of ascites or right renal abnormality. The right kidney measures 12.2 x 5.6 x 6.5 cm. Impression: Evidence of fatty infiltration of the liver. CBD 7 mm, at the upper range of normal. Pancreas is obscured by abdominal gas. Otherwise negative. Signed by Kishor June MD 01/10/2017 05:20 P
[2017-01-10] MEDS ORDERED: ZOFR4TAB3 PO (16:04)
[2017-01-10 16:09] VITALS: BP 141/78
== END 2017-01-10 16:13 | disposition home or self-care (01) ==
LOC: M ED 13:31
DX: R10.11 Right upper quadrant pain (principal); I10 Essential (primary) hypertension; Z72.0 Tobacco use

== ENCOUNTER 2017-04-28 14:51 | Emergency (ER) | payer MEDICARE, MEDICAID ==
[~2017-04-28] VITALS: Ht 180.3 cm; Wt 109.1 kg
[~2017-04-28 14:51] MED LIST changes: +ALPR1TAB3; +DEXE1TAB2; +LATU120T; +OXCA300T; +RISP3TAB3; +ZOFR4TAB3 PO
[2017-04-28] MEDS ORDERED: TYLE325T5 PO (15:17)
--- NOTE | 2017-04-28 16:44 | REP ---
Pelvic ultrasound for evaluation of IUD. The patient reportedly had a Mirena IUD placed approximate for months ago and has had pain and spotting for the past week. Comparison 12/06/2014. Transabdominal, endovaginal and Doppler ultrasound assessment are performed. The uterus is anteverted and normal size measuring 8.9 x 3.8 x 4.9 cm. The endometrium measures 2 mm thickness and is not thickened. The IUD is positioned in the lower uterine segment and is not in the fundus or body of the uterus. There are a few small calcifications in the junctional zone. There is a small volume of fluid in the endometrial canal. The right ovary measures 3.7 x 2.6 x 2.0 cm. There is no dominant right ovarian mass or cyst. There is vascular flow in right ovary with the Doppler resistive index of the intraparenchymal arteries measuring 0.44. The left ovary is normal size measuring 3.6 x 2.8 x 2.3 cm. There is no dominant left ovarian mass or cyst. There is a small volume of free fluid in the left adnexa. There is vascular flow in the left ovary with the Doppler resistive index of the intra or intimal arteries measuring 0.57. Impression: The IUD is positioned in the lower uterine segment center of the fundus and body of the uterus. There is a small volume of free fluid in the endometrial canal. There are small calcifications in the junctional zone. Small volume of free fluid in the left adnexa. Signed by Jarrod Garg MD 04/28/2017 04:35 P
[2017-04-28 17:57] VITALS: BP 128/60
[2017-04-28 18:05] LABS: CONTROL LINE UCG INT CTR LINE PRESENT
[2017-04-28 18:14] LABS: MUCUS, URINE RFX SMALL (NEGATIVE); SQUAM EPITHELIAL CELL UR AURFX 0 /HPF (0-6)
== END 2017-04-28 18:03 | disposition home or self-care (01) ==
LOC: M ED 14:51
DX: N93.8 Other specified abnormal uterine and vaginal bleeding (principal); F41.9 Anxiety disorder, unspecified; F33.9 Major depressive disorder, recurrent, unspecified; Z97.5 Presence of (intrauterine) contraceptive device

== ENCOUNTER → 2017-06-29 | Outpatient (REF) | payer MEDICARE, MEDICAID ==
[2017-07-05 08:07] LABS: HPV HYBRID CAPTURE II Negative (Negative)
== END ==
LOC: M SFHCWAGY 15:06
DX: Z01.419 Encounter for gynecological examination (general) (routine) without abnormal findings (principal); Z11.59 Encounter for screening for other viral diseases; R87.620 Atypical squamous cells of undetermined significance on cytologic smear of vagina (ASC-US)
CPT/HCPCS: G0123

== ENCOUNTER 2017-10-15 08:01 | Emergency (ER) | payer MEDICARE, MEDICAID | END 2017-10-15 09:30 | disposition home or self-care (01) | LOC: M ED 08:01 | DX: S63.521A Sprain of radiocarpal joint of right wrist, initial encounter (principal); W10.9XXA Fall (on) (from) unspecified stairs and steps, initial encounter; Y92.099 Unspecified place in other non-institutional residence as the place of occurrence of the external cause; Y93.89 Activity, other specified; Y99.9 Unspecified external cause status; Z72.0 Tobacco use; Z79.3 Long term (current) use of hormonal contraceptives; Z79.899 Other long term (current) drug therapy; Z91.040 Latex allergy status; Z88.8 Allergy status to other drugs, medicaments and biological substances | CPT/HCPCS: 73110 ==

== ENCOUNTER 2017-11-22 10:28 | Emergency (ER) | payer MEDICARE, MEDICAID ==
[2017-11-22 12:25] LABS: KETONE, URINE AUTO RFX NEGATIVE (NEGATIVE); LEUKOCYTE ESTERASE UR AUTO RFX NEGATIVE (NEGATIVE); MUCUS, URINE RFX SMALL (NEGATIVE); NITRITE, URINE AUTO RFX NEGATIVE (NEGATIVE); RBC, URINE AUTO RFX 2 /HPF (0-3); SPECIFIC GRAVITY UR AUTO RFX 1.023 (1.002-1.035); SQUAM EPITHELIAL CELL UR AURFX 0 /HPF (0-6); WBC, URINE AUTO RFX 0 /HPF (0-3)
[2017-11-22 12:49] LABS: CONTROL LINE UCG INT CTR LINE PRESENT; URINE PREG TEST NEGATIVE (NEGATIVE)
[2017-11-22] MEDS: NORCO, ANEXSIA 5/325MG TABLET (HYDROcodone/ACETAMINOPHEN) PO (13:50)
== END 2017-11-22 13:57 | disposition home or self-care (01) ==
LOC: M ED 13:57
DX: N83.202 Unspecified ovarian cyst, left side (principal); R11.0 Nausea; I10 Essential (primary) hypertension; Z87.42 Personal history of other diseases of the female genital tract; J45.909 Unspecified asthma, uncomplicated; R91.1 Solitary pulmonary nodule; F31.9 Bipolar disorder, unspecified; F60.0 Paranoid personality disorder; F41.9 Anxiety disorder, unspecified; Z88.8 Allergy status to other drugs, medicaments and biological substances; Z91.040 Latex allergy status
CPT/HCPCS: 76856

== ENCOUNTER 2018-01-17 21:49 | Emergency (ER) | payer MEDICARE, MEDICAID ==
[2018-01-17] MEDS ORDERED: NS 1,000 ML IV (23:15)
== END 2018-01-17 23:15 | disposition left against medical advice (07) ==
LOC: M ED 21:49
DX: R07.9 Chest pain, unspecified (principal); R00.2 Palpitations; R94.31 Abnormal electrocardiogram [ECG] [EKG]; F17.200 Nicotine dependence, unspecified, uncomplicated; Z82.49 Family history of ischemic heart disease and other diseases of the circulatory system; Z86.79 Personal history of other diseases of the circulatory system; Z88.8 Allergy status to other drugs, medicaments and biological substances; Z91.040 Latex allergy status; Z79.899 Other long term (current) drug therapy
CPT/HCPCS: 93005

== ENCOUNTER 2018-01-23 20:31 | Emergency (ER) | payer MEDICARE, MEDICAID ==
[2018-01-23] MEDS: NS 1,000 ML IV (21:07)
[2018-01-23 21:18] LABS: BASO # 0.1 10^3/uL (0.0-0.2); BASO % 0.5 % (0.0-1.0); EOS # 0.4 10^3/uL (0.0-0.50); EOS % 2.9 % (0.0-3.0); HEMATOCRIT 41.5 % (36.0-47.0); HEMOGLOBIN 14.3 g/dl (12.0-15.5); IMMATURE GRANULOCYTE % 0.5 % (0-3.0); LYMPH # 3.7 10^3/uL (1.5-6.5); LYMPH % 29.6 % (24.0-44.0); MEAN CORPUSCULAR HEMOGLOBIN 31.2 pg (27.0-33.0); MEAN CORPUSCULAR HGB CONC 34.5 g/dl (32.0-36.5); MEAN CORPUSCULAR VOLUME 90.6 fl (80.0-96.0); MONO # 1.2 10^3/uL (0.0-0.8); MONO % 9.8 % (0.0-5.0); NEUTROPHILS # 7.1 10^3/uL (1.8-7.7); NEUTROPHILS % 56.7 % (36.0-66.0); PLATELET COUNT, AUTOMATED 317 10^3/uL (150-450); RED BLOOD COUNT 4.58 10^6/uL (4.00-5.40); RED CELL DISTRIBUTION WIDTH 12.3 % (11.5-14.5); WHITE BLOOD COUNT 12.6 10^3/uL (4.0-10.0)
[2018-01-23 21:30] LABS: KETONE, URINE AUTO RFX NEGATIVE (NEGATIVE); LEUKOCYTE ESTERASE UR AUTO RFX NEGATIVE (NEGATIVE); NITRITE, URINE AUTO RFX NEGATIVE (NEGATIVE); RBC, URINE AUTO RFX 2 /HPF (0-3); SPECIFIC GRAVITY UR AUTO RFX 1.013 (1.002-1.035); SQUAM EPITHELIAL CELL UR AURFX 2 /HPF (0-6); WBC, URINE AUTO RFX 0 /HPF (0-3)
[2018-01-23 21:41] LABS: HCG, SERUM QUANTITATIVE 130 MIU/ML
== END 2018-01-23 23:11 | disposition home or self-care (01) ==
LOC: M ED 20:31
DX: Z32.01 Encounter for pregnancy test, result positive (principal); R10.2 Pelvic and perineal pain; I10 Essential (primary) hypertension; J45.909 Unspecified asthma, uncomplicated; F41.9 Anxiety disorder, unspecified; F31.9 Bipolar disorder, unspecified; F20.9 Schizophrenia, unspecified; R51 Headache; Z87.891 Personal history of nicotine dependence; Z88.8 Allergy status to other drugs, medicaments and biological substances; Z91.040 Latex allergy status
CPT/HCPCS: 76801

== ENCOUNTER → 2018-01-25 | Outpatient (CLI) | payer MEDICARE, MEDICAID ==
[2018-01-25 15:59] LABS: HCG, SERUM QUANTITATIVE 250 MIU/ML
== END ==
LOC: M LAB 14:53
DX: O99.89 Other specified diseases and conditions complicating pregnancy, childbirth and the puerperium (principal); R10.32 Left lower quadrant pain; Z3A.00 Weeks of gestation of pregnancy not specified
CPT/HCPCS: 84702

== ENCOUNTER → 2018-02-01 | Outpatient (CLI) | payer MEDICARE, MEDICAID ==
[2018-02-01 17:06] LABS: HCG, SERUM QUANTITATIVE 4496 MIU/ML
== END ==
LOC: M LAB 15:40
DX: N91.2 Amenorrhea, unspecified (principal)
CPT/HCPCS: 84702

== ENCOUNTER → 2018-04-17 | Outpatient (CLI) | payer MEDICARE, MEDICAID ==
[2018-04-17 19:14] LABS: ALT/SGPT 12 U/L (12-78); AST/SGOT 10 U/L (7-37); BILIRUBIN,TOTAL 0.1 MG/DL (0.2-1.0); GLOMERULAR FILTRATION RATE > 60.0 (>60); LDH LACTATE DEHYDROGENASE 149 U/L (84-246); URIC ACID 3.5 MG/DL (2.6-6.0)
[2018-04-17 19:18] LABS: BASO % 0.2 % (0.0-1.0); EOS # 0.2 10^3/uL (0.0-0.50); EOS % 1.5 % (0.0-3.0); HEMATOCRIT 35.4 % (36.0-47.0); HEMOGLOBIN 11.8 g/dl (12.0-15.5); IMMATURE GRANULOCYTE % 0.7 % (0-3.0); LYMPH # 1.9 10^3/uL (1.5-6.5); LYMPH % 15.6 % (24.0-44.0); MEAN CORPUSCULAR HEMOGLOBIN 31.5 pg (27.0-33.0); MEAN CORPUSCULAR HGB CONC 33.3 g/dl (32.0-36.5); MEAN CORPUSCULAR VOLUME 94.4 fl (80.0-96.0); NEUTROPHILS # 9.2 10^3/uL (1.8-7.7); PLATELET COUNT, AUTOMATED 272 10^3/uL (150-450); RED BLOOD COUNT 3.75 10^6/uL (4.00-5.40); RED CELL DISTRIBUTION WIDTH 12.3 % (11.5-14.5); WHITE BLOOD COUNT 12.5 10^3/uL (4.0-10.0)
[2018-04-17 21:30] LABS: CHLAMYDIA DNA AMPLIFICATION NEGATIVE (NEGATIVE); GC DNA AMPLIFICATION NEGATIVE (NEGATIVE)
[2018-04-18 11:04] LABS: RUBELLA IgG QUALITATIVE IMMUNE (IMMUNE)
[2018-04-18 11:05] LABS: HBsAg Prenatal NEGATIVE (NEGATIVE)
[2018-04-18 11:31] LABS: HEPATITIS C VIRUS ABY INDEX 0.1 INDEX (<0.8)
[2018-04-18 11:32] LABS: HIV 1&2 SCREEN CENTAUR NEGATIVE (NEGATIVE)
== END ==
LOC: M SMT 14:57
DX: Z36.89 Encounter for other specified antenatal screening (principal)
CPT/HCPCS: 84460

== ENCOUNTER → 2018-04-19 | Outpatient (REF) | payer MEDICARE, MEDICAID ==
[2018-04-20 19:23] LABS: CREATININE, SERUM 0.5 MG/DL (0.6-1.0); TOTAL VOLUME, URINE 1550 ML
[2018-04-20 19:53] LABS: CREATININE 24 HOUR, URINE 1875.5 MG/24HR (600-1800); CREATININE CLEARANCE, URINE 260.5 ML/MIN (75-115)
== END ==
LOC: M LAB REF 10:42
DX: R03.0 Elevated blood-pressure reading, without diagnosis of hypertension (principal)
CPT/HCPCS: 82575

== ENCOUNTER 2018-04-25 13:33 | Emergency (ER) | payer MEDICARE, MEDICAID ==
[2018-04-25] MEDS: LIDOCAINE 2% W/EPIN INJ 20ML **PRES FREE INJ (16:45)
== END 2018-04-25 17:05 | disposition home or self-care (01) ==
LOC: M ED 13:33
DX: L02.31 Cutaneous abscess of buttock (principal); I10 Essential (primary) hypertension; F31.9 Bipolar disorder, unspecified; Z88.8 Allergy status to other drugs, medicaments and biological substances; Z91.040 Latex allergy status
CPT/HCPCS: 10060

== ENCOUNTER → 2018-04-30 | Outpatient (CLI) | payer MEDICARE, MEDICAID ==
[~2018-04-30] MED LIST changes: +ADDE30CA3 PO; +DIAZ10TA2; +HYDR-3713 PO; -LORA10TA2 PO; +LORA10TA3 PO; +MILK12002 PO; -MILKSUS PO; +NUVAMIS2; -OXCA300T; +OXCA300T14; +TYLE325T5 PO; +ZOFR4TAB14 PO; -ZOFR4TAB3 PO; +prenatal vitamin PO
--- NOTE | 2018-04-30 13:35 | REP ---
Obstetric sonography: History: Supervision of for anatomy. Findings: Scanning through the gravid uterus demonstrates a viable single intrauterine gestation in the Foot[place] breech lie. motion is observed and heart rate is recorded at 153 beats per minute. An anterior grade 1 placenta is seen without evidence of previa or abruption. Amniotic fluid is subjectively normal. Closed cervical length is 4.8 cm. No extrauterine abnormalities observed. Exam quality is inhibited by maternal body habitus. Face and profile, spine, and lower extremities are less than optimally seen as a result. The following additional anatomic structures are identified and felt to be sonographically unremarkable: cranium, choroid plexus, cavum, cerebellum and posterior fossa, lungs, four-chamber heart with left and right ventricular outflow tract views, diaphragm, left-sided stomach, abdominal wall cord insertion, three-vessel umbilical cord, kidneys and bladder, upper extremities. Biometry chart: BPD 3.8 cm 17 weeks 5 days Head circumference 14.9 cm 18 weeks 0 days Abdominal circumference is 12.4 cm 18 weeks 0 days Femur length 2.8 cm 18 weeks 3 days Humeral length 2.7 cm 18 weeks 5 days Cerebellar diameter 1.8 cm 18 weeks 1 day HC/AC ratio normal 1.21, cephalic index normal 0.69, estimated weight 227 grams, 0 pounds 8 ounces, 57th percentile for 17 weeks 6 days. Impression: Viable single intrauterine gestation at the 18 weeks 0 days by today's composite sonographic criteria. GEMA by today's sonography October 01, 2018. anatomic survey is less than complete as above. Electronically Signed by Kishor June MD 04/30/2018 08:03 P
== END ==
LOC: M SMT 09:32
PROVIDERS: ATTEND Advanced Practice Midwife
DX: Z36.89 Encounter for other specified antenatal screening (principal); Z3A.18 18 weeks gestation of pregnancy

== ENCOUNTER → 2018-05-04 | Outpatient (REF) | payer MEDICARE, MEDICAID ==
[~2018-05-04] MED LIST changes: +MILK120011 PO; -MILK12002 PO
[2018-05-04 17:57] LABS: TOTAL PROTEIN,RANDOM URINE 21.1 MG/DL (0.0-12.0)
== END ==
LOC: M LAB REF 16:51
PROVIDERS: ATTEND Advanced Practice Midwife
DX: Z34.82 Encounter for supervision of other normal pregnancy, second trimester (principal)

== ENCOUNTER → 2018-05-18 | Outpatient (CLI) | payer MEDICARE, MEDICAID ==
--- NOTE | 2018-05-18 17:05 | REP ---
REASON: Followup anatomy. The prior examination of 04/30/2018 did not optimally visualize the spine, the lower extremities, and the facial features. Multiple ultrasonographic images of the gravid uterus show a single living intrauterine gestation in the footling breech presentation. Doppler interrogation of the heart shows a heart rate of 141 beats per minute. The placenta is anterior and not low lying. The subjective aminotic fluid volume is within normal limits. The cervix measures 4.4 cm in length and it is closed. Evaluation of the maternal adnexal spaces showed no gross abnormalities. BPD 4.7 cm = 20 weeks 2 days HC 18.5 cm = 20 weeks 6 days AC 15.8 cm = 21 weeks 0 days FL 3.4 cm = 20 weeks 5 days Estimated weight is 378 grams which is at the 60th percentile for a 20 week 3 day gestational age. The facial features were again suboptimally visualized. The spine and lower extremities were visualized and again suboptimally. IMPRESSION: Single living intrauterine gestation as described above with an estimated gestational age of 20 weeks 4 days via composite criteria and an estimated date of delivery of 10/01/2018 by today's exam. No anomalies were detected, however I recommend a followup examination once again, to visualize those structures not optimally visualized today. Electronically Signed by Jaron Robles DO 05/21/2018 05:25 P
== END ==
LOC: M SMT 13:33
PROVIDERS: ATTEND Advanced Practice Midwife
DX: Z34.82 Encounter for supervision of other normal pregnancy, second trimester (principal); Z3A.20 20 weeks gestation of pregnancy

== ENCOUNTER → 2018-07-04 | Outpatient (CLI) | payer MEDICARE, MEDICAID ==
--- NOTE | 2018-07-04 14:44 | REP ---
FOLLOWUP OB ULTRASOUND: 07/04/2018. Clinical history: Incomplete anatomy screen, supervision of second trimester . The facial features, spine and lower extremities have not been optimally imaged on the two previous studies due to position and body habitus. Comparison: 05/18/2018, 04/30/2018. Today's study shows a single intrauterine gestation in vertex position. An anterior grade 2 placenta without previa or abruption. Amniotic fluid volume is visually normal. There is a closed 3.1 cm long cervix. biometry: BPD 6.9 cm 27 weeks 5 daysHC 25.8 cm 28 weeksAC 22.8 cm 27 weeks 1 dayFL 5.2 cm 27 weeks 4 days. This gives average ultrasound age 27 weeks 2 days with EDC 10/01/2018, by initial ultrasound and LMP EDC 10/02/2018. Estimated weight 1072 grams or 2 pounds 5 ounces is 50th percentile for this dating. Anatomy screen shows heart rate 141. Cranial vault, lateral ventricles, choroid plexus, thalami, cavum septum pellucidum, cerebellum, cisterna magna, face and profile views, lungs and four-chamber heart were unremarkable today. The ventricular outflow tracts, have been previously seen and clear. diaphragm and stomach bubble are unremarkable. The cord insertion has previously been seen. The three vessel cord, kidneys and bladder and the upper lower extremities are all unremarkable. Spine has been previously cleared. Impression: 1. Single intrauterine gestation in vertex position with closed 3.1 cm long cervix, visually normal amniotic fluid volume and an anterior grade 2 placenta without previa abruption. heart rate 141 and regular. 2. Size and dates show normal interval growth. 3. No visible anomalies. The anatomy exam should be considered complete after today's examination. Electronically Signed by Fortunato Lincoln MD 07/04/2018 09:36 P
== END ==
LOC: M SMT 09:46
PROVIDERS: ATTEND Advanced Practice Midwife
DX: Z34.82 Encounter for supervision of other normal pregnancy, second trimester (principal); Z36.2 Encounter for other antenatal screening follow-up; Z3A.27 27 weeks gestation of pregnancy

== ENCOUNTER → 2018-07-19 | Outpatient (CLI) | payer MEDICARE, MEDICAID ==
[2018-07-19 13:37] LABS: HEMATOCRIT 34.6 % (36.0-47.0); HEMOGLOBIN 11.6 g/dl (12.0-15.5); MEAN CORPUSCULAR HEMOGLOBIN 31.4 pg (27.0-33.0); MEAN CORPUSCULAR HGB CONC 33.5 g/dl (32.0-36.5); MEAN CORPUSCULAR VOLUME 93.8 fl (80.0-96.0); PLATELET COUNT, AUTOMATED 273 10^3/uL (150-450); RED BLOOD COUNT 3.69 10^6/uL (4.00-5.40); WHITE BLOOD COUNT 15.6 10^3/uL (4.0-10.0)
== END ==
LOC: M SMT 09:06
PROVIDERS: ATTEND Advanced Practice Midwife
DX: O34.219 Maternal care for unspecified type scar from previous cesarean delivery (principal); Z3A.00 Weeks of gestation of pregnancy not specified

== ENCOUNTER → 2018-08-13 | Outpatient (CLI) | payer MEDICARE, MEDICAID ==
--- NOTE | 2018-08-13 14:23 | REP ---
OB ULTRASOUND: Real-time sonographic evaluation of the gravid uterus is performed. There is a single living intrauterine gestation. Estimated gestational age 32 weeks 6 days, EDC 10/02/2018. Today's measurements indicate appropriate growth. BPD 87 mm = 35 weeks 0 days, 81st percentile HC 315 mm = 35 weeks 3 days, 87th percentile AC 294 mm = 33 weeks 3 days, 57th percentile Femur length 62 mm = 32 weeks 4 days, 45th percentile HC/AC ratio 1.07 within normal range. Estimated weight 2210 grams, 56th percentile. Cervix is closed and measures 3.5 cm in length. heart rate 144 beats per minute. Amniotic fluid within normal limits, DONA 12.7 within normal range of 8.3-24.5. S/D ratio 2.59 within normal range. RI 0.61 within normal range. Visualized anatomy today includes upper lip, four chamber heart, ventricular outflow tracts, stomach, cord insertion, three vessel cord, kidneys, and bladder which are all grossly unremarkable. position vertex. Placenta anterior and grade 2 with no previa or abruption. IMPRESSION: Appropriate growth as above. Electronically Signed by Jarrod Aguirre MD 08/13/2018 04:34 P
== END ==
LOC: M RAD 12:33
PROVIDERS: ATTEND Obstetrics & Gynecology
DX: O26.843 Uterine size-date discrepancy, third trimester (principal); Z36.89 Encounter for other specified antenatal screening; Z3A.32 32 weeks gestation of pregnancy

== ENCOUNTER 2018-08-22 16:15 | Outpatient (CLI) | payer MEDICARE, MEDICAID ==
[~2018-08-22] VITALS: Ht 180.3 cm; Wt 131.3 kg
[~2018-08-22 16:15] MED LIST changes: -/QUET10TA OR; +ACET-716 PO; -ACET30TAB PO; +INDE1CAP5 PO; -PROP PO; +SERO1TAB OR
[2018-08-22] MEDS ORDERED: MAPA500T2 PO (16:45)
[2018-08-22 16:54] VITALS: BP 124/56
[2018-08-22] MEDS ORDERED: ONDANSETRON 4 MG ORAL DISINTEGRATING TAB (Q0162 PER 1MG) PO PRN (17:15)
[2018-08-22] MEDS ORDERED: METOCLOPRAMIDE INJ 10MG/2ML VIAL (J2765) IV ONE (17:15)
[2018-08-22 17:41] LABS: HEMATOCRIT 32.5 % (36.0-47.0); HEMOGLOBIN 10.9 g/dl (12.0-15.5); MEAN CORPUSCULAR HEMOGLOBIN 31.5 pg (27.0-33.0); MEAN CORPUSCULAR HGB CONC 33.5 g/dl (32.0-36.5); MEAN CORPUSCULAR VOLUME 93.9 fl (80.0-96.0); PLATELET COUNT, AUTOMATED 232 10^3/uL (150-450); RED BLOOD COUNT 3.46 10^6/uL (4.00-5.40); WHITE BLOOD COUNT 13.5 10^3/uL (4.0-10.0)
[2018-08-22 17:48] VITALS: BP 132/60
[2018-08-22 17:59] VITALS: BP 138/61
[2018-08-22 18:08] LABS: ALT/SGPT 12 U/L (12-78); BILIRUBIN,TOTAL 0.1 MG/DL (0.2-1.0); GLOMERULAR FILTRATION RATE > 60.0 (>60); LDH LACTATE DEHYDROGENASE 126 U/L (84-246); URIC ACID 3.3 MG/DL (2.6-6.0)
[2018-08-22 18:38] LABS: CREATININE,RANDOM URINE 78.7 MG/DL; TOTAL PROTEIN,RANDOM URINE 10.4 MG/DL (0.0-12.0)
[2018-08-22 18:51] VITALS: BP 132/68
[2018-08-22 19:00] VITALS: BP 126/65
[2018-08-22 19:50] VITALS: BP 138/66
--- NOTE | 2018-08-23 23:12 | IPN ---
DATE: 08/22/2018 SUBJECTIVE: Sangita is a 28-year-old, 2, para 1-0-0-1, at 34-1/7 weeks gestation, estimated date of confinement (EDC) of 10/02/2017 based on last menstrual period and confirmed by first trimester ultrasound. She presents to labor and delivery for some lab work and monitoring due to an elevated blood pressure in the office with complaint of headache that was not resolved with Tylenol after 3 hours. She does report an active fetus. She denies vaginal bleeding or leakage of fluid and does report an occasional cramp/contraction. She reports a history of migraine headaches and that she has not taking any prescription medications throughout her . care was initiated at [facility] in the first trimester. course complicated by history of supraventricular tachycardia (SVT), Cartia XT, history of chronic hypertension in the last , and a prior section. PAST MEDICAL HISTORY: SVT, hypertension, asthma, childhood varicella. SURGERIES: section, tonsillectomy, appendectomy, breast cyst removal, and laparoscopic surgery. FAMILY HISTORY: Diabetes, hypertension, heart disease, lupus, asthma. SOCIAL HISTORY: The patient is single; however, her partner is at bedside and supportive. She is a nonsmoker. Denies alcohol and drug use currently during . Prior tobacco use prepregnancy as well as reported marijuana use prepregnancy. She denies any history of sexually transmitted infections and denies history of abuse, physical, sexual, and emotional. ALLERGIES: GABAPENTIN and OXYCODONE. CURRENT MEDICATIONS: - vitamin - Tylenol as needed OBJECTIVE: Upon arrival, the patient is alert and oriented times three. She does appear as if she does not feel well. Her temperature is 100.4, pulse 103, respirations 20. Blood pressure is 124/56, 132/60, 138/61, 126/65. heart rate currently at this time about 120, moderate variability, positive accelerations; no decelerations observed. It is difficult to trace the heart rate due to maternal body habitus and her inability to lay in one position for more than a couple minutes. There are contractions occasionally. Sterile vaginal exam deferred. CBC: White count 13.5, hemoglobin 10.9, hematocrit 32.5, platelet 232. Uric acid 3.3, AST 12, ALT 12, LDH 126. Spot urine normal at 0.13. ASSESSMENT: Intrauterine at 34-1/7 weeks. heart rate category 1. Headache. PLAN: The patient did received Reglan 10 mg IV. She was unable to receive any further Tylenol due to the recent administration at home. She does report that the headache has decreased from of 5 to a 2. She has requested to be discharged to home several times since her arrival to labor and delivery. She has declined medication for nausea. She has had a prescription e-prescribed to her pharmacy for Fioricet for migraine headaches. I did review signs and symptoms of labor, kick counts, danger signs of pre-eclampsia, and worsening condition. I reviewed access to care. The patient is to keep her next scheduled appointment. I reviewed risks, benefits, and alternatives to being discharged to home as well as staying as outpatient overnight at the hospital. All of the patient's questions have been answered, and she is requesting discharge home.
== END 2018-08-22 20:00 | disposition home or self-care (01) ==
LOC: M LDO 16:15
PROVIDERS: ATTEND Advanced Practice Midwife
DX: O26.893 Other specified pregnancy related conditions, third trimester (principal); R03.0 Elevated blood-pressure reading, without diagnosis of hypertension; R51 Headache; R50.9 Fever, unspecified; Z3A.34 34 weeks gestation of pregnancy
CPT/HCPCS: 36415; 59025; 82247; 82565; 82570; 83615; 84156; 84450; 84460; 84550; 85027; 96374; J2765

== ENCOUNTER 2018-09-06 16:38 | Outpatient (CLI) | payer MEDICARE, MEDICAID ==
[~2018-09-06] VITALS: Ht 180.3 cm; Wt 133.3 kg
[~2018-09-06 16:38] MED LIST changes: -OXYC1TAB23 PO
[2018-09-06 17:07] VITALS: BP 132/64
[2018-09-06 17:23] VITALS: BP 131/62
[2018-09-06 17:38] VITALS: BP 130/62
[2018-09-06 17:49] LABS: HEMATOCRIT 35.3 % (36.0-47.0); HEMOGLOBIN 11.8 g/dl (12.0-15.5); MEAN CORPUSCULAR HEMOGLOBIN 31.3 pg (27.0-33.0); MEAN CORPUSCULAR HGB CONC 33.4 g/dl (32.0-36.5); MEAN CORPUSCULAR VOLUME 93.6 fl (80.0-96.0); PLATELET COUNT, AUTOMATED 241 10^3/uL (150-450); RED BLOOD COUNT 3.77 10^6/uL (4.00-5.40)
[2018-09-06 17:53] VITALS: BP 128/62
[2018-09-06 18:14] LABS: CREATININE,RANDOM URINE 85.4 MG/DL
[2018-09-06 18:17] LABS: ALBUMIN 2.8 GM/DL (3.2-5.2); ALT/SGPT 11 U/L (12-78); BILIRUBIN,TOTAL 0.2 MG/DL (0.2-1.0); BLOOD UREA NITROGEN 9 MG/DL (7-18); CALCIUM LEVEL 8.5 MG/DL (8.5-10.1); CARBON DIOXIDE LEVEL 21 MEQ/L (21-32); CHLORIDE LEVEL 109 MEQ/L (98-107); CREATININE FOR GFR 0.39 MG/DL (0.55-1.30); GLOMERULAR FILTRATION RATE > 60.0 (>60); GLUCOSE, FASTING 62 MG/DL (70-100); LDH LACTATE DEHYDROGENASE 159 U/L (84-246); POTASSIUM SERUM 3.7 MEQ/L (3.5-5.1); SODIUM LEVEL 140 MEQ/L (136-145); TOTAL PROTEIN 6.4 GM/DL (6.4-8.2); URIC ACID 3.8 MG/DL (2.6-6.0)
[2018-09-08] MEDS ORDERED: OXYC1TAB23 PO (16:22)
[2018-09-10] MEDS ORDERED: OXYC1TAB23 PO (08:01)
== END 2018-09-06 19:36 | disposition home or self-care (01) ==
LOC: M LDO 16:38
PROVIDERS: ATTEND Obstetrics & Gynecology
DX: Z34.83 Encounter for supervision of other normal pregnancy, third trimester (principal)

== ENCOUNTER → 2018-09-06 | Outpatient (REF) | payer MEDICARE, MEDICAID ==
[~2018-09-06] MED LIST changes: +MAPA500T2 PO; +OXYC1TAB23 PO
--- NOTE | 2018-09-06 19:37 | NUR ---
L&D triage 28-year-old G2, P1, 001 at 36 weeks +2 days gestation. Presents from the office for further monitoring. She had a appointment today and had elevated blood pressures. She has a history of chronic hypertension. Complaining of intermittent headaches. Currently without a headache. Denies any visual changes, right upper quadrant pain, shortness breath or chest pain. She reports regular movement. Denies vaginal bleeding, loss of fluid, or uterine contractions. PMH: Chronic hypertension, SVT SH: Term LTCS 1, tonsillectomy, appendectomy, cyst removed from breast/benign, laparoscopy Meds: Esgic, vitamins Allergies: Gabapentin, oxycodone OB: September 2016, 38 weeks, induction of labor, given by arrest at 3 cm. LTCS, uncomplicated [employer]: No dysplasia, no STI Family history: Diabetes, hypertension, heart disease, lupus, asthma O: Serial blood pressures all normotensive, normal heart rate, afebrile Heart regular rate and rhythm. No murmurs, gallops, rubs Lungs clear to auscultation bilateral Abdomen soft, nontender, nondistended, uterine fundus consistent with dates and nontender Extremities nonedematous, nontender, normal DTRs EFM: Reactive, normal baseline, moderate variability, positive accelerations and no decelerations [place]: Irregular, rare contractions / uterine irritability Ultrasound limited: Cephalic presentation, MVP = 5.9 cm Recent growth scan, 56th percentile on 08/13 Labs within normal limits, see [employer]. protein/creatinine ratio 0.17 A/P: Chronic hypertension at 36 weeks +2 days, history of prior low transverse section. Plan is for scheduling repeat low-transverse section at 38 weeks or sooner as needed. Patient is deciding to forego a trial of labor after . She was originally planning for a TOLAC if she arrived in active spontaneous labor. She will be tentatively scheduled for 38+ weeks / 09/18/[address] Briggs per her request. -Routine preeclampsia precautions reviewed -Third trimester precautions reviewed -Return to office as scheduled. Patient has an appointment within the week. Ann Cuello DO
== END ==
LOC: M LAB REF 17:53
PROVIDERS: ATTEND Advanced Practice Midwife
DX: Z34.83 Encounter for supervision of other normal pregnancy, third trimester (principal)

== ENCOUNTER 2018-09-09 14:15 | Inpatient (IN) | payer MEDICARE, MEDICAID ==
[~2018-09-09] VITALS: Ht 180.3 cm; Wt 129.9 kg
[~2018-09-09 14:15] MED LIST changes: +OXYC1TAB23 PO
[2018-09-09 14:34] VITALS: BP 134/67
[2018-09-09] MEDS ORDERED: LACTATED RINGER'S 1000 ML IV STA (15:17)
[2018-09-09 15:29] LABS: HEMATOCRIT 34.8 % (36.0-47.0); HEMOGLOBIN 11.6 g/dl (12.0-15.5); MEAN CORPUSCULAR HEMOGLOBIN 31.3 pg (27.0-33.0); MEAN CORPUSCULAR HGB CONC 33.3 g/dl (32.0-36.5); MEAN CORPUSCULAR VOLUME 93.8 fl (80.0-96.0); PLATELET COUNT, AUTOMATED 226 10^3/uL (150-450); RED BLOOD COUNT 3.71 10^6/uL (4.00-5.40); WHITE BLOOD COUNT 13.2 10^3/uL (4.0-10.0)
[2018-09-09] MEDS ORDERED: BICITRA 30ML SOLN UDC PO ONE (15:30)
[2018-09-09] MEDS ORDERED: LR 1,000 ML IV SCH (15:30)
[2018-09-09 15:58] LABS: ALT/SGPT 13 U/L (12-78); BILIRUBIN,TOTAL 0.4 MG/DL (0.2-1.0); CREATININE FOR GFR 0.51 MG/DL (0.55-1.30); GLOMERULAR FILTRATION RATE > 60.0 (>60); LDH LACTATE DEHYDROGENASE 462 U/L (84-246); URIC ACID 4.4 MG/DL (2.6-6.0)
[2018-09-09 16:00] VITALS: BP 142/76
[2018-09-09] MEDS ORDERED: NALBUPHINE HCL 10 MG/ML AMP (J2300) IV PRN ×2 (16:27→18:00)
[2018-09-09] MEDS ORDERED: diphenhydrAMINE INJ 50MG/ML VIAL (J1200) IV PRN (16:27)
[2018-09-09] MEDS ORDERED: ONDANSETRON 4MG/2ML VIAL (J2405) IV PRN ×3 (16:27→18:00)
[2018-09-09] MEDS ORDERED: METOCLOPRAMIDE INJ 10MG/2ML VIAL (J2765) IV PRN ×3 (16:27→18:00)
[2018-09-09] MEDS ORDERED: NALOXONE INJ 0.4 MG/1 ML VIAL (J2310) IV PRN ×2 (16:27)
[2018-09-09] MEDS ORDERED: BUPIVACAINE/DEXTROSE 0.75% 2 ML AMP As Ordered ONE (16:38)
[2018-09-09] MEDS ORDERED: OXYTOCIN INJ 10 UNITS/ML VIAL (J2590) As Ordered ONE (16:38)
[2018-09-09] MEDS ORDERED: MORPHINE PRES-FREE INJ 10 MG/10 ML VIAL (J2274) As Ordered ONE (16:38)
[2018-09-09] MEDS ORDERED: PHENYLephrine HCL 500 MCG/5 ML (100MCG/ML) SYRINGE (J2370) As Ordered ONE (16:42)
[2018-09-09] MEDS ORDERED: KETOROLAC 60 MG/2 ML VIAL (J1885) As Ordered ONE (17:21)
[2018-09-09] MEDS ORDERED: RHOGAM 300 MCG (1500 IU) INJ (J2790) IM SCH (17:45)
[2018-09-09] MEDS ORDERED: PERCOCET 5MG/325MG TAB PO PRN ×3 (17:45→18:00)
[2018-09-09] MEDS ORDERED: MEASLES,MUMPS,RUBELLA VACCINE INJ (MMR-II) (90707) SC SCH (17:45)
[2018-09-09] MEDS ORDERED: KETOROLAC 30 MG/ML VIAL (J1885) IV PRN (18:00)
[2018-09-09] MEDS ORDERED: MEPERIDINE INJ 25 MG/ML VIAL (J2175) IV PRN (18:00)
[2018-09-09] MEDS ORDERED: fentaNYL 100 MCG/2 ML INJECTION (J3010) IV PRN (18:00)
[2018-09-09] MEDS ORDERED: OXYTOCIN 30 UNITS IN 0.9% NaCl 500ML IV BAG (J2590) As Ordered ONE ×3 (18:22→20:20)
[2018-09-09] MEDS: OXYTOCIN DRIP 30 UNITS in APPROPRIATE DILUENT 1 EA IV SCH ×3 (18:23→20:20)
[2018-09-09] MEDS ORDERED: PERCOCET 5MG/325MG TAB As Ordered ONE (19:11)
[2018-09-09] MEDS: LR 1,000 ML IV SCH (19:53)
[2018-09-09 20:45] VITALS: BP 132/71
[2018-09-09 21:15] VITALS: BP 133/77
[2018-09-09] MEDS: DOCUSATE SODIUM 100 MG CAP PO SCH (21:44)
[2018-09-09 21:45] VITALS: BP 133/63
[2018-09-09 22:45] VITALS: BP 138/67
[2018-09-10] MEDS: KETOROLAC 30 MG/ML VIAL (J1885) IV SCH ×3 (00:24→12:23)
[2018-09-10 01:47] VITALS: BP 133/63
[2018-09-10] MEDS: LR 1,000 ML IV SCH (02:00)
[2018-09-10 05:53] VITALS: BP 134/60
--- NOTE | 2018-09-10 06:16 | HPE ---
DATE OF ADMISSION: 09/09/2018 REASON FOR ADMISSION: Chronic hypertension with superimposed preeclampsia. HISTORY OF PRESENT ILLNESS: Ms. Bartlett is a 28-year-old 2, para 1 who presents at 36 weeks, 5 days estimated gestational age by her last menstrual period, confirmed by first trimester ultrasound with worsening severe headache. She reports that her headache started several days ago which initially responded with Reglan and Fioricet. She reports that last night she started to experience a headache that was not responsive to Fioricet and she took Percocet last night, as well as again this morning without any relief of her headache. She describes this headache is being unusual and with no improvement with Percocet. She denies any persistent visual changes or any abdominal pain. She reports active movement. She denies any vaginal bleeding or leakage of fluid. Her course has been remarkable for history of hypertension. She initiated care in her first trimester and has been appropriate throughout. Her blood pressures have been controlled without medications for approximately 34 weeks. On August 22 she presented with elevated blood pressures as well as intermittent headaches. PAST MEDICAL HISTORY: 1. Hypertension. 2. Supraventricular tachycardia (SVT). She has a history of taking Procardia for her SVT her. PAST SURGICAL HISTORY: 1. She has had a section. 2. Tonsillectomy. 3. Appendectomy. 4. Laparoscopy . 5. She had a breast biopsy. MEDICATIONS: - vitamins. ALLERGIES: She has allergies to GABAPENTIN and LATEX. OBSTETRICAL HISTORY: She is 2, para 1. She has had one section, that was also complicated by chronic hypertension. SOCIAL HISTORY: She denies any alcohol, tobacco or drug use during . PHYSICAL EXAMINATION: VITAL SIGNS: Currently stable. She is afebrile. She has a heart tracing with heart rate 140s, a moderate variability with accelerations, spontaneous accelerations, no contractions are noted on tocometer. LUNGS: Clear to auscultation bilaterally. CARDIOVASCULAR: Heart regular rate and rhythm. ABDOMEN: Her abdomen is gravid, nontender. Estimated weight (EFW) 3000 grams. LABORATORY DATA: Blood type is O+, antibody screen is negative. Rubella is immune. RPR is nonreactive. Hepatitis surface antigen negative, HIV is negative. Hep C is nonreactive, chlamydia and gonorrhea screens are negative. She had a 1-hour Glucola. ASSESSMENT: 1. Ms. Bartlett is a 28-year-old 2, para 1 at 36 weeks 5 days by last menstrual period, confirmed by first trimester ultrasound with chronic hypertension, now with superimposed preeclampsia based on severe features. 2. Reassuring status. 3. The patient has expressed satisfied parity with undesired fertility. 4. History of section. PLAN: 1. The plan is to admit to Labor and Delivery, CBC, RPR, type and screen, pre-eclamptic panel. . 2. The patient has been thoroughly counseled in regard to her diagnosis. I have discussed the plan to move towards delivery. She has a history of section and has expressed desire for repeat section. She has also expressed satisfied parity with undesired fertility, desiring sterilization. I have reviewed risks, benefits, as well as alternatives. She desires to proceed with section and bilateral tubal dilation. DAVID
[2018-09-10 06:54] LABS: HEMATOCRIT 30.7 % (36.0-47.0); HEMOGLOBIN 10.3 g/dl (12.0-15.5); MEAN CORPUSCULAR HEMOGLOBIN 31.6 pg (27.0-33.0); MEAN CORPUSCULAR HGB CONC 33.6 g/dl (32.0-36.5); MEAN CORPUSCULAR VOLUME 94.2 fl (80.0-96.0); PLATELET COUNT, AUTOMATED 200 10^3/uL (150-450); RED BLOOD COUNT 3.26 10^6/uL (4.00-5.40)
[2018-09-10] MEDS: DOCUSATE SODIUM 100 MG CAP PO SCH ×2 (07:53→20:32)
[2018-09-10] MEDS: PRENATAL VITAMINS CHEWABLE TABLET PO SCH (07:53)
--- NOTE | 2018-09-10 07:58 | NUR ---
POD#1 S: Doing well w/o complaints. Headache has resolved. No visual changes or abd pain. Pain well controlled. Tolerating reg diet. O: vss, AF Gen: well appearing abd: soft, appropriately tender incision: dressed ext: neg calf tenderness A/P: POD # 1 s/p repeat c/s with BTL- recovering in stable condition superimposed Pre-E- stable -cont routine postoperative care Brittnee Briggs MD
[2018-09-10] MEDS ORDERED: OXYC1TAB23 PO (08:01)
--- NOTE | 2018-09-10 09:01 | RO ---
DATE OF OPERATION: 09/09/2018 PREOPERATIVE DIAGNOSES: 1. Chronic hypertension with superimposed preeclampsia. 2. Satisfied parity with undesired fertility. 3. History of prior section. POSTOPERATIVE DIAGNOSES: 1. Chronic hypertension with superimposed preeclampsia. 2. Satisfied parity with undesired fertility. 3. History of prior section. PROCEDURE PERFORMED: Repeat section with bilateral tubal ligation using [place] method. SURGEON: Brittnee Briggs MD FACILITIES TECHNICIAN: Jarrod Sanchez MD ANESTHESIA: Spinal. ESTIMATED BLOOD LOSS: 500 mL. INTRAVENOUS FLUIDS 1 liter of Lactated Ringer's solution. URINE OUTPUT: 400 mL. PREOPERATIVE ANTIBIOTICS: 2 grams of Ancef. OPERATIVE FINDINGS: Liveborn female , scores of 7 and 8, weight was 2770 grams or 6 pounds 2 ounces. SPECIMENS: Bilateral segments of fallopian tube. DESCRIPTION OF OPERATION: After informed consent was obtained and written consent was reviewed, the patient brought to the operating room where spinal anesthesia was placed. She was then placed in lithotomy position with a left lateral tilt. Spaulding catheter was placed and set to gravity. She was then prepped and draped in a normal sterile fashion. A time out in the operating room was then performed identifying the patient, procedure to be performed, as well as drug allergies. Anesthesia was tested and deemed to be adequate status. A Pfannenstiel skin incision was made along the previous skin incision. This was carried down to the underlying rectus fascia. The fascia was scored and this incision was extended bilaterally. The fascia was then dissected off the underlying rectus muscles both superiorly and inferiorly. The rectus muscles were in the midline, the peritoneum was then entered sharply. The vesicouterine peritoneum was then identified, it was tented and excised to create a bladder flap. A Mobius retractor was then placed, and a curvilinear incision was then made in the lower uterine segment. This incision was extended bilaterally. Amniotomy was then performed productive of clear fluid. The head was brought to level the of the incision atraumatically and delivered along with shoulders and corpus. Cord was clamped times two and was cut and the was taken over to the warmer with good cry. Placenta was then removed and the uterus then exteriorized and cleared of all clots and debris. Uterine incision was then closed in two layers using #0 Vicryl first in a running locking fashion followed by a second layer for imbrication in a running nonlocking fashion. Next, attention was then turned towards the bilateral [place] tubal ligation. A window was created in the right mesosalpinx and this area was doubly ligated using #3-0 chromic and was excised with good hemostasis noted. In a similar fashion the left fallopian tube was placed on traction, a window was created in the mesosalpinx and this area was doubly ligated and the fallopian tube was transected with good hemostasis noted. The uterus was then returned to the patient's abdomen. Surgical sites with were inspected noted be hemostatic. The anterior peritoneum was reapproximated with #3-0 Vicryl. The rectus muscles were reapproximated #3-0 Vicryl, and the fascia was then closed with #0 Vicryl in running nonlocking fashion. The subcutaneous tissue was then irrigated and suctioned. Subcutaneous tissue was then reapproximated with #3-0 Vicryl. Several subdermal stitches were placed with #3-0 Vicryl, and the skin was closed with #4-0 in a subcuticular fashion. The incision was then cleaned and dried and was dressed. The patient was then taken to recovery in stable condition. Counts were correct. Dr. Sanchez, my surgical oncologist, played an essential role during the surgery. He assisted with delivery of the as well as wound identification, retraction, and wound closure. The couple decided to name their daughter Dawna.
[2018-09-10 10:00] VITALS: BP 115/56
[2018-09-10 14:00] VITALS: BP 125/61
[2018-09-10 18:00] VITALS: BP 130/61
[2018-09-10] MEDS: IBUPROFEN 800 MG TAB PO SCH (20:00)
[2018-09-10 22:00] VITALS: BP 137/73
[2018-09-11 02:00] VITALS: BP 126/62
[2018-09-11] MEDS: IBUPROFEN 800 MG TAB PO SCH (04:20)
[2018-09-11 06:00] VITALS: BP 129/65
[2018-09-11] MEDS ORDERED: IBUP80TA PO (07:21)
[2018-09-11] MEDS: DOCUSATE SODIUM 100 MG CAP PO SCH (07:44)
[2018-09-11] MEDS: PRENATAL VITAMINS CHEWABLE TABLET PO SCH (07:44)
== END 2018-09-11 10:50 | disposition home or self-care (01) | DRG 785 ==
LOC: M LDO 14:15 → M LDI 14:51 → M OBS 20:39
PROVIDERS: ADMIT Obstetrics & Gynecology; ATTEND Obstetrics & Gynecology
PROC: 0UB70ZZ Excision of Bilateral Fallopian Tubes, Open Approach (ICD-10-PCS; 2018-09-09)
PROC: 10D00Z1 Extraction of Products of Conception, Low, Open Approach (ICD-10-PCS; principal; 2018-09-09 16:37)
DX: O11.4 Pre-existing hypertension with pre-eclampsia, complicating childbirth (principal); Z3A.36 36 weeks gestation of pregnancy; O10.02 Pre-existing essential hypertension complicating childbirth; O34.211 Maternal care for low transverse scar from previous cesarean delivery; Z37.0 Single live birth; Z30.2 Encounter for sterilization

== ENCOUNTER → 2018-12-03 | Outpatient (CLI) | payer MEDICARE, MEDICAID ==
[~2018-12-03] MED LIST changes: +IBUP80TA PO
--- NOTE | 2018-12-03 15:53 | REP ---
Left foot four views : There is no fracture or dislocation. Mineralization and joint spaces are normal. There are no calcifications or foreign bodies. Impression: Negative left foot . Electronically Signed by Jarrod Garg MD 12/03/2018 03:45 P
== END ==
LOC: M RAD 15:23
PROVIDERS: ATTEND Physician Assistant Medical
DX: S99.922A Unspecified injury of left foot, initial encounter (principal); X58.XXXA Exposure to other specified factors, initial encounter; Y92.89 Other specified places as the place of occurrence of the external cause

== ENCOUNTER 2018-12-22 19:02 | Emergency (ER) | payer MEDICARE, MEDICAID ==
[~2018-12-22] VITALS: Ht 180.3 cm; Wt 113.6 kg
[2018-12-22] MEDS ORDERED: ACET-683 PO (19:10)
[2018-12-22] MEDS ORDERED: QUET1TAB8 PO (19:10)
[2018-12-22] MEDS ORDERED: TRIL1TAB PO (19:10)
[2018-12-22] MEDS ORDERED: NAPR-837 PO (19:57)
[2018-12-22] MEDS ORDERED: ROBA500T PO (19:57)
[2018-12-22] MEDS ORDERED: METHOCARBAMOL 750 MG TAB PO ONE (20:00)
[2018-12-22] MEDS ORDERED: NAPROXEN 250 MG TAB PO ONE (20:00)
[2018-12-22] MEDS ORDERED: LIDOCAINE 5% (LIDODERM) PATCH TD ONE (20:00)
[2018-12-22 20:15] VITALS: BP 128/70
[2018-12-23] MEDS ORDERED: **NOTE PATIENT COMMENT** MISC XX ONE (08:00)
== END 2018-12-22 20:40 | disposition home or self-care (01) ==
LOC: M ED 19:02
DX: S39.012A Strain of muscle, fascia and tendon of lower back, initial encounter (principal); X58.XXXA Exposure to other specified factors, initial encounter; Y92.89 Other specified places as the place of occurrence of the external cause; I10 Essential (primary) hypertension; F31.9 Bipolar disorder, unspecified; Z88.8 Allergy status to other drugs, medicaments and biological substances; Z91.040 Latex allergy status

== ENCOUNTER 2019-01-31 19:22 | Emergency (ER) | payer MEDICARE, MEDICAID ==
[~2019-01-31] VITALS: Ht 180.3 cm; Wt 113.6 kg
[~2019-01-31 19:22] MED LIST changes: +ACET-683 PO; +NAPR-837 PO; +QUET1TAB8 PO; +ROBA500T PO; +TRIL1TAB PO
[2019-01-31 19:57] LABS: BASO # 0.1 10^3/uL (0.0-0.2); BASO % 0.5 % (0.0-1.0); EOS # 0.4 10^3/uL (0.0-0.5); EOS % 3.5 % (0.0-3.0); LYMPH # 3.1 10^3/uL (1.5-5.0); LYMPH % 26.8 % (24.0-44.0); MEAN CORPUSCULAR HEMOGLOBIN 31.1 pg (27.0-33.0); MEAN CORPUSCULAR HGB CONC 34.1 g/dl (32.0-36.5); MEAN CORPUSCULAR VOLUME 91.1 fl (80.0-96.0); MONO # 1.3 10^3/uL (0.0-0.8); NEUTROPHILS # 6.6 10^3/uL (1.5-8.5); NEUTROPHILS % 57.8 % (36.0-66.0); PLATELET COUNT, AUTOMATED 304 10^3/uL (150-450); WHITE BLOOD COUNT 11.4 10^3/uL (4.0-10.0)
[2019-01-31 20:13] LABS: ALBUMIN 3.7 GM/DL (3.2-5.2); ALT/SGPT 28 U/L (12-78); BILIRUBIN,DIRECT < 0.1 MG/DL (0.0-0.2); BILIRUBIN,TOTAL 0.2 MG/DL (0.2-1.0); BLOOD UREA NITROGEN 17 MG/DL (7-18); CALCIUM LEVEL 9.6 MG/DL (8.5-10.1); CARBON DIOXIDE LEVEL 24 MEQ/L (21-32); CHLORIDE LEVEL 105 MEQ/L (98-107); GLOMERULAR FILTRATION RATE > 60.0 (>60); GLUCOSE, FASTING 99 MG/DL (70-100); LIPASE 80 U/L (73-393); POTASSIUM SERUM 4.2 MEQ/L (3.5-5.1); SODIUM LEVEL 141 MEQ/L (136-145)
[2019-01-31] MEDS ORDERED: ISOVUE-370 76% 100ML VIAL (Q9967) As Ordered ONE (20:24)
[2019-01-31] MEDS ORDERED: ONDANSETRON 4MG/2ML VIAL (J2405) IV ONE (20:30)
[2019-01-31] MEDS ORDERED: NS 1,000 ML IV ONE (20:30)
[2019-01-31 20:35] LABS: HCG, SERUM QUALITATIVE NEGATIVE (NEGATIVE)
--- NOTE | 2019-01-31 21:08 | REPVR ---
PROCEDURE INFORMATION: Exam: US Abdomen Limited, Right Upper Quadrant Exam date and time: 01/31/2019 8:43 PM Clinical history: 28 years old, female; Abdominal pain; Epigastric; Additional info: R side abd pain after pizza TECHNIQUE: Imaging protocol: Real-time ultrasound of the abdomen with image documentation. Examination was focused on the right upper quadrant. COMPARISON: GALLBLADDER US 01/10/2017 3:24 PM FINDINGS: Liver: The liver is diffusely echogenic relative to the right kidney, findings consistent with steatosis. Gallbladder: Normal gallbladder. Negative sonographic Mckeon's sign. Common bile duct: The common bile duct measures 5.5 mm. No mass or choledocholithiasis. Pancreas: Pancreas visualization limited due to overlying bowel gas. Right kidney: Right kidney measures 11.6 x 5.1 x 4.5 cm. IMPRESSION: 1. Hepatic steatosis. 2. Normal gallbladder. Negative sonographic Mckeon's sign. Electronically signed by: Albin Eden On 01/31/2019 21:08:12 PM
--- NOTE | 2019-01-31 21:12 | REPVR ---
PROCEDURE INFORMATION: Exam: CT Abdomen and Pelvis With Contrast Exam date and time: 01/31/2019 8:42 PM Clinical history: 28 years old, female; Abdominal pain; Generalized; Additional info: R abd pain, diffuse tender, elev wbc TECHNIQUE: Imaging protocol: Computed tomography of the abdomen and pelvis with intravenous contrast. Radiation optimization: All CT scans at this facility use at least one of these dose optimization techniques: automated exposure control; mA and/or kV adjustment per patient size (includes targeted exams where dose is matched to clinical indication); or iterative reconstruction. Contrast material: ISOVUE 370; Contrast volume: 100 ml; Contrast route: IV; COMPARISON: CT ABD PELVIS WITH CONTRAST 11/01/2014 10:23 AM FINDINGS: Liver: There is a diffuse decrease in hepatic parenchymal density, consistent with fatty infiltration. Hepatomegaly. Gallbladder and bile ducts: Normal. No calcified stones. No ductal dilation. Pancreas: Normal. No ductal dilation. Spleen: Borderline splenomegaly. Adrenals: Normal. No mass. Kidneys and ureters: Normal. No hydronephrosis. Stomach and bowel: Unremarkable. No obstruction. No mucosal thickening. Appendix: There has been an appendectomy. Intraperitoneal space: Unremarkable. No free air. No significant fluid collection. Vasculature: Unremarkable. No abdominal aortic aneurysm. Lymph nodes: Unremarkable. No enlarged lymph nodes. Bladder: Unremarkable as visualized. Reproductive: Unremarkable as visualized. Bones/joints: Degenerative changes L5-S1. Soft tissues: Small umbilical hernia. IMPRESSION: 1. There is a diffuse decrease in hepatic parenchymal density, consistent with fatty infiltration. Hepatomegaly. 2. No acute findings. Electronically signed by: Albin Eden On 01/31/2019 21:12:10 PM
[2019-01-31 21:36] VITALS: BP 145/74
== END 2019-01-31 21:42 | disposition home or self-care (01) ==
LOC: M ED 19:22
DX: R10.9 Unspecified abdominal pain (principal); R11.0 Nausea; I10 Essential (primary) hypertension; Z79.899 Other long term (current) drug therapy; Z88.8 Allergy status to other drugs, medicaments and biological substances; Z91.040 Latex allergy status; F17.210 Nicotine dependence, cigarettes, uncomplicated
CPT/HCPCS: 74177; 76705; 80048; 80076; 81001; 83690; 84703; 85025; 96374; 99284; J2405; Q9967

== ENCOUNTER 2019-04-10 00:32 | Emergency (ER) | payer MEDICARE, MEDICAID ==
[~2019-04-10] VITALS: Ht 180.3 cm; Wt 113.6 kg
[2019-04-10 00:33] VITALS: BP 142/79
[2019-04-10] MEDS ORDERED: CEFD1CAP8 (00:50)
[2019-04-10] MEDS ORDERED: LITH300T2 (00:50)
[2019-04-10] MEDS ORDERED: NEOM1SUS13 (00:50)
[2019-04-10] MEDS ORDERED: ALBU83IN (00:50)
[2019-04-10] MEDS ORDERED: PRED20TA (00:50)
== END 2019-04-10 01:08 | disposition left against medical advice (07) ==
LOC: M ED 00:32
DX: Z53.21 Procedure and treatment not carried out due to patient leaving prior to being seen by health care provider (principal)

== ENCOUNTER 2019-07-12 15:52 | Emergency (ER) | payer MEDICARE, MEDICAID ==
[~2019-07-12] VITALS: Ht 180.3 cm; Wt 122.3 kg
[~2019-07-12 15:52] MED LIST changes: +ALBU83IN; +CEFD1CAP8; +LITH300T2; -MONT10TA2 PO; +MONT10TA4 PO; +NEOM1SUS13; +PRED20TA; +QUET100T2 PO; -QUET1TAB8 PO
[2019-07-12] MEDS ORDERED: ADDE30CA3 (16:00)
[2019-07-12] MEDS ORDERED: SERT-138 (16:00)
[2019-07-12 17:12] VITALS: BP 133/85
[2019-07-12] MEDS ORDERED: KEFL500C17 PO (17:12)
== END 2019-07-12 17:35 | disposition home or self-care (01) ==
LOC: M ED 15:52
DX: N64.89 Other specified disorders of breast (principal); J45.909 Unspecified asthma, uncomplicated; I10 Essential (primary) hypertension; F31.9 Bipolar disorder, unspecified; R00.0 Tachycardia, unspecified; Z79.899 Other long term (current) drug therapy; Z88.8 Allergy status to other drugs, medicaments and biological substances; Z91.040 Latex allergy status; F17.210 Nicotine dependence, cigarettes, uncomplicated

== ENCOUNTER → 2019-12-08 | Emergency (ER) | payer MEDICARE, MEDICAID ==
[~2019-12-08] MED LIST changes: +ADDE30CA3; +KEFL500C17 PO; +SERT-138
== END | disposition left against medical advice (07) ==
LOC: M ED 19:00
DX: R09.89 Other specified symptoms and signs involving the circulatory and respiratory systems (principal); Z53.21 Procedure and treatment not carried out due to patient leaving prior to being seen by health care provider

== ENCOUNTER → 2021-11-29 | Outpatient (CLI) | payer MEDICARE, MEDICAID ==
[~2021-11-29] MED LIST changes: +ALBU2.5V10; -ALBU83IN; -CEFD1CAP8; +CEFD300C41; -MONT10TA4 PO; +MONT10TA97 PO; +RISP-10; -RISP3TAB3
[2021-11-29 12:31] LABS: ALBUMIN 3.9 GM/DL (3.2-5.2); BLOOD UREA NITROGEN 14 MG/DL (7-18); CALCIUM LEVEL 9.5 MG/DL (8.5-10.1); CARBON DIOXIDE LEVEL 22 MEQ/L (21-32); CHLORIDE LEVEL 111 MEQ/L (98-107); CREATININE FOR GFR 0.79 MG/DL (0.55-1.30); FREE T3 2.8 PG/ML (2.2-4.0); GLOMERULAR FILTRATION RATE > 60.0 (>60); GLUCOSE, FASTING 91 MG/DL (70-100); LITHIUM LEVEL < 0.20 MEQ/L (0.60-1.20); PHOSPHORUS LEVEL 3.2 MG/DL (2.5-4.9); POTASSIUM SERUM 4.4 MEQ/L (3.5-5.1); SODIUM LEVEL 140 MEQ/L (136-145); THYROXINE (T4) 7.1 UG/DL (4.5-12.0)
== END ==
LOC: M LAB 10:58
PROVIDERS: ATTEND Anesthesiology Pain Medicine
DX: Z79.899 Other long term (current) drug therapy (principal)

== ENCOUNTER → 2023-04-27 | Outpatient (REF) | payer MEDICARE, MEDICAID ==
[~2023-04-27] MED LIST changes: +CEFD1CAP9; -CEFD300C41; +ETON1VAG7; -NUVAMIS2
[2023-04-27 11:57] LABS: BASO # 0.1 10^3/uL (0.0-0.2); BASO % 0.6 % (0.0-1.0); EOS # 0.2 10^3/uL (0.0-0.5); EOS % 1.8 % (0.0-3.0); HEMATOCRIT 45.8 % (36.0-47.0); HEMOGLOBIN 15.4 g/dl (12.0-15.5); LYMPH # 2.8 10^3/uL (1.5-5.0); LYMPH % 27.9 % (24.0-44.0); MEAN CORPUSCULAR HEMOGLOBIN 31.3 pg (27.0-33.0); MEAN CORPUSCULAR HGB CONC 33.6 g/dl (32.0-36.5); MEAN CORPUSCULAR VOLUME 93.1 fl (80.0-96.0); MONO # 0.8 10^3/uL (0.0-0.8); MONO % 7.9 % (2.0-8.0); NEUTROPHILS # 6.1 10^3/uL (1.5-8.5); NEUTROPHILS % 61.5 % (36.0-66.0); PLATELET COUNT, AUTOMATED 279 10^3/uL (150-450); RED BLOOD COUNT 4.92 10^6/uL (4.00-5.40)
[2023-04-27 12:23] LABS: ALBUMIN 3.9 G/DL (3.2-5.2); ALKALINE PHOSPHATASE 91 U/L (46-116); ALT/SGPT 47 U/L (7.0-40); AST/SGOT 57 U/L (<34); BILIRUBIN,TOTAL 0.4 MG/DL (0.3-1.2); BLOOD UREA NITROGEN 13 MG/DL (9-23); CALCIUM LEVEL 10.4 MG/DL (8.5-10.1); CARBON DIOXIDE LEVEL 26 MMOL/L (20-31); CHLORIDE LEVEL 108 MMOL/L (98-107); CREATININE FOR GFR 0.66 MG/DL (0.55-1.30); GLOMERULAR FILTRATION RATE > 60.0 (>60); GLUCOSE, FASTING 113 MG/DL (60-100); POTASSIUM SERUM 4.6 MMOL/L (3.5-5.1); SODIUM LEVEL 140 MMOL/L (136-145); TOTAL PROTEIN 7.4 G/DL (5.7-8.2)
[2023-04-27 12:24] LABS: THYROID STIMULATING HORMONE 8.289 uIU/ML (0.55-4.78)
[2023-04-27 12:25] LABS: FREE T4 0.99 NG/DL (0.89-1.76)
[2023-04-27 12:27] LABS: HEMOGLOBIN A1c 5.8 % (4.0-6.0)
== END ==
LOC: M LAB REF 11:30
PROVIDERS: ATTEND Family Medicine Addiction Medicine
DX: R53.83 Other fatigue (principal); Z79.899 Other long term (current) drug therapy

== ENCOUNTER → 2023-07-07 | Outpatient (REF) | payer MEDICARE, MEDICAID ==
[2023-07-07 13:44] LABS: ALBUMIN 3.6 G/DL (3.2-5.2); ALKALINE PHOSPHATASE 92 U/L (46-116); ALT/SGPT 46 U/L (7.0-40); AST/SGOT 51 U/L (<34); BILIRUBIN,TOTAL 0.3 MG/DL (0.3-1.2); BLOOD UREA NITROGEN 12 MG/DL (9-23); CALCIUM LEVEL 9.2 MG/DL (8.5-10.1); CARBON DIOXIDE LEVEL 25 MMOL/L (20-31); CHLORIDE LEVEL 108 MMOL/L (98-107); CHOLESTEROL LEVEL 172 MG/DL (<200); CHOLESTEROL RISK RATIO 5.91 (<5); GLOMERULAR FILTRATION RATE > 60.0 (>60); GLUCOSE, FASTING 106 MG/DL (60-100); HDL CHOLESTEROL 29.1 MG/DL (>40); LDL CHOLESTEROL 89.1 MG/DL (<100); NON-HDL-C 142.9 MG/DL; POTASSIUM SERUM 4.5 MMOL/L (3.5-5.1); SODIUM LEVEL 138 MMOL/L (136-145); TOTAL PROTEIN 6.8 G/DL (5.7-8.2); TRIGLYCERIDES LEVEL 269 MG/DL (<150)
[2023-07-07 13:46] LABS: THYROID STIMULATING HORMONE 3.647 uIU/ML (0.55-4.78)
[2023-07-07 14:02] LABS: HEMOGLOBIN A1c 5.6 % (4.0-6.0)
== END ==
LOC: M LAB REF 13:08
PROVIDERS: ATTEND Family Medicine Addiction Medicine
DX: R73.9 Hyperglycemia, unspecified (principal); E03.9 Hypothyroidism, unspecified

== ENCOUNTER → 2023-08-10 | Outpatient (REF) | payer MEDICARE, MEDICAID ==
[~2023-08-10] MED LIST changes: -RISP-10; +RISP3TAB77
[2023-08-10 13:51] LABS: BASO # 0.1 10^3/uL (0.0-0.2); BASO % 0.6 % (0.0-1.0); EOS # 0.3 10^3/uL (0.0-0.5); HEMATOCRIT 46.5 % (36.0-47.0); HEMOGLOBIN 15.7 g/dl (12.0-15.5); LYMPH # 3.2 10^3/uL (1.5-5.0); LYMPH % 32.4 % (24.0-44.0); MEAN CORPUSCULAR HEMOGLOBIN 31.2 pg (27.0-33.0); MEAN CORPUSCULAR HGB CONC 33.8 g/dl (32.0-36.5); MEAN CORPUSCULAR VOLUME 92.3 fl (80.0-96.0); MONO # 0.9 10^3/uL (0.0-0.8); MONO % 8.7 % (2.0-8.0); NEUTROPHILS # 5.4 10^3/uL (1.5-8.5); PLATELET COUNT, AUTOMATED 299 10^3/uL (150-450); RED BLOOD COUNT 5.04 10^6/uL (4.00-5.40); WHITE BLOOD COUNT 9.8 10^3/uL (4.0-10.0)
[2023-08-10 14:28] LABS: ALBUMIN 4.1 G/DL (3.2-5.2); ALKALINE PHOSPHATASE 84 U/L (46-116); ALT/SGPT 42 U/L (7.0-40); AST/SGOT 61 U/L (<34); BILIRUBIN,TOTAL 0.4 MG/DL (0.3-1.2); BLOOD UREA NITROGEN 13 MG/DL (9-23); CALCIUM LEVEL 9.4 MG/DL (8.5-10.1); CARBON DIOXIDE LEVEL 23 MMOL/L (20-31); CHLORIDE LEVEL 109 MMOL/L (98-107); CREATININE FOR GFR 0.72 MG/DL (0.55-1.30); GLOMERULAR FILTRATION RATE > 60.0 (>60); GLUCOSE, FASTING 80 MG/DL (60-100); POTASSIUM SERUM 4.9 MMOL/L (3.5-5.1); SODIUM LEVEL 139 MMOL/L (136-145); TOTAL PROTEIN 7.3 G/DL (5.7-8.2)
[2023-08-10 14:50] LABS: HIV 1&2 SCREEN NEGATIVE (NEGATIVE)
[2023-08-10 14:57] LABS: HEPATITIS B CORE ANTIBODY IGM NEGATIVE (NEGATIVE); HEPATITIS C VIRUS ABY INDEX < 0.02 INDEX (<0.8)
== END ==
LOC: M LAB REF 12:58
PROVIDERS: ATTEND Family Medicine Addiction Medicine
DX: R16.0 Hepatomegaly, not elsewhere classified (principal)

== ENCOUNTER → 2023-11-27 | Outpatient (CLI) | payer MEDICARE, MEDICAID ==
[2023-11-27 15:36] LABS: BASO # 0.1 10^3/uL (0.0-0.2); BASO % 0.5 % (0.0-1.0); EOS # 0.3 10^3/uL (0.0-0.5); EOS % 2.8 % (0.0-3.0); HEMATOCRIT 49.3 % (36.0-47.0); HEMOGLOBIN 16.1 g/dl (12.0-15.5); LYMPH # 2.8 10^3/uL (1.5-5.0); MEAN CORPUSCULAR HEMOGLOBIN 31.2 pg (27.0-33.0); MEAN CORPUSCULAR HGB CONC 32.7 g/dl (32.0-36.5); MEAN CORPUSCULAR VOLUME 95.5 fl (80.0-96.0); MONO # 0.8 10^3/uL (0.0-0.8); NEUTROPHILS # 6.8 10^3/uL (1.5-8.5); NEUTROPHILS % 63.5 % (36.0-66.0); PLATELET COUNT, AUTOMATED 268 10^3/uL (150-450); RED BLOOD COUNT 5.16 10^6/uL (4.00-5.40); WHITE BLOOD COUNT 10.7 10^3/uL (4.0-10.0)
[2023-11-27 15:55] LABS: HEMOGLOBIN A1c 4.7 % (4.0-6.0)
[2023-11-27 16:03] LABS: ALBUMIN 3.9 G/DL (3.2-5.2); ALKALINE PHOSPHATASE 82 U/L (46-116); ALT/SGPT 25 U/L (7.0-40); AST/SGOT 20 U/L (<34); BILIRUBIN,TOTAL 0.3 MG/DL (0.3-1.2); BLOOD UREA NITROGEN 10 MG/DL (9-23); CALCIUM LEVEL 9.6 MG/DL (8.5-10.1); CARBON DIOXIDE LEVEL 24 MMOL/L (20-31); CHLORIDE LEVEL 111 MMOL/L (98-107); CREATININE FOR GFR 0.71 MG/DL (0.55-1.30); GLOMERULAR FILTRATION RATE > 60.0 (>60); GLUCOSE, FASTING 95 MG/DL (60-100); POTASSIUM SERUM 4.1 MMOL/L (3.5-5.1); SODIUM LEVEL 142 MMOL/L (136-145); TOTAL IRON BINDING CAPACITY 293 UG/DL (250-425); TOTAL PROTEIN 6.6 G/DL (5.7-8.2)
[2023-11-27 16:04] LABS: IRON (FE) 52 UG/DL (50-170); PERCENT SATURATION 17.7 % (13.2-45.0)
[2023-11-27 16:07] LABS: FERRITIN 32.5 NG/ML (7.3-270.7); PROLACTIN 3.56 NG/ML
[2023-11-30 18:12] LABS: HPV APTIMA Not Detected (Not Detected)
[2023-12-02 16:53] LABS: TESTOSTERONE FREE (DIRECT) 3.2 pg/mL (0.1-6.4)
== END ==
LOC: M PLALAB 11:43
PROVIDERS: ATTEND Nurse Practitioner Family
DX: Z12.4 Encounter for screening for malignant neoplasm of cervix (principal); R87.610 Atypical squamous cells of undetermined significance on cytologic smear of cervix (ASC-US); E28.2 Polycystic ovarian syndrome; N92.0 Excessive and frequent menstruation with regular cycle; Z79.899 Other long term (current) drug therapy

== ENCOUNTER → 2023-12-27 | Outpatient (CLI) | payer MEDICARE, MEDICAID | LOC: M WHC 11:20 | PROVIDERS: ATTEND Nurse Practitioner Family | DX: N92.0 Excessive and frequent menstruation with regular cycle (principal); R10.2 Pelvic and perineal pain; N94.10 Unspecified dyspareunia; D25.1 Intramural leiomyoma of uterus; N88.8 Other specified noninflammatory disorders of cervix uteri; N83.202 Unspecified ovarian cyst, left side ==

== ENCOUNTER → 2024-03-29 | Day surgery (SDC) | payer MEDICARE, MEDICAID ==
[~2024-03-29] VITALS: Ht 180.3 cm; Wt 92.4 kg
[~2024-03-29] MED LIST changes: +ADDE30TA PO; +DIAZ-654 PO; +HYDROmorphone HCL 2MG/ML 1ML VIAL As Ordered ONE; +KETOROLAC 60MG 2ML VIAL As Ordered ONE; +LIDOCAINE 2% 100MG/5ML SDV (FOR ANES.) As Ordered ONE; +LR 1,000 ML IV SCH; +MIDAZOLAM INJ 2MG/2ML VIAL As Ordered ONE; +MIDOTAB PO; +ONDANSETRON 4MG 2ML VIAL As Ordered ONE; +ONDANSETRON 4MG 2ML VIAL IV PRN; +ROCURONIUM BROMIDE 50MG/5ML VIAL As Ordered ONE; +SUGAMMADEX SODIUM 500 MG/5 ML VIAL (BRIDION) As Ordered ONE; +fentaNYL 100 MCG/2 ML INJECTION As Ordered ONE; +fentaNYL 100 MCG/2 ML INJECTION IV PRN; +oxyCODONE 5MG TAB PO PRN; +propofoL 200 MG/20 ML VIAL As Ordered ONE
[2024-03-29 09:02] LABS: HEMATOCRIT 47.1 % (36.0-47.0); HEMOGLOBIN 15.9 g/dl (12.0-15.5); MEAN CORPUSCULAR HEMOGLOBIN 32.1 pg (27.0-33.0); MEAN CORPUSCULAR HGB CONC 33.8 g/dl (32.0-36.5); MEAN CORPUSCULAR VOLUME 95.2 fl (80.0-96.0); PLATELET COUNT, AUTOMATED 259 10^3/uL (150-450); RED BLOOD COUNT 4.95 10^6/uL (4.00-5.40); WHITE BLOOD COUNT 8.5 10^3/uL (4.0-10.0)
[2024-03-29 09:28] LABS: ALBUMIN 3.8 G/DL (3.2-5.2); ALKALINE PHOSPHATASE 80 U/L (35-104); ALT/SGPT 11 U/L (7.0-40); AST/SGOT 14 U/L (<34); BILIRUBIN,TOTAL 0.8 MG/DL (0.3-1.2); BLOOD UREA NITROGEN 16 MG/DL (9-23); CARBON DIOXIDE LEVEL 24 MMOL/L (20-31); CHLORIDE LEVEL 110 MMOL/L (98-107); CREATININE FOR GFR 0.67 MG/DL (0.55-1.30); GLOMERULAR FILTRATION RATE > 60.0 (>60); GLUCOSE, FASTING 83 MG/DL (60-100); POTASSIUM SERUM 4.3 MMOL/L (3.5-5.1); SODIUM LEVEL 141 MMOL/L (136-145)
[2024-03-29 09:39] LABS: HCG, SERUM QUALITATIVE NEGATIVE (NEGATIVE)
[2024-03-29] MEDS: ceFAZolin SOD 2 GM in IV 1 EA IV ONE (11:57)
[2024-03-29 14:35] VITALS: BP 123/74; TEMP 96.9; O2SAT 98
== END | disposition home or self-care (01) ==
LOC: M SDC 08:15
PROVIDERS: ATTEND Obstetrics & Gynecology
DX: N85.00 Endometrial hyperplasia, unspecified (principal); N72 Inflammatory disease of cervix uteri; N83.201 Unspecified ovarian cyst, right side; N93.9 Abnormal uterine and vaginal bleeding, unspecified; R10.2 Pelvic and perineal pain; F84.0 Autistic disorder; F43.10 Post-traumatic stress disorder, unspecified; Z91.040 Latex allergy status; Z88.8 Allergy status to other drugs, medicaments and biological substances; Z79.899 Other long term (current) drug therapy; F17.210 Nicotine dependence, cigarettes, uncomplicated
CPT/HCPCS: 36415; 58571; 80053; 84703; 85027; 86850; 86900; 86901; 88307; 93005; A6024; J0665; J0690; J1100; J1171; J1885; J2250; J2405; J3010; S2900

== ENCOUNTER → 2024-07-26 | Outpatient (REF) | payer MEDICARE, MEDICAID ==
[~2024-07-26] MED LIST changes: -HYDROmorphone HCL 2MG/ML 1ML VIAL As Ordered ONE; -KETOROLAC 60MG 2ML VIAL As Ordered ONE; -LIDOCAINE 2% 100MG/5ML SDV (FOR ANES.) As Ordered ONE; -LR 1,000 ML IV SCH; -MIDAZOLAM INJ 2MG/2ML VIAL As Ordered ONE; -ONDANSETRON 4MG 2ML VIAL As Ordered ONE; -ONDANSETRON 4MG 2ML VIAL IV PRN; -ROCURONIUM BROMIDE 50MG/5ML VIAL As Ordered ONE; -SUGAMMADEX SODIUM 500 MG/5 ML VIAL (BRIDION) As Ordered ONE; -fentaNYL 100 MCG/2 ML INJECTION As Ordered ONE; -fentaNYL 100 MCG/2 ML INJECTION IV PRN; -oxyCODONE 5MG TAB PO PRN; -propofoL 200 MG/20 ML VIAL As Ordered ONE
[2024-07-26 15:55] LABS: ALBUMIN 3.6 G/DL (3.2-5.2); ALKALINE PHOSPHATASE 88 U/L (35-104); ALT/SGPT 28 U/L (7.0-40); AST/SGOT 36 U/L (<34); BILIRUBIN,TOTAL 0.2 MG/DL (0.3-1.2); BLOOD UREA NITROGEN 25 MG/DL (9-23); C REACTIVE PROTEIN QUANTITATIV < 0.50 MG/DL (<1.0); CARBON DIOXIDE LEVEL 26 MMOL/L (20-31); CHLORIDE LEVEL 111 MMOL/L (98-107); CHOLESTEROL LEVEL 156 MG/DL (<200); CHOLESTEROL RISK RATIO 3.86 (<5); CREATININE FOR GFR 0.53 MG/DL (0.55-1.30); GLOMERULAR FILTRATION RATE > 60.0 (>60); GLUCOSE, FASTING 87 MG/DL (60-100); HDL CHOLESTEROL 40.4 MG/DL (>40); LDL CHOLESTEROL 102.8 MG/DL (<100); NON-HDL-C 115.6 MG/DL; POTASSIUM SERUM 4.6 MMOL/L (3.5-5.1); SODIUM LEVEL 141 MMOL/L (136-145); TOTAL PROTEIN 6.6 G/DL (5.7-8.2); TRIGLYCERIDES LEVEL 64 MG/DL (<150)
[2024-07-26 15:58] LABS: THYROID STIMULATING HORMONE 1.049 uIU/ML (0.55-4.78)
== END ==
LOC: M LAB REF 15:05
PROVIDERS: ATTEND Family Medicine Addiction Medicine
DX: E03.9 Hypothyroidism, unspecified (principal)

== ENCOUNTER → 2024-08-09 | Outpatient (REF) | payer MEDICARE, MEDICAID ==
[2024-08-09 13:25] LABS: ALBUMIN 4.2 G/DL (3.2-5.2); ALKALINE PHOSPHATASE 90 U/L (35-104); ALT/SGPT 25 U/L (7.0-40); AST/SGOT 26 U/L (<34); BASO % 0.3 % (0.0-1.0); BILIRUBIN,TOTAL 0.5 MG/DL (0.3-1.2); BLOOD UREA NITROGEN 16 MG/DL (9-23); C REACTIVE PROTEIN QUANTITATIV < 0.50 MG/DL (<1.0); CALCIUM LEVEL 9.6 MG/DL (8.5-10.1); CARBON DIOXIDE LEVEL 29 MMOL/L (20-31); CHLORIDE LEVEL 104 MMOL/L (98-107); EOS # 0.1 10^3/uL (0.0-0.5); EOS % 1.1 % (0.0-3.0); GLOMERULAR FILTRATION RATE > 60.0 (>60); GLUCOSE, FASTING 67 MG/DL (60-100); HEMATOCRIT 43.4 % (36.0-47.0); HEMOGLOBIN 14.2 g/dl (12.0-15.5); LYMPH # 2.1 10^3/uL (1.5-5.0); LYMPH % 33.6 % (24.0-44.0); MEAN CORPUSCULAR HEMOGLOBIN 31.8 pg (27.0-33.0); MEAN CORPUSCULAR HGB CONC 32.7 g/dl (32.0-36.5); MEAN CORPUSCULAR VOLUME 97.1 fl (80.0-96.0); MONO # 0.5 10^3/uL (0.0-0.8); MONO % 8.5 % (2.0-8.0); NEUTROPHILS # 3.4 10^3/uL (1.5-8.5); NEUTROPHILS % 56.3 % (36.0-66.0); PLATELET COUNT, AUTOMATED 287 10^3/uL (150-450); POTASSIUM SERUM 4.5 MMOL/L (3.5-5.1); RED BLOOD COUNT 4.47 10^6/uL (4.00-5.40); RHEUMATOID FACTOR QUANT < 3.5 IU/ML (<14); SODIUM LEVEL 142 MMOL/L (136-145); TOTAL PROTEIN 7.5 G/DL (5.7-8.2); WHITE BLOOD COUNT 6.1 10^3/uL (4.0-10.0)
[2024-08-09 13:41] LABS: ERYTHROCYTE SEDIMENTATION RATE 13 mm/hr (0-20)
== END ==
LOC: M LAB REF 12:26
PROVIDERS: ATTEND Family Medicine Addiction Medicine
DX: R21 Rash and other nonspecific skin eruption (principal)

== ENCOUNTER → 2024-09-30 | Outpatient (CLI) | payer MEDICARE, MEDICAID ==
[2024-09-30 09:08] LABS: HEMATOCRIT 41.8 % (36.0-47.0); HEMOGLOBIN 13.8 g/dl (12.0-15.5); MEAN CORPUSCULAR HEMOGLOBIN 32.2 pg (27.0-33.0); MEAN CORPUSCULAR VOLUME 97.4 fl (80.0-96.0); PLATELET COUNT, AUTOMATED 264 10^3/uL (150-450); RED BLOOD COUNT 4.29 10^6/uL (4.00-5.40); WHITE BLOOD COUNT 5.9 10^3/uL (4.0-10.0)
[2024-09-30 09:35] LABS: IRON (FE) 166 UG/DL (50-170); TOTAL IRON BINDING CAPACITY 286 UG/DL (250-425)
[2024-09-30 09:44] LABS: FERRITIN 168.3 NG/ML (7.3-270.7); FREE T4 0.85 NG/DL (0.89-1.76)
[2024-09-30 09:45] LABS: THYROID STIMULATING HORMONE 18.923 uIU/ML (0.55-4.78)
[2024-10-02 15:17] LABS: ANA SCREEN, IFA NEGATIVE (NEGATIVE)
== END ==
LOC: M LAB 08:10
PROVIDERS: ATTEND Physician Assistant
DX: L65.9 Nonscarring hair loss, unspecified (principal)

== ENCOUNTER → 2025-03-21 | Outpatient (REF) | payer MEDICARE, MEDICAID ==
[2025-03-21 15:24] LABS: ALT/SGPT < 9 U/L (7.0-40); AST/SGOT 16 U/L (<34); CALCIUM LEVEL 8.9 MG/DL (8.5-10.1); CARBON DIOXIDE LEVEL 25 MMOL/L (20-31); CHLORIDE LEVEL 103 MMOL/L (98-107); CHOLESTEROL LEVEL 141 MG/DL (<200); CHOLESTEROL RISK RATIO 3.09 (<5); CREATININE FOR GFR 0.67 MG/DL (0.55-1.30); GLOMERULAR FILTRATION RATE > 90.0 (>60); LDL CHOLESTEROL 80.9 MG/DL (<100); NON-HDL-C 95.5 MG/DL; POTASSIUM SERUM 4.1 MMOL/L (3.5-5.1); SODIUM LEVEL 139 MMOL/L (136-145); TRIGLYCERIDES LEVEL 73 MG/DL (<150)
== END ==
LOC: M LAB REF 14:38
PROVIDERS: ATTEND Family Medicine Addiction Medicine
DX: E03.9 Hypothyroidism, unspecified (principal)